=== PATIENT | male | born 1945 | race Caucasian/White ===

== ENCOUNTER 2018-03-16 13:20 | Inpatient (IN) | payer MEDICARE, MEDICAID ==
[~2018-03-16] VITALS: Ht 175.3 cm; Wt 105.2 kg
[2018-03-16 13:28] VITALS: BP 124/82
[2018-03-16] MEDS ORDERED: SEROQUEL25 MG ORAL (13:32)
[2018-03-16] MEDS ORDERED: ASPIR 8181 MG ORAL (13:32)
[2018-03-16] MEDS ORDERED: NOVOLOG100 UNITS1 (13:32)
[2018-03-16] MEDS ORDERED: LIPITOR80 MG ORAL (13:32)
[2018-03-16] MEDS ORDERED: Pantoprazole Inj IV ONE (13:45)
[2018-03-16] MEDS ORDERED: Morphine Sulfate 4mg/ml Inj (IV/IM USE ONLY) IVP ONE (13:45)
--- NOTE | 2018-03-16 13:51 | NUR ---
ED Nurse Note: Patient QU[facility] ([facility]) from [facility] for rectal bleeding, EMS states it started at 1030 AM with bright red blood. Pt is A&O x3, V/S stable. Pt connected to the awake overnight monitor. ERMD at bedside evaluating the pt. Will continue to monitor the pt.
--- NOTE | 2018-03-16 13:59 | Emergency Room Report ---
History of Present Illness General Chief Complaint: Gastrointestinal Bleed Source: Medical Record Present Illness HPI Patient is a 73-year-old male sent in from nursing facility after increased rectal bleeding. Patient had prior history of dementia as well as COPD. Patient reports being a smoker. He reports having some increased difficulty breathing associated with increased rectal bleeding. Patient denies any abdominal pain. He denies any history of liver disease. Patient not been having any vomiting or diarrhea. Patient was sent in from alf..Patient reportedly had been having bright red blood with blood clots from his rectal area. Patient had onset of symptoms today. Patient had prior history of psychiatric disease. Patient was not noted to be on any blood thinners. Allergies: Coded Allergies: No Known Allergies (Unverified , 03/16/18) Patient History Past Medical History: see triage record, COPD Reviewed Nursing Documentation: PMH: Agreed; PSxH: Agreed Nursing Documentation-PMH Past Medical History: No History, Except For Hx Cardiac Problems: Yes - Anemia,hypothyroidism, Hx COPD: Yes - PNA, arf with hypoxia, Hx Diabetes: Yes - type 2 History Of Psychiatric Problem: Yes - schizo Review of Systems All Other Systems: negative except mentioned in HPI Physical Exam Vital Signs Date Time Temp Pulse Resp B/P (MAP) Pulse Ox O2 Delivery O2 Flow Rate FiO2 03/16/18 13:24 97.3 77 24 124/82 93 Nasal Cannula 4.0 General Appearance: non-toxic, obese, Chronically Ill ENT: nasal congestion Neck: limited range of motion Respiratory: wheezing Cardiovascular #1: normal inspection Gastrointestinal: normal inspection, normal bowel sounds, non tender, soft Musculoskeletal: normal inspection Neurologic: normal inspection, alert, responsive Psychiatric: anxious Medical Decision Making Diagnostic Impression: Primary Impression: Gastrointestinal hemorrhage Additional Impressions: COPD (chronic obstructive pulmonary disease) Psychosis Anemia ER Course Patient presented for GI bleed. Differential diagnosis include was not limited to ulcer, gastritis, diverticulosis among others. because of complexity of patient's case laboratory testing and imaging studies were ordered.Patient was noted to have some evidence of mild anemia. The patient was noted to have large amount of bright red blood per rectum. There is no evident external hemorrhoids noted. Laboratory testing was notable for normal coagulation studies as well as normal platelet count. Patient given a breathing treatment. He was given IV Protonix. Dr. Michele Ortiz was contacted for inpatient management due to primary care physician. Dr. Dixon was contacted for GI consult. Dr. Jauregui was contacted for surgical consult. Labs Test 03/16/18 13:40 03/16/18 14:41 White Blood Count 9.8 K/UL (4.8-10.8) Red Blood Count 4.16 M/UL (4.70-6.10) Hemoglobin 11.3 G/DL (14.2-18.0) Hematocrit 35.9 % (42.0-52.0) Mean Corpuscular Volume 86 FL (80-99) Mean Corpuscular Hemoglobin 27.3 PG (27.0-31.0) Mean Corpuscular Hemoglobin Concent 31.6 G/DL (32.0-36.0) Red Cell Distribution Width 22.4 % (11.6-14.8) Platelet Count 277 K/UL (150-450) Mean Platelet Volume 7.6 FL (6.5-10.1) Neutrophils (%) (Auto) 61.3 % (45.0-75.0) Lymphocytes (%) (Auto) 15.7 % (20.0-45.0) Monocytes (%) (Auto) 14.5 % (1.0-10.0) Eosinophils (%) (Auto) 7.2 % (0.0-3.0) Basophils (%) (Auto) 1.3 % (0.0-2.0) Prothrombin Time 10.5 SEC (9.30-11.50) Prothromb Time International Ratio 1.0 (0.9-1.1) Activated Partial Thromboplast Time 31 SEC (23-33) Sodium Level 143 MMOL/L (136-145) Potassium Level 4.4 MMOL/L (3.5-5.1) Chloride Level 108 MMOL/L (98-107) Carbon Dioxide Level 29 MMOL/L (21-32) Anion Gap 6 mmol/L (5-15) Blood Urea Nitrogen 19 mg/dL (7-18) Creatinine 0.9 MG/DL (0.55-1.30) Estimat Glomerular Filtration Rate mL/min (>60) Glucose Level 99 MG/DL (74-106) Calcium Level 9.2 MG/DL (8.5-10.1) Total Bilirubin 0.3 MG/DL (0.2-1.0) Aspartate Amino Transf (AST/SGOT) 13 U/L (15-37) Alanine Aminotransferase (ALT/SGPT) 15 U/L (12-78) Alkaline Phosphatase 115 U/L (46-116) Total Protein 7.0 G/DL (6.4-8.2) Albumin 3.1 G/DL (3.4-5.0) Globulin 3.9 g/dL Albumin/Globulin Ratio 0.8 (1.0-2.7) Lipase 124 U/L (73-393) EKG Diagnostic Results Rate: normal Rhythm: other - atrial fibrilation 100 Last Vital Signs Date Time Temp Pulse Resp B/P (MAP) Pulse Ox O2 Delivery O2 Flow Rate FiO2 03/16/18 13:31 89 19 Room Air 03/16/18 13:28 97.3 124/82 93 03/16/18 13:24 4.0 Status: unchanged Disposition: ADMITTED INPATIENT Condition: Serious Desean Sethi MD Mar 16, 2018 13:59
[2018-03-16] MEDS ORDERED: Albuterol/Ipratropium 3ml neb HHN ONE (14:00)
[2018-03-16 14:01] LABS: BASOPHILS % (AUTO) 1.3 % (0.0-2.0); EOSINOPHILS % (AUTO) 7.2 % (0.0-3.0); HEMATOCRIT 35.9 % (42.0-52.0); HEMOGLOBIN 11.3 G/DL (14.2-18.0); LYMPHOCYTES % (AUTO) 15.7 % (20.0-45.0); MEAN CORPUSCULAR VOLUME 86 FL (80-99); MONOCYTES % (AUTO) 14.5 % (1.0-10.0); NEUTROPHILS % (AUTO) 61.3 % (45.0-75.0); PLATELET COUNT 277 K/UL (150-450); RED BLOOD COUNT 4.16 M/UL (4.70-6.10); RED CELL DISTRIBUTION WIDTH 22.4 % (11.6-14.8); WHITE BLOOD COUNT 9.8 K/UL (4.8-10.8)
[2018-03-16 14:09] LABS: ANION GAP 6 mmol/L (5-15); BLOOD UREA NITROGEN 19 mg/dL (7-18); CALCIUM 9.2 MG/DL (8.5-10.1); CARBON DIOXIDE 29 MMOL/L (21-32); CHLORIDE 108 MMOL/L (98-107); CREATININE 0.9 MG/DL (0.55-1.30); POTASSIUM 4.4 MMOL/L (3.5-5.1); SODIUM 143 MMOL/L (136-145)
[2018-03-16 14:13] LABS: ALANINE AMINOTRANSFERASE 15 U/L (12-78); ALBUMIN 3.1 G/DL (3.4-5.0); ALBUMIN/GLOBULIN RATIO 0.8 (1.0-2.7); ALKALINE PHOSPHATASE 115 U/L (46-116); ASPARTATE AMINO TRANSFERASE 13 U/L (15-37); BILIRUBIN,TOTAL 0.3 MG/DL (0.2-1.0)
--- NOTE | 2018-03-16 14:45 | NUR ---
ED Nurse Note: Urine sample sent down to the lab.
[2018-03-16 14:55] LABS: APPEARANCE,URINE CLEAR; BILIRUBIN, URINE NEGATIVE (NEGATIVE); COLOR,URINE PALE YELLOW; GLUCOSE, URINE (UA) NEGATIVE (NEGATIVE); KETONES,URINE NEGATIVE (NEGATIVE); LEUKOCYTE ESTERASE ,URINE NEGATIVE (NEGATIVE); NITRITE,URINE NEGATIVE (NEGATIVE); PH,URINE 5 (4.5-8.0); PROTEIN,URINE 1+ (NEGATIVE); UROBILINOGEN,URINE NORMAL MG/DL (0.0-1.0)
[2018-03-16 15:28] VITALS: BP 120/75
--- NOTE | 2018-03-16 16:00 | NUR ---
NURSE NOTES: Patient arrived at unit 16:00. Patient is AAO x 2. confused with time and purpose. Patient has left hand 20g IV site patent and intact. Reorientated patient to unit. Heart monitor applied. Patient on o2 NC 2L. Patient has repeating words and rambling but respond to questions appropriately. 17:00: Contacted and received orders from Dr. Villanueva. 17:30: Alfonso Whitlock seen patient. Possible colonoscopy for plan of care. 19:00: Patient stating pain in right arm 10/10. States it has been happening for a week and comes and go. Paged Dr. Juan Villanueva for further orders through service number.
--- NOTE | 2018-03-16 16:10 | NUR ---
ED Nurse Note: Patient transferred to Tele in a gurney accompanied by director of technology with IV saline lock, connected to the monitor tech. Pt V/S stable with no s/s of acute distress noted. Pt's belongings sent up with the patient and report given to NICOLE Reich over in Tele.
[2018-03-16 16:39] VITALS: BP 136/82
--- NOTE | 2018-03-16 17:30 | GI Initial Consult Note ---
History of Present Illness General Date patient seen: Mar 16, 2018 Time patient seen: 17:17 Reason for Hospitalization: Gastrointestinal Bleed Referring physician: MONI Reason for Consultation: LGIB Present Illness HPI Patient is a 73-year-old male sent in from nursing facility after increased rectal bleeding. Patient had prior history of dementia as well as COPD. Patient reports being a smoker. He reports having some increased difficulty breathing associated with increased rectal bleeding. Patient denies any abdominal pain. He denies any history of liver disease. Patient not been having any vomiting or diarrhea. Patient was sent in from alf..Patient reportedly had been having bright red blood with blood clots from his rectal area. Patient had onset of symptoms today. Patient had prior history of psychiatric disease. Patient was not noted to be on any blood thinners. GI consulted for LGIB. ROS limited, patient with psychiatric history. Pt seen , awake A&Ox2 NAD has c/o of BRBPR. Patient stated been having this problem for a few days. Denied any previous onset. Stated he had history of colonoscopy approximately a few years, but unsure of the results. Labs reviewed , patient noted with mild normocytic anemia. Home Meds Reported Medications Quetiapine Fumarate* (SEROQUEL*) 25 Mg Tablet, 25 MG ORAL DAILY, TAB 03/16/18 Insulin Aspart (Novolog Flexpen) 100 Unit/1 Ml Insuln.pen 03/16/18 Atorvastatin (Lipitor) 80 Mg Tablet, 80 MG ORAL BEDTIME, #30 TAB 0 Refills 03/16/18 Aspirin* (ASPIR 81*) 81 Mg Tablet.dr, 81 MG ORAL DAILY, TAB 03/16/18 Med list reviewed/reconciled: Yes Allergies: Coded Allergies: No Known Allergies (Unverified , 03/16/18) Patient History Limited by: medical condition History Provided By: Family Member, Medical Record PMH Narrative Past Medical History: see triage record, COPD Reviewed Nursing Documentation: PMH: Agreed; PSxH: Agreed Nursing Documentation-PMH Past Medical History: No History, Except For Hx Cardiac Problems: Yes - Anemia,hypothyroidism, Hx COPD: Yes - PNA, arf with hypoxia, Hx Diabetes: Yes - type 2 History Of Psychiatric Problem: Yes - schizo Social History: Reports: smoking; Denies: alcohol use, drug use, other Review of Systems All Other Systems: negative except mentioned in HPI Physical Exam Vital Signs Date Time Temp Pulse Resp B/P (MAP) Pulse Ox O2 Delivery O2 Flow Rate FiO2 03/16/18 13:24 97.3 77 24 124/82 93 Nasal Cannula 4.0 03/16/18 14:11 28 Sp02 EP Interpretation: reviewed, normal Labs Laboratory Tests Test 03/16/18 13:40 03/16/18 14:41 White Blood Count 9.8 K/UL (4.8-10.8) Red Blood Count 4.16 M/UL (4.70-6.10) L Hemoglobin 11.3 G/DL (14.2-18.0) L Hematocrit 35.9 % (42.0-52.0) L Mean Corpuscular Volume 86 FL (80-99) Mean Corpuscular Hemoglobin 27.3 PG (27.0-31.0) Mean Corpuscular Hemoglobin Concent 31.6 G/DL (32.0-36.0) L Red Cell Distribution Width 22.4 % (11.6-14.8) H Platelet Count 277 K/UL (150-450) Mean Platelet Volume 7.6 FL (6.5-10.1) Neutrophils (%) (Auto) 61.3 % (45.0-75.0) Lymphocytes (%) (Auto) 15.7 % (20.0-45.0) L Monocytes (%) (Auto) 14.5 % (1.0-10.0) H Eosinophils (%) (Auto) 7.2 % (0.0-3.0) H Basophils (%) (Auto) 1.3 % (0.0-2.0) Prothrombin Time 10.5 SEC (9.30-11.50) Prothromb Time International Ratio 1.0 (0.9-1.1) Activated Partial Thromboplast Time 31 SEC (23-33) Stool Occult Blood Pending Sodium Level 143 MMOL/L (136-145) Potassium Level 4.4 MMOL/L (3.5-5.1) Chloride Level 108 MMOL/L (98-107) H Carbon Dioxide Level 29 MMOL/L (21-32) Anion Gap 6 mmol/L (5-15) Blood Urea Nitrogen 19 mg/dL (7-18) H Creatinine 0.9 MG/DL (0.55-1.30) Estimat Glomerular Filtration Rate mL/min (>60) Glucose Level 99 MG/DL (74-106) Calcium Level 9.2 MG/DL (8.5-10.1) Total Bilirubin 0.3 MG/DL (0.2-1.0) Aspartate Amino Transf (AST/SGOT) 13 U/L (15-37) L Alanine Aminotransferase (ALT/SGPT) 15 U/L (12-78) Alkaline Phosphatase 115 U/L (46-116) Total Protein 7.0 G/DL (6.4-8.2) Albumin 3.1 G/DL (3.4-5.0) L Globulin 3.9 g/dL Albumin/Globulin Ratio 0.8 (1.0-2.7) L Lipase 124 U/L (73-393) Urine Color Pale yellow Urine Appearance Clear Urine pH 5 (4.5-8.0) Urine Specific [place] 1.015 (1.005-1.035) Urine Protein 1+ (NEGATIVE) H Urine Glucose (UA) Negative (NEGATIVE) Urine Ketones Negative (NEGATIVE) Urine Blood 5+ (NEGATIVE) H Urine Nitrite Negative (NEGATIVE) Urine Bilirubin Negative (NEGATIVE) Urine Urobilinogen Normal MG/DL (0.0-1.0) Urine Leukocyte Esterase Negative (NEGATIVE) Urine RBC 15-20 /HPF (0 - 0) H Urine WBC 2-4 /HPF (0 - 0) Urine Squamous Epithelial Cells None /LPF (NONE/OCC) Urine Bacteria Few /HPF (NONE) Urine Yeast Few /HPF (NONE) H General Appearance: well appearing, no apparent distress, alert Head: normocephalic EENT: PERRL/EOMI, normal ENT inspection Neck: supple Respiratory: normal breath sounds, no respiratory distress Cardiovascular: normal rate Gastrointestinal: normal inspection, non tender, soft, normal bowel sounds, non -distended Rectal: deferred Genitourinary: deferred Musculoskeletal: normal inspection, back normal Neurologic: normal inspection, alert, oriented x3, responsive Psychiatric: normal inspection, judgement/insight normal, memory normal Skin: normal inspection, normal color, no rash, warm/dry, palpation normal, well hydrated Lymphatic: normal inspection, no adenopathy GI: Plan Problems: (1) LGI bleed (2) Acute hemorrhoid (3) Gastrointestinal hemorrhage (4) Psychosis (5) Anemia (6) COPD (chronic obstructive pulmonary disease) Plan stable H&H plan for colonoscopy this Sunday CLD now, will prep patient tomorrow monitor H&H, prn transfusions ppi anusol BID zofran prn anemia work up follow labs Discussed with Dr. Dixon. Thank you for this patient referral, we will follow. The patient was seen and examined at bedside and all new and available data was reviewed in the patients chart. I agree with the above findings, impression and plan. (Patient seen earlier today. Signature stamp does not reflect patient encounter time.). - MD Batsheva CalderonAvenir Behavioral Health Center At SurpriseKorey ROLLER COASTER DESIGNER Mar 16, 2018 17:30
[2018-03-16] MEDS ORDERED: Pantoprazole Inj IVP SCH (18:00)
[2018-03-16 20:00] VITALS: BP 132/82
[2018-03-16] MEDS: D5NS 1,000 ML IV SCH (20:02)
--- NOTE | 2018-03-16 20:27 | NUR ---
HAND-OFF: Report given to NICOLE Jhaveri. patient resting in bed.
--- NOTE | 2018-03-16 20:28 | NUR ---
NURSE NOTES: Received pt from NICOLE Reich. Pt awake, alert, and screaming in pain "help me help me". Bed in lowest position. Call light within reach. Will continue to monitor.
[2018-03-16 20:47] LABS: BASOPHILS % (AUTO) 2.1 % (0.0-2.0); EOSINOPHILS % (AUTO) 7.9 % (0.0-3.0); HEMATOCRIT 34.3 % (42.0-52.0); HEMOGLOBIN 10.6 G/DL (14.2-18.0); LYMPHOCYTES % (AUTO) 19.4 % (20.0-45.0); MEAN CORPUSCULAR VOLUME 88 FL (80-99); MONOCYTES % (AUTO) 17.6 % (1.0-10.0); NEUTROPHILS % (AUTO) 53.1 % (45.0-75.0); PLATELET COUNT 262 K/UL (150-450); RED BLOOD COUNT 3.91 M/UL (4.70-6.10); RED CELL DISTRIBUTION WIDTH 21.8 % (11.6-14.8); WHITE BLOOD COUNT 10.3 K/UL (4.8-10.8)
[2018-03-16] MEDS: Pantoprazole Inj IVP SCH (20:47)
[2018-03-16] MEDS: NovoLOG Insulin Flexpen SUBQ SCH (20:49)
--- NOTE | 2018-03-16 21:00 | NUR ---
NURSE NOTES: Called and left a message with Dr. Villanueva regarding pts request for pain meds, sleep aid, and anxiety. She called back with orders for morphine 2mg q4 iv prn and ativan 1mg q6 prn. Will input orders
[2018-03-16] MEDS: Morphine Sulfate 2mg/ml Inj IVP PRN (22:38)
[2018-03-17] VITALS: BP 135/80
[2018-03-17] MEDS: LORazepam Inj 2mg/ml 1ml IV PRN (01:07)
[2018-03-17] MEDS ORDERED: Digoxin 0.5mg/2ml Inj IVP ONE (03:45)
--- NOTE | 2018-03-17 03:50 | NUR ---
NURSE NOTES: Called and spoke with Dr. Villanueva regarding pts Afib with RVR. She gave orders for Digoxin 250 mcg IV once. Will input order.
[2018-03-17 04:00] VITALS: BP 129/91
[2018-03-17] MEDS: D5NS 1,000 ML IV SCH ×2 (04:00→11:43)
[2018-03-17] MEDS: NovoLOG Insulin Flexpen SUBQ SCH ×4 (05:52→21:00)
--- NOTE | 2018-03-17 07:37 | NUR ---
HAND-OFF: Report given to Carlos Alberto. pt stable.
[2018-03-17 07:41] LABS: BASOPHILS % (AUTO) 1.5 % (0.0-2.0); EOSINOPHILS % (AUTO) 7.2 % (0.0-3.0); HEMATOCRIT 33.7 % (42.0-52.0); HEMOGLOBIN 10.7 G/DL (14.2-18.0); LYMPHOCYTES % (AUTO) 15.8 % (20.0-45.0); MEAN CORPUSCULAR VOLUME 87 FL (80-99); MONOCYTES % (AUTO) 15.8 % (1.0-10.0); NEUTROPHILS % (AUTO) 59.8 % (45.0-75.0); PLATELET COUNT 272 K/UL (150-450); RED BLOOD COUNT 3.88 M/UL (4.70-6.10); RED CELL DISTRIBUTION WIDTH 22.2 % (11.6-14.8); WHITE BLOOD COUNT 11.3 K/UL (4.8-10.8)
--- NOTE | 2018-03-17 07:45 | NUR ---
NURSE NOTES: Pt received from Shakila Sargent RN alert and oriented x3. No acute distress at this time. IV site asymptomatic and patent. Bed in lowest position, call light and belongings within reach. On 2L NC - no s/s of SOB or chest pain, saturating at 95%.
[2018-03-17 08:00] VITALS: BP 171/87
[2018-03-17 08:17] LABS: % IRON SATURATION 24 % (15-50); IRON 50 ug/dL (50-175); TOTAL IRON BINDING CAPACITY 211 ug/dL (250-450)
[2018-03-17 08:25] LABS: ALANINE AMINOTRANSFERASE 14 U/L (12-78); ALBUMIN/GLOBULIN RATIO 0.8 (1.0-2.7); ALKALINE PHOSPHATASE 110 U/L (46-116); ANION GAP 8 mmol/L (5-15); ASPARTATE AMINO TRANSFERASE 18 U/L (15-37); BILIRUBIN,TOTAL 0.3 MG/DL (0.2-1.0); BLOOD UREA NITROGEN 13 mg/dL (7-18); CALCIUM 8.6 MG/DL (8.5-10.1); CARBON DIOXIDE 28 MMOL/L (21-32); CHLORIDE 107 MMOL/L (98-107); FERRITIN 50 NG/ML (8-388); SODIUM 142 MMOL/L (136-145)
[2018-03-17] MEDS: Pantoprazole Inj IVP SCH ×2 (09:02→20:52)
[2018-03-17] MEDS: Morphine Sulfate 2mg/ml Inj IVP PRN ×3 (09:03→20:53)
--- NOTE | 2018-03-17 09:03 | NUR ---
CASE MANAGEMENT: INITIAL REVIEW 73 YO M [facility] FROM [facility] CC: GI BLEED. PMHx: ANEMIA. HYPOTHYROIDISM. PNA. ARF W/ HYPOXIA. DM. SCHIZO. SI:LOWER GI BLEED. T 97.3 HR 77 RR 24 B/P 124/82 SATS 93% ON 4L/NC WBC 11.3 HGB 10.7 HCT 33.7 TSH 49.435 STOOL OB (+) IS: PROTONIX IV X1 NS BOLUS X1 MORPHINE IV X1 DUONEB HHN X1 PATIENT ADMITTED TO TELE 03/16/2018 @ 1535 DCP: PATIENT TO BE DISCHARGED TO SNF ONCE MEDICALLY CLEARED. PLAN OF CARE: COLONOSCOPY Addendum: 03/17/18 at 1445 by Yadira Melgoza CM INTERQUAL MET FOR ACUTE
--- NOTE | 2018-03-17 10:01 | History and Physical ---
History of Present Illness General Date patient seen: Mar 17, 2018 Reason for Hospitalization: Gastrointestinal Bleed Present Illness HPI 73 y/o male with copd,psych d/o sent to er for BRBPR. Pt. states has had this for several days. Has been on asa nand possible NSAiDS. He had previous coloscopy unknown results. h/h has been trending down. Pt. seen by GI, plan for colonoscopy tomorrow am. He does have episodes of sob/wheezing last few days. Allergies: Coded Allergies: No Known Allergies (Unverified , 03/16/18) Medication History Scheduled Aspirin* (Aspir 81*), 81 MG ORAL DAILY, (Reported) Atorvastatin (Lipitor), 80 MG ORAL BEDTIME, (Reported) Quetiapine Fumarate* (Seroquel*), 25 MG ORAL DAILY, (Reported) Miscellaneous Medications Insulin Aspart (Novolog Flexpen), (Reported) Patient History Healthcare decision maker Resuscitation status Full Code Advanced Directive on File Social History Social History: (1) Smoker in home (2) COPD (chronic obstructive pulmonary disease) (3) Anemia (4) Psychosis (5) LGI bleed Review of Systems Constitutional: Reports: malaise Eye: Denies: no symptoms, see HPI, eye pain, blurred vision, tearing, double vision, nose pain, nose congestion, acuity changes, discharge, other ENT: Denies: no symptoms, see HPI, ear pain, ear discharge, nose pain, nose congestion, throat pain, throat swelling, mouth pain, hearing loss, nasal discharge, other Respiratory: Reports: shortness of breath Cardiovascular: Denies: no symptoms, see HPI, chest pain, edema, palpitations, syncope, PND, other Gastrointestinal: Reports: melena Genitourinary: Denies: no symptoms, see HPI, discharge, dysuria, frequency, hematuria, pain, retention, incontinence, urgency, vag bleed/dc, other Musculoskeletal: Denies: no symptoms, see HPI, back pain, gout, joint pain, joint swelling, muscle pain, muscle stiffness, other Skin: Denies: no symptoms, see HPI, rash, change in color, change in hair/nails , dryness, lesions, other Psychiatric: Denies: no symptoms, see HPI, prior hx, anxiety, depressed feelings, emotional problems, SI, HI, hallucinations, other Neurological: Denies: no symptoms, see HPI, headache, numbness, paresthesia, seizure, tingling, tremors, focal weakness, syncope, dizziness, other Endocrine: Denies: no symptoms, see HPI, excessive sweating, flushing, intolerance to temperature, increased thirst, increased urine, unexplained weight loss, other Physical Exam General Appearance: no apparent distress, alert HEENT: normocephalic, atraumatic, anicteric, EOMI Neck: non-tender Respiratory/Chest: expiratory wheezing Cardiovascular/Chest: normal peripheral pulses Abdomen: normal bowel sounds, non tender, no organomegaly, no mass Genitourinary/Rectal: normal genital exam Extremities: normal range of motion, no calf tenderness Skin Exam: warm/dry Neurologic: oriented x 3 Last 24 Hour Vital Signs Date Time Temp Pulse Resp B/P (MAP) Pulse Ox O2 Delivery O2 Flow Rate FiO2 03/17/18 08:00 97.4 109 20 171/87 (115) 95 03/17/18 04:24 127 03/17/18 04:21 108 03/17/18 04:00 97.5 64 24 129/91 (104) 94 03/17/18 04:00 129 03/17/18 01:33 131 03/17/18 00:00 97.3 72 24 135/80 (98) 95 03/16/18 23:08 97.7 03/16/18 21:00 Room Air 03/16/18 20:00 97.3 67 24 132/82 (99) 95 03/16/18 20:00 104 03/16/18 18:30 Nasal Cannula 2.0 03/16/18 16:39 97.7 97 18 136/82 (100) 95 03/16/18 16:06 97.8 103 17 115/70 96 Nasal Cannula 2.0 28 03/16/18 15:28 97.8 101 15 120/75 96 Nasal Cannula 2.0 03/16/18 14:32 97.3 03/16/18 14:30 84 22 98 Nasal Cannula 2.0 28 03/16/18 14:11 91 16 100 Nasal Cannula 2.0 28 03/16/18 13:31 89 19 Room Air 03/16/18 13:28 97.3 89 19 124/82 93 Room Air 03/16/18 13:24 97.3 77 24 124/82 93 Nasal Cannula 4.0 Intake and Output 2/9/19 2/10/19 18:59 06:59 Intake Total 120 ml 120 ml Output Total 400 ml Balance -280 ml 120 ml Intake Oral 120 ml 120 ml Output Urine Total 400 ml # Voids 1 4 Laboratory Tests Test 03/16/18 13:40 03/16/18 14:41 03/16/18 20:00 03/17/18 06:40 White Blood Count 9.8 K/UL (4.8-10.8) 10.3 K/UL (4.8-10.8) 11.3 K/UL (4.8-10.8) H Red Blood Count 4.16 M/UL (4.70-6.10) L 3.91 M/UL (4.70-6.10) L 3.88 M/UL (4.70-6.10) L Hemoglobin 11.3 G/DL (14.2-18.0) L 10.6 G/DL (14.2-18.0) L 10.7 G/DL (14.2-18.0) L Hematocrit 35.9 % (42.0-52.0) L 34.3 % (42.0-52.0) L 33.7 % (42.0-52.0) L Mean Corpuscular Volume 86 FL (80-99) 88 FL (80-99) 87 FL (80-99) Mean Corpuscular Hemoglobin 27.3 PG (27.0-31.0) 27.1 PG (27.0-31.0) 27.4 PG (27.0-31.0) Mean Corpuscular Hemoglobin Concent 31.6 G/DL (32.0-36.0) L 31.0 G/DL (32.0-36.0) L 31.6 G/DL (32.0-36.0) L Red Cell Distribution Width 22.4 % (11.6-14.8) H 21.8 % (11.6-14.8) H 22.2 % (11.6-14.8) H Platelet Count 277 K/UL (150-450) 262 K/UL (150-450) 272 K/UL (150-450) Mean Platelet Volume 7.6 FL (6.5-10.1) 6.8 FL (6.5-10.1) 6.5 FL (6.5-10.1) Neutrophils (%) (Auto) 61.3 % (45.0-75.0) 53.1 % (45.0-75.0) 59.8 % (45.0-75.0) Lymphocytes (%) (Auto) 15.7 % (20.0-45.0) L 19.4 % (20.0-45.0) L 15.8 % (20.0-45.0) L Monocytes (%) (Auto) 14.5 % (1.0-10.0) H 17.6 % (1.0-10.0) H 15.8 % (1.0-10.0) H Eosinophils (%) (Auto) 7.2 % (0.0-3.0) H 7.9 % (0.0-3.0) H 7.2 % (0.0-3.0) H Basophils (%) (Auto) 1.3 % (0.0-2.0) 2.1 % (0.0-2.0) H 1.5 % (0.0-2.0) Prothrombin Time 10.5 SEC (9.30-11.50) 10.7 SEC (9.30-11.50) Prothromb Time International Ratio 1.0 (0.9-1.1) 1.0 (0.9-1.1) Activated Partial Thromboplast Time 31 SEC (23-33) 31 SEC (23-33) Stool Occult Blood Positive (NEGATIVE) Sodium Level 143 MMOL/L (136-145) 142 MMOL/L (136-145) Potassium Level 4.4 MMOL/L (3.5-5.1) 4.0 MMOL/L (3.5-5.1) Chloride Level 108 MMOL/L (98-107) H 107 MMOL/L (98-107) Carbon Dioxide Level 29 MMOL/L (21-32) 28 MMOL/L (21-32) Anion Gap 6 mmol/L (5-15) 8 mmol/L (5-15) Blood Urea Nitrogen 19 mg/dL (7-18) H 13 mg/dL (7-18) Creatinine 0.9 MG/DL (0.55-1.30) 1.0 MG/DL (0.55-1.30) Estimat Glomerular Filtration Rate mL/min (>60) mL/min (>60) Glucose Level 99 MG/DL (74-106) 88 MG/DL (74-106) Calcium Level 9.2 MG/DL (8.5-10.1) 8.6 MG/DL (8.5-10.1) Total Bilirubin 0.3 MG/DL (0.2-1.0) 0.3 MG/DL (0.2-1.0) Aspartate Amino Transf (AST/SGOT) 13 U/L (15-37) L 18 U/L (15-37) Alanine Aminotransferase (ALT/SGPT) 15 U/L (12-78) 14 U/L (12-78) Alkaline Phosphatase 115 U/L (46-116) 110 U/L (46-116) Total Protein 7.0 G/DL (6.4-8.2) 6.7 G/DL (6.4-8.2) Albumin 3.1 G/DL (3.4-5.0) L 3.0 G/DL (3.4-5.0) L Globulin 3.9 g/dL 3.7 g/dL Albumin/Globulin Ratio 0.8 (1.0-2.7) L 0.8 (1.0-2.7) L Lipase 124 U/L (73-393) Urine Color Pale yellow Urine Appearance Clear Urine pH 5 (4.5-8.0) Urine Specific [place] 1.015 (1.005-1.035) Urine Protein 1+ (NEGATIVE) H Urine Glucose (UA) Negative (NEGATIVE) Urine Ketones Negative (NEGATIVE) Urine Blood 5+ (NEGATIVE) H Urine Nitrite Negative (NEGATIVE) Urine Bilirubin Negative (NEGATIVE) Urine Urobilinogen Normal MG/DL (0.0-1.0) Urine Leukocyte Esterase Negative (NEGATIVE) Urine RBC 15-20 /HPF (0 - 0) H Urine WBC 2-4 /HPF (0 - 0) Urine Squamous Epithelial Cells None /LPF (NONE/OCC) Urine Bacteria Few /HPF (NONE) Urine Yeast Few /HPF (NONE) H Reticulocyte Count Pending Iron Level 50 ug/dL (50-175) Total Iron Binding Capacity 211 ug/dL (250-450) L Percent Iron Saturation 24 % (15-50) Unsaturated Iron Binding 161 ug/dL (112-346) Ferritin 50 NG/ML (8-388) Carcinoembryonic Antigen Pending Vitamin B12 Level 535 PG/ML (193-986) Folate 12.4 NG/ML (8.6-58.9) Thyroid Stimulating Hormone (TSH) 49.435 uiU/mL (0.358-3.740) Free Thyroxine 0.37 NG/DL (0.76-1.46) L Microbiology Date/Time Source Procedure Growth Status 03/16/18 14:41 Urine,Clean Catch Urine Culture - Preliminary NO GROWTH Resulted Height (Feet): 5 Height (Inches): 9.00 Weight (Pounds): 180 Medications Current Medications Medications (Trade) Dose Ordered Sig/Valeria Route PRN Reason Start Time Stop Time Status Last Admin Dose Admin Bisacodyl (Dulcolax) 10 mg ONCE ORAL 03/17/18 16:00 03/17/18 17:30 Dextrose (Dextrose 50%) 25 ml Q30M PRN IV Hypoglycemia 03/16/18 17:43 04/15/18 17:42 Dextrose (Dextrose 50%) 50 ml Q30M PRN IV Hypoglycemia 03/16/18 17:42 04/15/18 17:41 Dextrose/Sodium Chloride 1,000 ml @ 100 mls/hr Q10H IV 03/16/18 18:00 04/15/18 17:59 03/16/18 20:02 Hydrocortisone (Anusol HC) 1 applic Q12HR RECTAL 03/16/18 21:00 04/15/18 20:59 03/17/18 09:02 Insulin Aspart (NovoLOG) BEFORE MEALS AND HS SUBQ 03/16/18 21:00 04/15/18 20:59 03/16/18 20:49 Lorazepam (Ativan 2mg/ml 1ml) 1 mg Q6H PRN IV For Anxiety 03/16/18 21:44 03/23/18 21:43 03/17/18 01:07 Magnesium Citrate (Citrate Of Magnesia) 300 ml ONCE ONCE ORAL 03/17/18 16:00 03/17/18 16:01 Morphine Sulfate (Morphine Sulfate) 2 mg Q4H PRN IVP For Pain 03/16/18 21:44 2/16/19 21:43 03/17/18 09:03 Pantoprazole (Protonix) 40 mg Q12HR IVP 03/16/18 21:00 04/15/18 20:59 03/17/18 09:02 Polyethylene Glycol (Miralax) 238 gm ONCE ONCE ORAL 03/17/18 16:00 03/17/18 16:01 Quetiapine Fumarate (SEROquel) 25 mg DAILY ORAL 03/17/18 09:00 04/16/18 08:59 03/17/18 09:02 Sodium Phosphate (Fleet's Sodium Phosl Enema) 133 ml ONCE RECTAL 03/17/18 23:00 03/18/18 00:00 Assessment/Plan Problem List: (1) COPD (chronic obstructive pulmonary disease) Assessment & Plan: -will get cxr prior to colonoscopy -resume hhn, o2 prn -d/w pt. smoking cessation ICD Codes: J44.9 - Chronic obstructive pulmonary disease, unspecified SNOMED: 76280554 (2) LGI bleed Assessment & Plan: -follow h/h. -appreciate gi eval -planned gi w/u in am -hold asa -cont ppi, dvt prophylaxis ICD Codes: K92.2 - Gastrointestinal hemorrhage, unspecified SNOMED: [id number] Michele Ortiz M.D. Mar 17, 2018 10:01
[2018-03-17 12:00] VITALS: BP 146/94
--- NOTE | 2018-03-17 13:35 | Consultation ---
History of Present Illness General Date patient seen: Mar 17, 2018 Reason for Hospitalization: Gastrointestinal Bleed Present Illness HPI 73 year old male correction resident with multiple medical comorbidities on ASA presented with increased BRBPR. Has been noted for short period of time and concerning. No prior similar history. otherwise normal BM's. is care dependant and a poor historian. on admission noted to be anemic. Surgery called to evaluate for lower GI bleed and be available in case worsening, persist, or needs surgical intervention. patient seen, chart reviewed, patient examined. currently anticipating colonoscopy tomorrow Allergies: Coded Allergies: No Known Allergies (Unverified , 03/16/18) Medication History Scheduled Aspirin* (Aspir 81*), 81 MG ORAL DAILY, (Reported) Atorvastatin (Lipitor), 80 MG ORAL BEDTIME, (Reported) Quetiapine Fumarate* (Seroquel*), 25 MG ORAL DAILY, (Reported) Miscellaneous Medications Insulin Aspart (Novolog Flexpen), (Reported) Patient History Limited by: medical condition History Provided By: Patient, Medical Record, PMD Healthcare decision maker Resuscitation status Full Code Advanced Directive on File Past Medical/Surgical History Past Medical/Surgical History: (1) COPD (chronic obstructive pulmonary disease) (2) Anemia (3) Psychosis (4) Gastrointestinal hemorrhage (5) LGI bleed (6) Acute hemorrhoid Review of Systems Review of Symptoms General ROS: no weight loss or fever Psychological ROS: no depression or mood changes, no memory loss Ophthalmic ROS: no visual changes or eye irritation ENT ROS: no nasal congestion, hearing loss, dizziness Allergy and Immunology ROS: no allergic symptoms or urticaria Hematological and Lymphatic ROS: no swollen glands, unusual bleeding or bruising Endocrine ROS: no polyuria, polydipsia, weight changes, temperature intolerance Respiratory ROS: no cough, shortness of breath, or wheezing Cardiovascular ROS: no chest pain or dyspnea on exertion Gastrointestinal ROS: denies abdominal pain, bright red blood in stool. Musculoskeletal ROS: no myalgias or arthralgias Neurological ROS: no TIA or stroke symptoms Dermatological ROS: no new or changing skin lesions, rashes or pruritis Physical Exam Physical Exam General appearance: alert, cooperative, no distress, appears stated age Head: Normocephalic, without obvious abnormality, atraumatic Eyes: conjunctivae/corneas clear. PERRL, EOM's intact. Fundi benign Throat: Lips, mucosa, and tongue normal. Teeth and gums normal Neck: supple, symmetrical, trachea midline, no adenopathy, thyroid: not enlarged, symmetric, no tenderness/mass/nodules, no carotid bruit and no JVD Lungs: clear to auscultation bilaterally Heart: regular rate and rhythm, S1, S2 normal, no murmur, click, rub or gallop Abdomen: soft, non-tender. Bowel sounds normal. No masses, no organomegaly Extremities: extremities normal, atraumatic, no cyanosis or edema Pulses: 2+ and symmetric Skin: Skin color, texture, turgor normal. No rashes or lesions Neurologic: Grossly normal Last 24 Hour Vital Signs Date Time Temp Pulse Resp B/P (MAP) Pulse Ox O2 Delivery O2 Flow Rate FiO2 03/17/18 12:00 90 03/17/18 12:00 97.2 91 18 146/94 (111) 94 03/17/18 09:00 Room Air 03/17/18 08:00 97.4 109 20 171/87 (115) 95 03/17/18 04:24 127 03/17/18 04:21 108 03/17/18 04:00 97.5 64 24 129/91 (104) 94 03/17/18 04:00 129 03/17/18 01:33 131 03/17/18 00:00 97.3 72 24 135/80 (98) 95 03/16/18 23:08 97.7 03/16/18 21:00 Room Air 03/16/18 20:00 97.3 67 24 132/82 (99) 95 03/16/18 20:00 104 03/16/18 18:30 Nasal Cannula 2.0 03/16/18 16:39 97.7 97 18 136/82 (100) 95 03/16/18 16:06 97.8 103 17 115/70 96 Nasal Cannula 2.0 28 03/16/18 15:28 97.8 101 15 120/75 96 Nasal Cannula 2.0 03/16/18 14:32 97.3 03/16/18 14:30 84 22 98 Nasal Cannula 2.0 28 03/16/18 14:11 91 16 100 Nasal Cannula 2.0 28 03/16/18 13:31 89 19 Room Air Intake and Output 03/16/18 03/17/18 19:00 07:00 Intake Total 120 ml 120 ml Output Total 400 ml Balance -280 ml 120 ml Intake Oral 120 ml 120 ml Output Urine Total 400 ml # Voids 1 4 Laboratory Tests Test 03/16/18 13:40 03/16/18 14:41 03/16/18 20:00 03/17/18 06:40 White Blood Count 9.8 K/UL (4.8-10.8) 10.3 K/UL (4.8-10.8) 11.3 K/UL (4.8-10.8) H Red Blood Count 4.16 M/UL (4.70-6.10) L 3.91 M/UL (4.70-6.10) L 3.88 M/UL (4.70-6.10) L Hemoglobin 11.3 G/DL (14.2-18.0) L 10.6 G/DL (14.2-18.0) L 10.7 G/DL (14.2-18.0) L Hematocrit 35.9 % (42.0-52.0) L 34.3 % (42.0-52.0) L 33.7 % (42.0-52.0) L Mean Corpuscular Volume 86 FL (80-99) 88 FL (80-99) 87 FL (80-99) Mean Corpuscular Hemoglobin 27.3 PG (27.0-31.0) 27.1 PG (27.0-31.0) 27.4 PG (27.0-31.0) Mean Corpuscular Hemoglobin Concent 31.6 G/DL (32.0-36.0) L 31.0 G/DL (32.0-36.0) L 31.6 G/DL (32.0-36.0) L Red Cell Distribution Width 22.4 % (11.6-14.8) H 21.8 % (11.6-14.8) H 22.2 % (11.6-14.8) H Platelet Count 277 K/UL (150-450) 262 K/UL (150-450) 272 K/UL (150-450) Mean Platelet Volume 7.6 FL (6.5-10.1) 6.8 FL (6.5-10.1) 6.5 FL (6.5-10.1) Neutrophils (%) (Auto) 61.3 % (45.0-75.0) 53.1 % (45.0-75.0) 59.8 % (45.0-75.0) Lymphocytes (%) (Auto) 15.7 % (20.0-45.0) L 19.4 % (20.0-45.0) L 15.8 % (20.0-45.0) L Monocytes (%) (Auto) 14.5 % (1.0-10.0) H 17.6 % (1.0-10.0) H 15.8 % (1.0-10.0) H Eosinophils (%) (Auto) 7.2 % (0.0-3.0) H 7.9 % (0.0-3.0) H 7.2 % (0.0-3.0) H Basophils (%) (Auto) 1.3 % (0.0-2.0) 2.1 % (0.0-2.0) H 1.5 % (0.0-2.0) Prothrombin Time 10.5 SEC (9.30-11.50) 10.7 SEC (9.30-11.50) Prothromb Time International Ratio 1.0 (0.9-1.1) 1.0 (0.9-1.1) Activated Partial Thromboplast Time 31 SEC (23-33) 31 SEC (23-33) Stool Occult Blood Positive (NEGATIVE) Sodium Level 143 MMOL/L (136-145) 142 MMOL/L (136-145) Potassium Level 4.4 MMOL/L (3.5-5.1) 4.0 MMOL/L (3.5-5.1) Chloride Level 108 MMOL/L (98-107) H 107 MMOL/L (98-107) Carbon Dioxide Level 29 MMOL/L (21-32) 28 MMOL/L (21-32) Anion Gap 6 mmol/L (5-15) 8 mmol/L (5-15) Blood Urea Nitrogen 19 mg/dL (7-18) H 13 mg/dL (7-18) Creatinine 0.9 MG/DL (0.55-1.30) 1.0 MG/DL (0.55-1.30) Estimat Glomerular Filtration Rate mL/min (>60) mL/min (>60) Glucose Level 99 MG/DL (74-106) 88 MG/DL (74-106) Calcium Level 9.2 MG/DL (8.5-10.1) 8.6 MG/DL (8.5-10.1) Total Bilirubin 0.3 MG/DL (0.2-1.0) 0.3 MG/DL (0.2-1.0) Aspartate Amino Transf (AST/SGOT) 13 U/L (15-37) L 18 U/L (15-37) Alanine Aminotransferase (ALT/SGPT) 15 U/L (12-78) 14 U/L (12-78) Alkaline Phosphatase 115 U/L (46-116) 110 U/L (46-116) Total Protein 7.0 G/DL (6.4-8.2) 6.7 G/DL (6.4-8.2) Albumin 3.1 G/DL (3.4-5.0) L 3.0 G/DL (3.4-5.0) L Globulin 3.9 g/dL 3.7 g/dL Albumin/Globulin Ratio 0.8 (1.0-2.7) L 0.8 (1.0-2.7) L Lipase 124 U/L (73-393) Urine Color Pale yellow Urine Appearance Clear Urine pH 5 (4.5-8.0) Urine Specific Bradford 1.015 (1.005-1.035) Urine Protein 1+ (NEGATIVE) H Urine Glucose (UA) Negative (NEGATIVE) Urine Ketones Negative (NEGATIVE) Urine Blood 5+ (NEGATIVE) H Urine Nitrite Negative (NEGATIVE) Urine Bilirubin Negative (NEGATIVE) Urine Urobilinogen Normal MG/DL (0.0-1.0) Urine Leukocyte Esterase Negative (NEGATIVE) Urine RBC 15-20 /HPF (0 - 0) H Urine WBC 2-4 /HPF (0 - 0) Urine Squamous Epithelial Cells None /LPF (NONE/OCC) Urine Bacteria Few /HPF (NONE) Urine Yeast Few /HPF (NONE) H Reticulocyte Count 1.6 % (0.0-2.0) Iron Level 50 ug/dL (50-175) Total Iron Binding Capacity 211 ug/dL (250-450) L Percent Iron Saturation 24 % (15-50) Unsaturated Iron Binding 161 ug/dL (112-346) Ferritin 50 NG/ML (8-388) Carcinoembryonic Antigen Pending Vitamin B12 Level 535 PG/ML (193-986) Folate 12.4 NG/ML (8.6-58.9) Thyroid Stimulating Hormone (TSH) 49.435 uiU/mL (0.358-3.740) Free Thyroxine 0.37 NG/DL (0.76-1.46) L Microbiology Date/Time Source Procedure Growth Status 03/16/18 14:41 Urine,Clean Catch Urine Culture - Preliminary NO GROWTH Resulted Height (Feet): 5 Height (Inches): 9.00 Weight (Pounds): 180 Medications Current Medications Medications (Trade) Dose Ordered Sig/Valeria Route PRN Reason Start Time Stop Time Status Last Admin Dose Admin Bisacodyl (Dulcolax) 10 mg ONCE ORAL 03/17/18 16:00 03/17/18 17:30 Dextrose (Dextrose 50%) 25 ml Q30M PRN IV Hypoglycemia 03/16/18 17:43 04/15/18 17:42 Dextrose (Dextrose 50%) 50 ml Q30M PRN IV Hypoglycemia 03/16/18 17:42 04/15/18 17:41 Dextrose/Sodium Chloride 1,000 ml @ 75 mls/hr [id number] IV 03/17/18 10:30 04/15/18 10:29 03/17/18 11:43 Hydrocortisone (Anusol HC) 1 applic Q12HR RECTAL 03/16/18 21:00 04/15/18 20:59 03/17/18 09:02 Insulin Aspart (NovoLOG) BEFORE MEALS AND HS SUBQ 03/16/18 21:00 04/15/18 20:59 03/17/18 12:40 Lorazepam (Ativan 2mg/ml 1ml) 1 mg Q6H PRN IV For Anxiety 03/16/18 21:44 03/23/18 21:43 03/17/18 01:07 Magnesium Citrate (Citrate Of Magnesia) 300 ml ONCE ONCE ORAL 03/17/18 16:00 03/17/18 16:01 Morphine Sulfate (Morphine Sulfate) 2 mg Q4H PRN IVP For Pain 03/16/18 21:44 03/23/18 21:43 03/17/18 09:03 Pantoprazole (Protonix) 40 mg Q12HR IVP 03/16/18 21:00 04/15/18 20:59 03/17/18 09:02 Polyethylene Glycol (Miralax) 238 gm ONCE ONCE ORAL 03/17/18 16:00 03/17/18 16:01 Quetiapine Fumarate (SEROquel) 25 mg DAILY ORAL 03/17/18 09:00 04/16/18 08:59 03/17/18 09:02 Sodium Phosphate (Fleet's Sodium Phosl Enema) 133 ml ONCE RECTAL 03/17/18 23:00 03/18/18 00:00 Assessment/Plan Problem List: (1) LGI bleed Assessment & Plan: 73 year old male with Acute GI bleed. H/H trending down. no n/v/f/c/. care dependant male from correction with multiple medical comorbidities. on ASA prior. Currently prepping for colonoscopy tomorrow. -Scope tomorrow -trend H/H -blood products available if necessary -surgery available in case continues to bleed and requires surgical intervention thank you for allowing me to participate in patients care ICD Codes: K92.2 - Gastrointestinal hemorrhage, unspecified SNOMED: 36580335 (2) Gastrointestinal hemorrhage ICD Codes: K92.2 - Gastrointestinal hemorrhage, unspecified SNOMED: 75851063 Status: stable Torres Jauregui Mar 17, 2018 13:35
--- NOTE | 2018-03-17 15:20 | GI Progress Note ---
Assessment/Plan Problems: (1) Acute hemorrhoid ICD Codes: K64.9 - Unspecified hemorrhoids SNOMED: 6132434, 65154773 (2) LGI bleed ICD Codes: K92.2 - Gastrointestinal hemorrhage, unspecified SNOMED: 00171986 (3) Gastrointestinal hemorrhage ICD Codes: K92.2 - Gastrointestinal hemorrhage, unspecified SNOMED: 15423839 (4) Anemia ICD Codes: D64.9 - Anemia, unspecified SNOMED: 684759377 Status: stable Status Narrative Discussed with Dr. Dixon Assessment/Plan stable H&H plan for colonoscopy this Sunday CLD now, n.p.o. at midnight monitor H&H, prn transfusions ppi anusol BID zofran prn anemia work up follow labs We will follow with additional recommendations post procedure The patient was seen and examined at bedside and all new and available data was reviewed in the patients chart. I agree with the above findings, impression and plan. (Patient seen earlier today. Signature stamp does not reflect patient encounter time.). - Hitesh Dixon MD Subjective Gastrointestinal/Abdominal: Reports: no symptoms Objective Last 24 Hour Vital Signs Date Time Temp Pulse Resp B/P (MAP) Pulse Ox O2 Delivery O2 Flow Rate FiO2 03/17/18 12:00 90 03/17/18 12:00 97.2 91 18 146/94 (111) 94 03/17/18 09:00 Room Air 03/17/18 08:00 97.4 109 20 171/87 (115) 95 03/17/18 04:24 127 03/17/18 04:21 108 03/17/18 04:00 97.5 64 24 129/91 (104) 94 03/17/18 04:00 129 03/17/18 01:33 131 03/17/18 00:00 97.3 72 24 135/80 (98) 95 03/16/18 23:08 97.7 03/16/18 21:00 Room Air 03/16/18 20:00 97.3 67 24 132/82 (99) 95 03/16/18 20:00 104 03/16/18 18:30 Nasal Cannula 2.0 03/16/18 16:39 97.7 97 18 136/82 (100) 95 03/16/18 16:06 97.8 103 17 115/70 96 Nasal Cannula 2.0 28 03/16/18 15:28 97.8 101 15 120/75 96 Nasal Cannula 2.0 Intake and Output 03/16/18 03/17/18 19:00 07:00 Intake Total 120 ml 120 ml Output Total 400 ml Balance -280 ml 120 ml Intake Oral 120 ml 120 ml Output Urine Total 400 ml # Voids 1 4 Laboratory Tests Test 03/16/18 20:00 03/17/18 06:40 White Blood Count 10.3 K/UL (4.8-10.8) 11.3 K/UL (4.8-10.8) H Red Blood Count 3.91 M/UL (4.70-6.10) L 3.88 M/UL (4.70-6.10) L Hemoglobin 10.6 G/DL (14.2-18.0) L 10.7 G/DL (14.2-18.0) L Hematocrit 34.3 % (42.0-52.0) L 33.7 % (42.0-52.0) L Mean Corpuscular Volume 88 FL (80-99) 87 FL (80-99) Mean Corpuscular Hemoglobin 27.1 PG (27.0-31.0) 27.4 PG (27.0-31.0) Mean Corpuscular Hemoglobin Concent 31.0 G/DL (32.0-36.0) L 31.6 G/DL (32.0-36.0) L Red Cell Distribution Width 21.8 % (11.6-14.8) H 22.2 % (11.6-14.8) H Platelet Count 262 K/UL (150-450) 272 K/UL (150-450) Mean Platelet Volume 6.8 FL (6.5-10.1) 6.5 FL (6.5-10.1) Neutrophils (%) (Auto) 53.1 % (45.0-75.0) 59.8 % (45.0-75.0) Lymphocytes (%) (Auto) 19.4 % (20.0-45.0) L 15.8 % (20.0-45.0) L Monocytes (%) (Auto) 17.6 % (1.0-10.0) H 15.8 % (1.0-10.0) H Eosinophils (%) (Auto) 7.9 % (0.0-3.0) H 7.2 % (0.0-3.0) H Basophils (%) (Auto) 2.1 % (0.0-2.0) H 1.5 % (0.0-2.0) Reticulocyte Count 1.6 % (0.0-2.0) Prothrombin Time 10.7 SEC (9.30-11.50) Prothromb Time International Ratio 1.0 (0.9-1.1) Activated Partial Thromboplast Time 31 SEC (23-33) Sodium Level 142 MMOL/L (136-145) Potassium Level 4.0 MMOL/L (3.5-5.1) Chloride Level 107 MMOL/L (98-107) Carbon Dioxide Level 28 MMOL/L (21-32) Anion Gap 8 mmol/L (5-15) Blood Urea Nitrogen 13 mg/dL (7-18) Creatinine 1.0 MG/DL (0.55-1.30) Estimat Glomerular Filtration Rate mL/min (>60) Glucose Level 88 MG/DL (74-106) Calcium Level 8.6 MG/DL (8.5-10.1) Iron Level 50 ug/dL (50-175) Total Iron Binding Capacity 211 ug/dL (250-450) L Percent Iron Saturation 24 % (15-50) Unsaturated Iron Binding 161 ug/dL (112-346) Ferritin 50 NG/ML (8-388) Total Bilirubin 0.3 MG/DL (0.2-1.0) Aspartate Amino Transf (AST/SGOT) 18 U/L (15-37) Alanine Aminotransferase (ALT/SGPT) 14 U/L (12-78) Alkaline Phosphatase 110 U/L (46-116) Total Protein 6.7 G/DL (6.4-8.2) Albumin 3.0 G/DL (3.4-5.0) L Globulin 3.7 g/dL Albumin/Globulin Ratio 0.8 (1.0-2.7) L Carcinoembryonic Antigen Pending Vitamin B12 Level 535 PG/ML (193-986) Folate 12.4 NG/ML (8.6-58.9) Thyroid Stimulating Hormone (TSH) 49.435 uiU/mL (0.358-3.740) Free Thyroxine 0.37 NG/DL (0.76-1.46) L Height (Feet): 5 Height (Inches): 9.00 Weight (Pounds): 180 General Appearance: WD/WN, no apparent distress, alert Cardiovascular: normal rate Respiratory/Chest: normal breath sounds, no respiratory distress Abdominal Exam: normal bowel sounds, non tender, soft Extremities: normal range of motion, non-tender Kristal Herman NP Mar 17, 2018 15:20
[2018-03-17 16:00] VITALS: BP 141/91
[2018-03-17] MEDS ORDERED: Magnesium Citrate Liq Btl ORAL ONE (16:00)
[2018-03-17] MEDS ORDERED: Polyethylene Glycol 238gm bottle ORAL ONE (16:00)
[2018-03-17] MEDS ORDERED: Bisacodyl EC 5mg tab ORAL SCH (16:00)
--- NOTE | 2018-03-17 18:01 | Infectious Diseases Prog Note ---
Assessment/Plan Problems: (1) Leukocytosis Assessment & Plan: rule out sepsis , will start ceftriaxone and metronidazole , and send blood culture x2 (2) UTI (urinary tract infection) Assessment & Plan: will start ceftriaxone pending urine culture (3) Gastrointestinal hemorrhage Assessment & Plan: unclear source, GI and general surgery are following , monitor H/H , transfuse as needed (4) COPD (chronic obstructive pulmonary disease) Assessment & Plan: continue inhalers, antibiotics and oxygen as needed (5) MRSA colonization Assessment & Plan: keep in contact isolation, will start Bactroban intranasally for 5 days Subjective Allergies: Coded Allergies: No Known Allergies (Unverified , 03/16/18) Objective Vital Signs Last 24 Hour Vital Signs Date Time Temp Pulse Resp B/P (MAP) Pulse Ox O2 Delivery O2 Flow Rate FiO2 03/17/18 12:00 90 03/17/18 12:00 97.2 91 18 146/94 (111) 94 03/17/18 09:00 Room Air 03/17/18 08:00 97.4 109 20 171/87 (115) 95 03/17/18 04:24 127 03/17/18 04:21 108 03/17/18 04:00 97.5 64 24 129/91 (104) 94 03/17/18 04:00 129 03/17/18 01:33 131 03/17/18 00:00 97.3 72 24 135/80 (98) 95 03/16/18 23:08 97.7 03/16/18 21:00 Room Air 03/16/18 20:00 97.3 67 24 132/82 (99) 95 03/16/18 20:00 104 03/16/18 18:30 Nasal Cannula 2.0 Height (Feet): 5 Height (Inches): 9.00 Weight (Pounds): 180 Microbiology Date/Time Source Procedure Growth Status 03/16/18 14:41 Urine,Clean Catch Urine Culture - Preliminary NO GROWTH Resulted Laboratory Tests Test 03/16/18 20:00 03/17/18 06:40 White Blood Count 10.3 K/UL (4.8-10.8) 11.3 K/UL (4.8-10.8) H Red Blood Count 3.91 M/UL (4.70-6.10) L 3.88 M/UL (4.70-6.10) L Hemoglobin 10.6 G/DL (14.2-18.0) L 10.7 G/DL (14.2-18.0) L Hematocrit 34.3 % (42.0-52.0) L 33.7 % (42.0-52.0) L Mean Corpuscular Volume 88 FL (80-99) 87 FL (80-99) Mean Corpuscular Hemoglobin 27.1 PG (27.0-31.0) 27.4 PG (27.0-31.0) Mean Corpuscular Hemoglobin Concent 31.0 G/DL (32.0-36.0) L 31.6 G/DL (32.0-36.0) L Red Cell Distribution Width 21.8 % (11.6-14.8) H 22.2 % (11.6-14.8) H Platelet Count 262 K/UL (150-450) 272 K/UL (150-450) Mean Platelet Volume 6.8 FL (6.5-10.1) 6.5 FL (6.5-10.1) Neutrophils (%) (Auto) 53.1 % (45.0-75.0) 59.8 % (45.0-75.0) Lymphocytes (%) (Auto) 19.4 % (20.0-45.0) L 15.8 % (20.0-45.0) L Monocytes (%) (Auto) 17.6 % (1.0-10.0) H 15.8 % (1.0-10.0) H Eosinophils (%) (Auto) 7.9 % (0.0-3.0) H 7.2 % (0.0-3.0) H Basophils (%) (Auto) 2.1 % (0.0-2.0) H 1.5 % (0.0-2.0) Reticulocyte Count 1.6 % (0.0-2.0) Prothrombin Time 10.7 SEC (9.30-11.50) Prothromb Time International Ratio 1.0 (0.9-1.1) Activated Partial Thromboplast Time 31 SEC (23-33) Sodium Level 142 MMOL/L (136-145) Potassium Level 4.0 MMOL/L (3.5-5.1) Chloride Level 107 MMOL/L (98-107) Carbon Dioxide Level 28 MMOL/L (21-32) Anion Gap 8 mmol/L (5-15) Blood Urea Nitrogen 13 mg/dL (7-18) Creatinine 1.0 MG/DL (0.55-1.30) Estimat Glomerular Filtration Rate mL/min (>60) Glucose Level 88 MG/DL (74-106) Calcium Level 8.6 MG/DL (8.5-10.1) Iron Level 50 ug/dL (50-175) Total Iron Binding Capacity 211 ug/dL (250-450) L Percent Iron Saturation 24 % (15-50) Unsaturated Iron Binding 161 ug/dL (112-346) Ferritin 50 NG/ML (8-388) Total Bilirubin 0.3 MG/DL (0.2-1.0) Aspartate Amino Transf (AST/SGOT) 18 U/L (15-37) Alanine Aminotransferase (ALT/SGPT) 14 U/L (12-78) Alkaline Phosphatase 110 U/L (46-116) Total Protein 6.7 G/DL (6.4-8.2) Albumin 3.0 G/DL (3.4-5.0) L Globulin 3.7 g/dL Albumin/Globulin Ratio 0.8 (1.0-2.7) L Carcinoembryonic Antigen Pending Vitamin B12 Level 535 PG/ML (193-986) Folate 12.4 NG/ML (8.6-58.9) Thyroid Stimulating Hormone (TSH) 49.435 uiU/mL (0.358-3.740) Free Thyroxine 0.37 NG/DL (0.76-1.46) L Current Medications Medications (Trade) Dose Ordered Sig/Valeria Route PRN Reason Start Time Stop Time Status Last Admin Dose Admin Dextrose (Dextrose 50%) 25 ml Q30M PRN IV Hypoglycemia 03/16/18 17:43 04/15/18 17:42 Dextrose (Dextrose 50%) 50 ml Q30M PRN IV Hypoglycemia 03/16/18 17:42 04/15/18 17:41 Dextrose/Sodium Chloride 1,000 ml @ 75 mls/hr [id number] IV 03/17/18 10:30 04/15/18 10:29 03/17/18 11:43 Hydrocortisone (Anusol HC) 1 applic Q12HR RECTAL 03/16/18 21:00 04/15/18 20:59 03/17/18 09:02 Insulin Aspart (NovoLOG) BEFORE MEALS AND HS SUBQ 03/16/18 21:00 04/15/18 20:59 03/17/18 12:40 Lorazepam (Ativan 2mg/ml 1ml) 1 mg Q6H PRN IV For Anxiety 03/16/18 21:44 03/23/18 21:43 03/17/18 01:07 Morphine Sulfate (Morphine Sulfate) 2 mg Q4H PRN IVP For Pain 03/16/18 21:44 03/23/18 21:43 03/17/18 17:03 Pantoprazole (Protonix) 40 mg Q12HR IVP 03/16/18 21:00 04/15/18 20:59 03/17/18 09:02 Quetiapine Fumarate (SEROquel) 25 mg DAILY ORAL 03/17/18 09:00 04/16/18 08:59 03/17/18 09:02 Sodium Phosphate (Fleet's Sodium Phosl Enema) 133 ml ONCE RECTAL 03/17/18 23:00 03/18/18 00:00 Shreyas Flores M.D. Mar 17, 2018 18:01
[2018-03-17] MEDS: cefTRIAXone 2 GM in D5W 55 ML IVPB SCH (19:12)
--- NOTE | 2018-03-17 19:19 | NUR ---
HAND-OFF: Report given to NICOLE Jhaveri.
--- NOTE | 2018-03-17 19:20 | NUR ---
NURSE NOTES: Received pt from NICOLE Carcamo. Pt awake, alert, and complaining of pain. Bowel prep started. Pt tolerating liquids well. Bed in lowest position. Call light within reach. Will continue to monitor.
[2018-03-17 20:00] VITALS: BP 135/93
[2018-03-17] MEDS ORDERED: Fleet's Enema 133ml RECTAL SCH (23:00)
[2018-03-18] VITALS (9 sets, daily range): BP systolic 102–147; BP diastolic 50–103
[2018-03-18] MEDS: Morphine Sulfate 2mg/ml Inj IVP PRN ×2 (01:16→07:47)
[2018-03-18] MEDS: D5NS 1,000 ML IV SCH ×2 (01:16→13:33)
[2018-03-18] MEDS: NovoLOG Insulin Flexpen SUBQ SCH ×4 (05:31→21:00)
[2018-03-18 06:44] LABS: BASOPHILS % (AUTO) 1.5 % (0.0-2.0); EOSINOPHILS % (AUTO) 4.8 % (0.0-3.0); HEMATOCRIT 33.7 % (42.0-52.0); HEMOGLOBIN 10.8 G/DL (14.2-18.0); LYMPHOCYTES % (AUTO) 13.7 % (20.0-45.0); MEAN CORPUSCULAR VOLUME 87 FL (80-99); MONOCYTES % (AUTO) 16.9 % (1.0-10.0); NEUTROPHILS % (AUTO) 63.1 % (45.0-75.0); PLATELET COUNT 282 K/UL (150-450); RED CELL DISTRIBUTION WIDTH 21.7 % (11.6-14.8)
[2018-03-18 06:58] LABS: ANION GAP 7 mmol/L (5-15); BLOOD UREA NITROGEN 10 mg/dL (7-18); CALCIUM 8.6 MG/DL (8.5-10.1); CARBON DIOXIDE 28 MMOL/L (21-32); CHLORIDE 107 MMOL/L (98-107); POTASSIUM 3.9 MMOL/L (3.5-5.1); SODIUM 142 MMOL/L (136-145)
--- NOTE | 2018-03-18 07:51 | NUR ---
NURSE NOTES: Pt ate ladonna, called and let GI lab know. They rescheduled colonoscopy for late morning. Will continue to monitor
--- NOTE | 2018-03-18 07:55 | NUR ---
NURSE NOTES: Micro lab called and confirmed him positive for MRSA Nares. Made charge nurse aware. Will move to different room. Will continue to monitor.
--- NOTE | 2018-03-18 08:22 | NUR ---
RADIOLOGY: CXR COMPLETED 0810 HRS. NF
[2018-03-18] MEDS: Pantoprazole Inj IVP SCH (09:00)
[2018-03-18] MEDS ORDERED: LR 1000ml ONE (11:30)
[2018-03-18] MEDS ORDERED: Sterile Water Irrig 1000ml IRRIG ONE (11:30)
[2018-03-18] MEDS ORDERED: NS Irrig 1000ml ONE (11:30)
--- NOTE | 2018-03-18 11:41 | Anethesia Preoperative Eval ---
Anesthesia Pre-op PMH/ROS General Date of Evaluation: Mar 18, 2018 Anesthesiologist: Jacky ASA Score: ASA 3 Mallampati Score Class I : Soft palate, uvula, fauces, pillars visible Class II: Soft palate, uvula, fauces visible Class III: Soft palate, base of uvula visible Class IV: Only hard plate visible Mallampati Classification: Class II Surgeon: Destiny Diagnosis: GI bleed Surgical Procedure: Colonoscopy Anesthesia History: none Family History: no anesthesia problems Allergies: Coded Allergies: No Known Allergies (Unverified , 03/16/18) Medications: see eMAR Patient NPO?: Yes NPO Date: Mar 17, 2018 NPO Time: 22:00 Past Medical History Cardiovascular: Reports: HTN; Denies: CAD, OK, valve dz, arrhythmia, other Pulmonary: Reports: COPD; Denies: asthma, DYANA, other Gastrointestinal/Genitourinary: Reports: CRI; Denies: GERD, ESRD, other Neurologic/Psychiatric: Reports: other - schizophrenic; Denies: dementia, CVA, depression/anxiety, TIA Endocrine: Reports: DM; Denies: hypothyroidism, steroids, other HEENT: Denies: cataract (L), cataract (R), glaucoma, AUGUSTINE (L), AUGUSTINE (R), other Hematology/Immune: Denies: anemia, DVT, bleeding disorder, other Musculoskeletal/Integumentary: Reports: other - prostate CAncer; Denies: OA, RA, DJD, DDD, edema PSxH Narrative: Denies Anesthesia Pre-op Phys. Exam Physician Exam Last Vital Signs Date Time Temp Pulse Resp B/P (MAP) Pulse Ox O2 Delivery O2 Flow Rate FiO2 03/18/18 09:00 Room Air 03/18/18 08:00 97.8 75 20 115/75 (88) 98 03/16/18 18:30 2.0 03/16/18 16:06 28 Constitutional: NAD Cardiovascular: RRR Respiratory: CTA Airway Exam Mallampati Score: Class II MO: limited ROM: limited Anesthesia Pre-op A/P Labs Hematology Test 03/18/18 06:00 White Blood Count 12.0 K/UL (4.8-10.8) H Red Blood Count 3.90 M/UL (4.70-6.10) L Hemoglobin 10.8 G/DL (14.2-18.0) L Hematocrit 33.7 % (42.0-52.0) L Mean Corpuscular Volume 87 FL (80-99) Mean Corpuscular Hemoglobin 27.8 PG (27.0-31.0) Mean Corpuscular Hemoglobin Concent 32.1 G/DL (32.0-36.0) Red Cell Distribution Width 21.7 % (11.6-14.8) H Platelet Count 282 K/UL (150-450) Mean Platelet Volume 6.7 FL (6.5-10.1) Neutrophils (%) (Auto) 63.1 % (45.0-75.0) Lymphocytes (%) (Auto) 13.7 % (20.0-45.0) L Monocytes (%) (Auto) 16.9 % (1.0-10.0) H Eosinophils (%) (Auto) 4.8 % (0.0-3.0) H Basophils (%) (Auto) 1.5 % (0.0-2.0) Coagulation Test 03/18/18 06:00 Prothrombin Time 10.9 SEC (9.30-11.50) Prothromb Time International Ratio 1.0 (0.9-1.1) Activated Partial Thromboplast Time 33 SEC (23-33) Chemistry Test 03/18/18 06:00 Sodium Level 142 MMOL/L (136-145) Potassium Level 3.9 MMOL/L (3.5-5.1) Chloride Level 107 MMOL/L (98-107) Carbon Dioxide Level 28 MMOL/L (21-32) Anion Gap 7 mmol/L (5-15) Blood Urea Nitrogen 10 mg/dL (7-18) Creatinine 1.0 MG/DL (0.55-1.30) Estimat Glomerular Filtration Rate mL/min (>60) Glucose Level 103 MG/DL (74-106) Calcium Level 8.6 MG/DL (8.5-10.1) Magnesium Level 2.0 MG/DL (1.8-2.4) Studies Pre-op Studies: EKG - sr Risk Assessment & Plan Assessment: ASA II Plan: MAC Status Change Before Surgery: No Pre-Antibiotics Drug: N/A Apple Schroeder MD Mar 18, 2018 11:41
[2018-03-18] MEDS ORDERED: LORazepam Inj 2mg/ml 1ml IV PRN (11:45)
[2018-03-18] MEDS ORDERED: DiphenhydrAMINE 50mg/ml Inj IVP PRN (11:45)
[2018-03-18] MEDS ORDERED: Midazolam 2mg/2ml Inj IVP PRN (11:45)
--- NOTE | 2018-03-18 11:56 | Pre-Procedure Note/Attestation ---
Pre-Procedure Note/Attestation Complete Prior to Procedure Planned Procedure: not applicable Procedure Narrative: colonoscopy Indications for Procedure Pre-Operative Diagnosis: rectal bleed Attestation I attest that I discussed the nature of the procedure; its benefits; risks and complications; and alternatives (and the risks and benefits of such alternatives ), prior to the procedure, with the patient (or the patient's legal office services representative). I attest that, if there was a reasonable possibility of needing a blood transfusion, the patient (or the patient's legal office services representative) was given the [facility] standardized written summary, pursuant to the [place] Blood Safety Act ([place] Health and Safety Code # 1645, as amended). I attest that I re-evaluated the patient just prior to the surgery and that there has been no change in the patient's H&P, except as documented below: Hitesh Dixon MD Mar 18, 2018 11:56
[2018-03-18] MEDS ORDERED: Propofol 200mg/20ml IV ONE (12:00)
[2018-03-18] MEDS ORDERED: Lidocaine 1% MPF 10mg/ml 5ml ONE (12:00)
--- NOTE | 2018-03-18 12:02 | General Progress Note ---
Assessment/Plan Problem List: (1) LGI bleed ICD Codes: K92.2 - Gastrointestinal hemorrhage, unspecified SNOMED: 22423993 (2) Gastrointestinal hemorrhage ICD Codes: K92.2 - Gastrointestinal hemorrhage, unspecified SNOMED: 51598998 (3) Psychosis ICD Codes: F29 - Unspecified psychosis not due to a substance or known physiological condition SNOMED: 68685891 (4) Anemia ICD Codes: D64.9 - Anemia, unspecified SNOMED: 081062060 (5) COPD (chronic obstructive pulmonary disease) ICD Codes: J44.9 - Chronic obstructive pulmonary disease, unspecified SNOMED: 43273659 Assessment/Plan plan colonoscopy for today Subjective ROS Limited/Unobtainable: Yes Allergies: Coded Allergies: No Known Allergies (Unverified , 03/16/18) Objective Last 24 Hour Vital Signs Date Time Temp Pulse Resp B/P (MAP) Pulse Ox O2 Delivery O2 Flow Rate FiO2 03/18/18 09:00 Room Air 03/18/18 08:00 97.8 75 20 115/75 (88) 98 03/18/18 08:00 107 03/18/18 04:00 96.6 89 18 143/88 (106) 95 03/18/18 04:00 91 03/18/18 00:00 122 03/18/18 00:00 97.7 88 19 147/91 (109) 93 03/17/18 21:00 Room Air 03/17/18 20:00 97.7 102 19 135/93 (107) 96 03/17/18 16:00 100 03/17/18 16:00 97.3 89 20 141/91 (108) 95 03/17/18 12:00 90 03/17/18 12:00 97.2 91 18 146/94 (111) 94 Intake and Output 03/17/18 03/18/18 18:59 06:59 Intake Total 360 ml Balance 360 ml Intake Oral 360 ml # Voids 3 2 # Bowel Movements 3 Laboratory Tests 03/18/18 06:00: White Blood Count 12.0H, Red Blood Count 3.90L, Hemoglobin 10.8L, Hematocrit 33.7L, Mean Corpuscular Volume 87, Mean Corpuscular Hemoglobin 27.8, Mean Corpuscular Hemoglobin Concent 32.1, Red Cell Distribution Width 21.7H, Platelet Count 282, Mean Platelet Volume 6.7, Neutrophils (%) (Auto) 63.1, Lymphocytes (%) (Auto) 13.7L, Monocytes (%) (Auto) 16.9H, Eosinophils (%) (Auto ) 4.8H, Basophils (%) (Auto) 1.5, Prothrombin Time 10.9, Prothromb Time International Ratio 1.0, Activated Partial Thromboplast Time 33, Sodium Level 142, Potassium Level 3.9, Chloride Level 107, Carbon Dioxide Level 28, Anion Gap 7, Blood Urea Nitrogen 10, Creatinine 1.0, Estimat Glomerular Filtration Rate , Glucose Level 103, Calcium Level 8.6, Magnesium Level 2.0 Height (Feet): 5 Height (Inches): 9.00 Weight (Pounds): 180 General Appearance: no apparent distress EENT: normal ENT inspection Neck: supple Cardiovascular: normal rate Respiratory/Chest: decreased breath sounds Abdomen: normal bowel sounds, non tender, soft Extremities: non-tender Hitesh Dixon MD Mar 18, 2018 12:02
--- NOTE | 2018-03-18 12:03 | Surgery Progress Note ---
Surgery Progress Note Subjective Additional Comments no acute events. leukocytosis 12k. electrolytes okay. no n/v/f/c. pending GI scope today Objective Last 24 Hour Vital Signs Date Time Temp Pulse Resp B/P (MAP) Pulse Ox O2 Delivery O2 Flow Rate FiO2 03/18/18 09:00 Room Air 03/18/18 08:00 97.8 75 20 115/75 (88) 98 03/18/18 08:00 107 03/18/18 04:00 96.6 89 18 143/88 (106) 95 03/18/18 04:00 91 03/18/18 00:00 122 03/18/18 00:00 97.7 88 19 147/91 (109) 93 03/17/18 21:00 Room Air 03/17/18 20:00 97.7 102 19 135/93 (107) 96 03/17/18 16:00 100 03/17/18 16:00 97.3 89 20 141/91 (108) 95 I&O Intake and Output 03/17/18 03/18/18 18:59 06:59 Intake Total 360 ml Balance 360 ml Intake Oral 360 ml # Voids 3 2 # Bowel Movements 3 Drains: none Cardiovascular: RSR Respiratory: clear Abdomen: soft, distended, non-tender, present bowel sounds Extremities: no cyanosis Laboratory Tests Test 03/18/18 06:00 White Blood Count 12.0 K/UL (4.8-10.8) H Red Blood Count 3.90 M/UL (4.70-6.10) L Hemoglobin 10.8 G/DL (14.2-18.0) L Hematocrit 33.7 % (42.0-52.0) L Mean Corpuscular Volume 87 FL (80-99) Mean Corpuscular Hemoglobin 27.8 PG (27.0-31.0) Mean Corpuscular Hemoglobin Concent 32.1 G/DL (32.0-36.0) Red Cell Distribution Width 21.7 % (11.6-14.8) H Platelet Count 282 K/UL (150-450) Mean Platelet Volume 6.7 FL (6.5-10.1) Neutrophils (%) (Auto) 63.1 % (45.0-75.0) Lymphocytes (%) (Auto) 13.7 % (20.0-45.0) L Monocytes (%) (Auto) 16.9 % (1.0-10.0) H Eosinophils (%) (Auto) 4.8 % (0.0-3.0) H Basophils (%) (Auto) 1.5 % (0.0-2.0) Prothrombin Time 10.9 SEC (9.30-11.50) Prothromb Time International Ratio 1.0 (0.9-1.1) Activated Partial Thromboplast Time 33 SEC (23-33) Sodium Level 142 MMOL/L (136-145) Potassium Level 3.9 MMOL/L (3.5-5.1) Chloride Level 107 MMOL/L (98-107) Carbon Dioxide Level 28 MMOL/L (21-32) Anion Gap 7 mmol/L (5-15) Blood Urea Nitrogen 10 mg/dL (7-18) Creatinine 1.0 MG/DL (0.55-1.30) Estimat Glomerular Filtration Rate mL/min (>60) Glucose Level 103 MG/DL (74-106) Calcium Level 8.6 MG/DL (8.5-10.1) Magnesium Level 2.0 MG/DL (1.8-2.4) Plan Problems: (1) LGI bleed Assessment & Plan: 73 year old male with Acute GI bleed. H/H stable now. no n /v/f/c/. care dependant male from [facility] with multiple medical comorbidities. on ASA prior. -GI scope today - pending -trend H/H -blood products available if necessary -surgery available in case continues to bleed and requires surgical intervention thank you for allowing me to participate in patients care (2) Gastrointestinal hemorrhage Torres Jauregui Mar 18, 2018 12:03
[2018-03-18] MEDS ORDERED: NS 500ML IVPB ONE (12:04)
--- NOTE | 2018-03-18 12:13 | Diagnostic Imaging Report ---
Indication: Cough Technique: One view of the chest Comparison: 03/16/2018 Findings: Slightly improved inspiration on the current exam. The heart is mildly enlarged. Questionable minimal infiltrates at both lung bases are again noted. There is decreased interstitial congestion. There are numerous healed right rib fracture deformities Impression: Slightly decreased interstitial congestion, over 2 days. Otherwise stable findings as described
--- NOTE | 2018-03-18 12:15 | Immediate Post-Op Evaluation ---
Immediate Post-Op Evalulation Immediate Post-Op Evalulation Procedure: Colonoscpy Date of Evaluation: Mar 18, 2018 Time of Evaluation: 12:36 IV Fluids: 150 Blood Products: 0 Estimated Blood Loss: 0 Urinary Output: 0 Blood Pressure Systolic: 108 Blood Pressure Diastolic: 50 Pulse Rate: 79 Respiratory Rate: 16 O2 Sat by Pulse Oximetry: 99 Temperature (Fahrenheit): 97.4 Pain Score (1-10): 0 Nausea: No Vomiting: No Complications 0 Patient Status: awake, reacts, patent, none Hydration Status: adequate Drug: N/A Apple Schroeder MD Mar 18, 2018 12:15
[2018-03-18 12:18] LABS: BASOPHILS % (AUTO) 1.4 % (0.0-2.0); EOSINOPHILS % (AUTO) 4.3 % (0.0-3.0); HEMATOCRIT 34.4 % (42.0-52.0); HEMOGLOBIN 10.8 G/DL (14.2-18.0); LYMPHOCYTES % (AUTO) 13.4 % (20.0-45.0); MEAN CORPUSCULAR VOLUME 87 FL (80-99); PLATELET COUNT 261 K/UL (150-450); RED BLOOD COUNT 3.96 M/UL (4.70-6.10); RED CELL DISTRIBUTION WIDTH 21.6 % (11.6-14.8)
--- NOTE | 2018-03-18 12:29 | Endoscopy Procedure Note ---
Endoscopy Procedure Note General Indication for Procedure: rectal bleed Procedures Performed: colonoscopy Operative Findings/Diagnosis: rectal ulcer, 2 colon polyps, hemorrhoids Specimen: yes Pt Tolerated Procedure Well: Yes Estimated Blood Loss: none Anesthesia Anesthesiologist: lynn Anesthesia: MAC Inserted Devices Implant(s) used?: No Quality Quality of Bowel Preparation: Fair Was there any complications?: No GI Core Measures 50 yrs or older w/o bx or poly: Not Applicable 10yrs. F/U not recommended: Not Applicable Hitesh Dixon MD Mar 18, 2018 12:29
--- NOTE | 2018-03-18 12:35 | 48 Hour Post Anesthesia Eval ---
Post Anesthesia Evaluation Procedure: Colonoscpy Date of Evaluation: Mar 18, 2018 Airway: patent Nausea: No Vomiting: No Pain Intensity: 0 Hydration Status: adequate Cardiopulmonary Status: at baseline Mental Status/LOC: patient returned to baseline Post-Anesthesia Complications: 0 Follow-up care needed: N/A - further care as per priry team Apple Schroeder MD Mar 18, 2018 12:35
--- NOTE | 2018-03-18 12:43 | NUR ---
HAND-OFF: Report given to NICOLE Spence. Pt stable
--- NOTE | 2018-03-18 12:44 | NUR ---
NURSE NOTES: Received report from NICOLE Jhaveri. Patient in semi-chamorro position in bed, had his lunch. Patient is agitated and keep asking for help. IV site , patent and intact. Bed at lowest position, with two side rails up. call light and bed side table within reach. Will continue to monitor and follow plan of care.
--- NOTE | 2018-03-18 12:55 | NUR ---
NURSE NOTES: Patient received after colonoscopy, Report given by NICOLE Rutherford. Patient in stable condition.
--- NOTE | 2018-03-18 14:03 | Infectious Diseases Prog Note ---
Assessment/Plan Problems: (1) Leukocytosis Assessment & Plan: rule out sepsis , continue ceftriaxone and metronidazole empirically pending blood culture x2 and GI eval (2) UTI (urinary tract infection) Assessment & Plan: continue ceftriaxone pending urine culture (3) Gastrointestinal hemorrhage Assessment & Plan: unclear source, GI and general surgery are following , monitor H/H , transfuse as needed (4) COPD (chronic obstructive pulmonary disease) Assessment & Plan: continue inhalers, antibiotics and oxygen as needed (5) MRSA colonization Assessment & Plan: keep in contact isolation, will start Bactroban intranasally for 5 days Subjective Constitutional: Reports: no symptoms HEENT: Reports: no symptoms Respiratory: Reports: no symptoms Breasts: Reports: no symptoms Cardiovascular: Reports: no symptoms Gastrointestinal/Abdominal: Reports: no symptoms Genitourinary: Reports: no symptoms Neurologic: Reports: no symptoms Psychiatric: Reports: no symptoms Skin: Reports: no symptoms Endocrine: Reports: no symptoms Hematologic: Reports: no symptoms Musculoskeletal: Reports: no symptoms Allergies: Coded Allergies: No Known Allergies (Unverified , 03/16/18) Objective Vital Signs Last 24 Hour Vital Signs Date Time Temp Pulse Resp B/P (MAP) Pulse Ox O2 Delivery O2 Flow Rate FiO2 03/18/18 12:50 97.2 86 22 127/51 98 Nasal Cannula 3 03/18/18 12:40 78 22 102/68 96 Nasal Cannula 3 03/18/18 12:35 79 16 99 03/18/18 12:31 97.0 85 24 108/50 100 Simple Mask 6 03/18/18 09:00 Room Air 03/18/18 08:00 97.8 75 20 115/75 (88) 98 03/18/18 08:00 107 03/18/18 04:00 96.6 89 18 143/88 (106) 95 03/18/18 04:00 91 03/18/18 00:00 122 03/18/18 00:00 97.7 88 19 147/91 (109) 93 03/17/18 21:00 Room Air 03/17/18 20:00 97.7 102 19 135/93 (107) 96 03/17/18 16:00 100 03/17/18 16:00 97.3 89 20 141/91 (108) 95 Height (Feet): 5 Height (Inches): 9.00 Weight (Pounds): 180 General Appearance: WD/WN, no acute distress HEENT: normocephalic, atraumatic, anicteric, mucous membranes moist, PERRL Respiratory/Chest: chest wall non-tender, normal breath sounds, no respiratory distress, no accessory muscle use, crackles/rales Cardiovascular: normal peripheral pulses, normal rate, regular rhythm, no gallop/murmur, no JVD Abdomen: normal bowel sounds, soft, non tender, no organomegaly, no mass, no scars Genitourinary: normal external genitalia Extremities: no cyanosis, no clubbing Skin: no rash, no lesions, no ulcers Neurologic/Psychiatric: alert, responsive Lymphatic: no neck adenopathy, no groin adenopathy Musculoskeletal: normal muscle bulk, no effusion Microbiology Date/Time Source Procedure Growth Status 03/16/18 14:10 Nasal Nares MRSA Culture - Final Staphylococcus Aureus - Mrsa Complete 03/16/18 14:41 Urine,Clean Catch Urine Culture - Preliminary NO GROWTH AFTER 24 HOURS Resulted 03/16/18 14:10 Rectum VRE Culture - Final NO VANCOMYCIN RESISTANT ENTEROCOCCUS ... Complete Laboratory Tests Test 03/18/18 06:00 03/18/18 12:00 White Blood Count 12.0 K/UL (4.8-10.8) H 12.0 K/UL (4.8-10.8) H Red Blood Count 3.90 M/UL (4.70-6.10) L 3.96 M/UL (4.70-6.10) L Hemoglobin 10.8 G/DL (14.2-18.0) L 10.8 G/DL (14.2-18.0) L Hematocrit 33.7 % (42.0-52.0) L 34.4 % (42.0-52.0) L Mean Corpuscular Volume 87 FL (80-99) 87 FL (80-99) Mean Corpuscular Hemoglobin 27.8 PG (27.0-31.0) 27.4 PG (27.0-31.0) Mean Corpuscular Hemoglobin Concent 32.1 G/DL (32.0-36.0) 31.5 G/DL (32.0-36.0) L Red Cell Distribution Width 21.7 % (11.6-14.8) H 21.6 % (11.6-14.8) H Platelet Count 282 K/UL (150-450) 261 K/UL (150-450) Mean Platelet Volume 6.7 FL (6.5-10.1) 7.0 FL (6.5-10.1) Neutrophils (%) (Auto) 63.1 % (45.0-75.0) 64.0 % (45.0-75.0) Lymphocytes (%) (Auto) 13.7 % (20.0-45.0) L 13.4 % (20.0-45.0) L Monocytes (%) (Auto) 16.9 % (1.0-10.0) H 17.0 % (1.0-10.0) H Eosinophils (%) (Auto) 4.8 % (0.0-3.0) H 4.3 % (0.0-3.0) H Basophils (%) (Auto) 1.5 % (0.0-2.0) 1.4 % (0.0-2.0) Prothrombin Time 10.9 SEC (9.30-11.50) Prothromb Time International Ratio 1.0 (0.9-1.1) Activated Partial Thromboplast Time 33 SEC (23-33) Sodium Level 142 MMOL/L (136-145) Potassium Level 3.9 MMOL/L (3.5-5.1) Chloride Level 107 MMOL/L (98-107) Carbon Dioxide Level 28 MMOL/L (21-32) Anion Gap 7 mmol/L (5-15) Blood Urea Nitrogen 10 mg/dL (7-18) Creatinine 1.0 MG/DL (0.55-1.30) Estimat Glomerular Filtration Rate mL/min (>60) Glucose Level 103 MG/DL (74-106) Calcium Level 8.6 MG/DL (8.5-10.1) Magnesium Level 2.0 MG/DL (1.8-2.4) Current Medications Medications (Trade) Dose Ordered Sig/Valeria Route PRN Reason Start Time Stop Time Status Last Admin Dose Admin Acetaminophen (Tylenol) 650 mg Q4H PRN ORAL Mild Pain (Pain Scale 1-3) 03/18/18 11:45 03/18/18 18:00 Ceftriaxone Sodium 2 gm/ Dextrose 55 ml @ 110 mls/hr Q24H IVPB 2/10/19 18:30 03/24/18 18:29 03/17/18 19:12 Dextrose (Dextrose 50%) 25 ml Q30M PRN IV Hypoglycemia 03/16/18 17:43 04/15/18 17:42 Dextrose (Dextrose 50%) 50 ml Q30M PRN IV Hypoglycemia 03/16/18 17:42 04/15/18 17:41 Dextrose/Sodium Chloride 1,000 ml @ 75 mls/hr [id number] IV 03/17/18 10:30 04/15/18 10:29 03/18/18 13:33 Diphenhydramine HCl (Benadryl) 25 mg Q15M PRN IVP Itching 03/18/18 11:45 03/18/18 18:00 Hydralazine HCl (Apresoline) 5 mg Q30M PRN IV SBP>160 OR___/DBP>90 OR___ 03/18/18 11:45 03/18/18 18:00 Hydrocortisone (Anusol HC) 1 applic Q12HR RECTAL 03/16/18 21:00 04/15/18 20:59 03/17/18 09:02 Insulin Aspart (NovoLOG) BEFORE MEALS AND HS SUBQ 03/16/18 21:00 04/15/18 20:59 03/17/18 12:40 Lorazepam (Ativan 2mg/ml 1ml) 1 mg Q15M PRN IV For Anxiety 03/18/18 11:45 03/18/18 18:00 Lorazepam (Ativan 2mg/ml 1ml) 1 mg Q6H PRN IV For Anxiety 03/16/18 21:44 03/23/18 21:43 03/17/18 01:07 Metronidazole 100 ml @ 100 mls/hr Q8HR IVPB 03/17/18 22:00 03/24/18 21:59 03/18/18 05:31 Midazolam HCl (Versed 2mg/2ml vial) 1 mg Q15M PRN IVP For Anxiety 03/18/18 11:45 03/18/18 18:00 Morphine Sulfate (Morphine Sulfate) 2 mg Q4H PRN IVP For Pain 03/16/18 21:44 03/23/18 21:43 03/18/18 07:47 Ondansetron HCl (Zofran) 4 mg Q1H PRN IVP Nausea & Vomiting 03/18/18 11:45 03/18/18 18:00 Pantoprazole (Protonix) 40 mg Q12HR IVP 03/16/18 21:00 04/15/18 20:59 03/17/18 20:52 Quetiapine Fumarate (SEROquel) 25 mg DAILY ORAL 03/17/18 09:00 04/16/18 08:59 03/17/18 09:02 Shreyas Flores M.D. Mar 18, 2018 14:03
--- NOTE | 2018-03-18 15:30 | Procedure Note ---
DATE OF PROCEDURE: 03/18/2018 SURGEON: Hitesh Dixon M.D. PROCEDURE: Colonoscopy with snare polypectomy and biopsy. ANESTHESIOLOGIST: Per Dr. Rico. INSTRUMENT: Olympus adult flexible colonoscope. INDICATION: Rectal bleeding. REASON FOR PROCEDURE: The procedure, risks, benefits, and possible consequences, including hemorrhage, aspiration, perforation and infection, and alternative treatments, were explained to the patient/legal guardian by Dr. Hitesh Dixon and the patient/legal guardian understood and accepted these risks. DESCRIPTION OF PROCEDURE: After informed consent was obtained and the patient was adequately sedated, first rectal exam was performed, which was normal. Then, the scope was advanced from rectum into the anastomosis. It seems that that patient has a right hemicolectomy. Quality of prep was fair. The patient had one polyp at the anastomosis, pedunculated, measured roughly about 7 mm, removed with the hot snare polypectomy technique. The patient had another diminutive polyp in the sigmoid, removed with the cold biopsy forceps technique. There was an area of the ulceration in the rectum, nonspecific, unusual looking ulceration in the rectum. This area measured roughly about maybe 1 to 1.5 cm in length. Biopsy from this ulceration was performed. The patient also has evidence of moderate diverticulosis in the left colon. Retroflexion of rectum showed evidence of internal hemorrhoids. SUMMARY OF FINDINGS: 1. History of right hemicolectomy with one polyp at the anastomosis, status post polypectomy. 2. Fair colonic prep. 3. Diverticulosis. 4. Sigmoid polyp removed with cold biopsy. 5. Rectal ulceration, status post biopsy. 6. Hemorrhoids. RECOMMENDATIONS: 1. Resume diet. 2. Follow labs. 3. Follow biopsy results. 4. If there is no recurrent bleeding, okay to discharge from gastrointestinal standpoint and follow up as an outpatient. I want to thank, Dr. Ortiz, for this kind referral. Hitesh Dixon M.D. DR: GRAEME JOB#: [id number] CC: Michele Ortiz M.D.
--- NOTE | 2018-03-18 16:00 | Consultation ---
DATE OF CONSULTATION: 03/18/2018 INFECTIOUS DISEASE CONSULTATION CONSULTING PHYSICIAN: Shreyas Flores M.D. REQUESTING PHYSICIAN: Michele Ortiz M.D. REASON FOR CONSULTATION: Leukocytosis, rule out sepsis and UTI. Recommendation for antibiotics treatment. HISTORY OF PRESENT ILLNESS: The patient is a 73-year-old male with past medical history significant for COPD, psych disorder, anemia, tobacco abuse at home, was sent to the emergency room at [facility] for rectal bleeding, which he had for several days. The patient has been on aspirin and NSAID for unknown duration, which might be a contributing factor to his GI bleeding. His hemoglobin and hematocrit was noticed to be trending down. So, he was evaluated by Gastroenterology team and was admitted to the hospital for further evaluation. The patient's white count was noticed to be elevated and his urinalysis was showing sign of infection. So, Infectious Disease consultation was requested for antibiotics treatment and further management. As of note, the patient has psych disorder, poor historian, cannot provide good history. History was mainly obtained from the medical record and nursing staff. REVIEW OF SYSTEMS: Unable to obtain, the patient is a poor historian. PAST MEDICAL HISTORY: Significant for COPD, tobacco abuse, anemia, and psychosis. PAST SURGICAL HISTORY: Not in the chart, unknown. SOCIAL HISTORY: [facility]. No recent drugs or alcohol, but he had tobacco use constantly. ALLERGIES: No known drug allergies. FAMILY HISTORY: Unable to obtain MEDICATIONS: He is on Tylenol, Ativan, Versed, Zofran, Apresoline, Benadryl, Seroquel, morphine, Ativan, Anusol, Protonix, and NovoLog. LABORATORY AND DIAGNOSTIC DATA: Laboratories showed white count of 11.3, hemoglobin of 10.7, and platelet count of 272. BUN of 13 and creatinine of 1. AST of 18, ALT of 14, and alkaline phosphatase of 110. Urinalysis showed wbc 2 to 4 and few yeast. Microbiology, nares swab positive for MRSA. Urine culture is pending. Imaging, chest x-ray on admission showed slightly decreased interstitial congestion, otherwise stable finding. PHYSICAL EXAMINATION: VITAL SIGNS: Temperature 97.2, pulse 91, respirations 18, blood pressure 146/94, and saturation 94% on room air. GENERAL: An elderly male, lying in bed, awake, alert, responsive, not in acute distress. HEENT: Normocephalic and atraumatic. Pupils reactive to light equally. Moist oral mucosa. No exudate or thrush. NECK: Supple. No lymphadenopathy. CARDIOVASCULAR: Regular rate and rhythm. No murmur or gallop. LUNGS: He had diminished breathing sounds at the bases with crackles. No wheezing or rhonchi. Normal breathing effort. ABDOMEN: Soft, obese, distended, and nontender. Normal bowel sounds. No hepatosplenomegaly or ascites. EXTREMITIES: No edema or cyanosis. SKIN: No rash or hives. GENITOURINARY: Normal genitourinary exam with no Fraire. ASSESSMENT/RECOMMENDATION: 1. Leukocytosis, rule out sepsis. We will start ceftriaxone and metronidazole empiric coverage for possible intra-abdominal infection and send blood culture x2. 2. UTI. We will start ceftriaxone. Pending urine culture results. 3. GI bleeding, unclear source. GI and Surgery are following. Monitor hemoglobin and hematocrit. Continue PPI, transfuse as needed. May need endoscopy. 4. COPD. Continue inhalers, antibiotics, and oxygen as needed. Thank you for the consult. ID will continue to follow. Please feel free to call with any question. Shreyas Flores M.D. DR: ERIN JOB#: [id number] CC:
[2018-03-18] MEDS: cefTRIAXone 2 GM in D5W 55 ML IVPB SCH (17:55)
--- NOTE | 2018-03-18 18:11 | NUR ---
CASE MANAGEMENT: REVIEW SI: LOWER GI BLEED COLONOSCOPY w/BIOPSY & HOT POLYPECTOMY 03/18 T 97.2 HR 102 RR 25 BP 144/103 SAT 96% NC/3L WBC 12.0 H/H 10.8/34.4 IS: PROTONIX PO FLAGYL IV Q8HR CEFTRIAXONE IV Q24HR HYDROCORTISONE RECTAL Q12HR TELEMETRY UNIT STATUS DCP: PATIENT IS FROM [facility]
--- NOTE | 2018-03-18 18:27 | Consultation ---
History of Present Illness General Date patient seen: Mar 18, 2018 Chief Complaint: Gastrointestinal Bleed Referring physician: MONI Reason for Consultation: LGIB Present Illness Allergies: Coded Allergies: No Known Allergies (Unverified , 03/16/18) Medication History Scheduled Aspirin* (Aspir 81*), 81 MG ORAL DAILY, (Reported) Atorvastatin (Lipitor), 80 MG ORAL BEDTIME, (Reported) Quetiapine Fumarate* (Seroquel*), 25 MG ORAL DAILY, (Reported) Miscellaneous Medications Insulin Aspart (Novolog Flexpen), (Reported) Patient History Healthcare decision maker Resuscitation status Full Code Advanced Directive on File Physical Exam Last 24 Hour Vital Signs Date Time Temp Pulse Resp B/P (MAP) Pulse Ox O2 Delivery O2 Flow Rate FiO2 03/18/18 16:00 102 03/18/18 16:00 97.6 71 25 132/99 (110) 96 03/18/18 12:50 97.2 86 22 127/51 98 Nasal Cannula 3 03/18/18 12:40 78 22 102/68 96 Nasal Cannula 3 03/18/18 12:35 79 16 99 03/18/18 12:31 97.0 85 24 108/50 100 Simple Mask 6 03/18/18 12:00 97.7 113 25 144/103 (117) 92 03/18/18 12:00 102 03/18/18 09:00 Room Air 03/18/18 08:00 97.8 75 20 115/75 (88) 98 03/18/18 08:00 107 03/18/18 04:00 96.6 89 18 143/88 (106) 95 03/18/18 04:00 91 03/18/18 00:00 122 03/18/18 00:00 97.7 88 19 147/91 (109) 93 03/17/18 21:00 Room Air 03/17/18 20:00 97.7 102 19 135/93 (107) 96 Intake and Output 03/17/18 03/18/18 19:00 07:00 Intake Total 360 ml Balance 360 ml Intake Oral 360 ml # Voids 3 2 # Bowel Movements 3 Laboratory Tests Test 03/18/18 06:00 03/18/18 12:00 White Blood Count 12.0 K/UL (4.8-10.8) H 12.0 K/UL (4.8-10.8) H Red Blood Count 3.90 M/UL (4.70-6.10) L 3.96 M/UL (4.70-6.10) L Hemoglobin 10.8 G/DL (14.2-18.0) L 10.8 G/DL (14.2-18.0) L Hematocrit 33.7 % (42.0-52.0) L 34.4 % (42.0-52.0) L Mean Corpuscular Volume 87 FL (80-99) 87 FL (80-99) Mean Corpuscular Hemoglobin 27.8 PG (27.0-31.0) 27.4 PG (27.0-31.0) Mean Corpuscular Hemoglobin Concent 32.1 G/DL (32.0-36.0) 31.5 G/DL (32.0-36.0) L Red Cell Distribution Width 21.7 % (11.6-14.8) H 21.6 % (11.6-14.8) H Platelet Count 282 K/UL (150-450) 261 K/UL (150-450) Mean Platelet Volume 6.7 FL (6.5-10.1) 7.0 FL (6.5-10.1) Neutrophils (%) (Auto) 63.1 % (45.0-75.0) 64.0 % (45.0-75.0) Lymphocytes (%) (Auto) 13.7 % (20.0-45.0) L 13.4 % (20.0-45.0) L Monocytes (%) (Auto) 16.9 % (1.0-10.0) H 17.0 % (1.0-10.0) H Eosinophils (%) (Auto) 4.8 % (0.0-3.0) H 4.3 % (0.0-3.0) H Basophils (%) (Auto) 1.5 % (0.0-2.0) 1.4 % (0.0-2.0) Prothrombin Time 10.9 SEC (9.30-11.50) Prothromb Time International Ratio 1.0 (0.9-1.1) Activated Partial Thromboplast Time 33 SEC (23-33) Sodium Level 142 MMOL/L (136-145) Potassium Level 3.9 MMOL/L (3.5-5.1) Chloride Level 107 MMOL/L (98-107) Carbon Dioxide Level 28 MMOL/L (21-32) Anion Gap 7 mmol/L (5-15) Blood Urea Nitrogen 10 mg/dL (7-18) Creatinine 1.0 MG/DL (0.55-1.30) Estimat Glomerular Filtration Rate mL/min (>60) Glucose Level 103 MG/DL (74-106) Calcium Level 8.6 MG/DL (8.5-10.1) Magnesium Level 2.0 MG/DL (1.8-2.4) Height (Feet): 5 Height (Inches): 9.00 Weight (Pounds): 180 Medications Current Medications Medications (Trade) Dose Ordered Sig/Valeria Route PRN Reason Start Time Stop Time Status Last Admin Dose Admin Ceftriaxone Sodium 2 gm/ Dextrose 55 ml @ 110 mls/hr Q24H IVPB 03/17/18 18:30 03/24/18 18:29 03/18/18 17:55 Dextrose (Dextrose 50%) 25 ml Q30M PRN IV Hypoglycemia 03/16/18 17:43 04/15/18 17:42 Dextrose (Dextrose 50%) 50 ml Q30M PRN IV Hypoglycemia 03/16/18 17:42 04/15/18 17:41 Dextrose/Sodium Chloride 1,000 ml @ 75 mls/hr [id number] IV 03/17/18 10:30 04/15/18 10:29 03/18/18 13:33 Hydrocortisone (Anusol HC) 1 applic Q12HR RECTAL 03/16/18 21:00 04/15/18 20:59 03/17/18 09:02 Insulin Aspart (NovoLOG) BEFORE MEALS AND HS SUBQ 03/16/18 21:00 04/15/18 20:59 03/18/18 16:43 Iron Sucrose 100 mg/Sodium Chloride 60 ml @ 240 mls/hr BEDTIME IVPB 03/18/18 21:00 03/22/18 21:14 UNV Lorazepam (Ativan 2mg/ml 1ml) 1 mg Q6H PRN IV For Anxiety 03/16/18 21:44 03/23/18 21:43 03/17/18 01:07 Metronidazole 100 ml @ 100 mls/hr Q8HR IVPB 03/17/18 22:00 03/24/18 21:59 03/18/18 14:17 Morphine Sulfate (Morphine Sulfate) 2 mg Q4H PRN IVP For Pain 03/16/18 21:44 03/23/18 21:43 03/18/18 07:47 Mupirocin (Bactroban Oint) 1 applic THREE TIMES A DAY TOPIC 03/18/18 18:00 03/23/18 17:59 03/18/18 17:55 Pantoprazole (Protonix) 40 mg BIAC ORAL 03/18/18 16:45 04/17/18 16:44 03/18/18 16:55 Quetiapine Fumarate (SEROquel) 25 mg DAILY ORAL 03/17/18 09:00 04/16/18 08:59 03/17/18 09:02 Assessment/Plan Assessment/Plan Hematology consultation DATE OF CONSULTATION: 03/18/2018 CONSULTING PHYSICIAN: Christopher Steinberg M.D. REQUESTING PHYSICIAN: Michele Ortiz M.D. REASON FOR CONSULTATION: Gi bleed, anemia HISTORY OF PRESENT ILLNESS: 73-year-old male with past medical history significant for COPD, psych disorder , anemia, tobacc abuse at home, was sent to the emergency room at [facility] for rectal bleeding, which he had for several days. The patient has been on aspirin and NSAID for unknown duration, which might be a contributing factor to his GI bleeding. His hemoglobin and hematocrit was noticed to be trending down. So, he was evaluated by Gastroenterology team and was admitted to the hospital for further evaluation. The patient's white count was noticed to be elevated and his urinalysis was showing sign of infection. So , Infectious Disease consultation was requested for antibiotics treatment and further management. As of note, the patient has psych disorder, poor historian , cannot provide good history. History was mainly obtained from the medical record and nursing staff. Heme was consulted as well for anemia, colo completed today REVIEW OF SYSTEMS: Unable to obtain, the patient is a poor historian. PAST MEDICAL HISTORY: Significant for COPD, tobacco abuse, anemia, and psychosis. PAST SURGICAL HISTORY: Not in the chart, unknown. SOCIAL HISTORY: The patient lives at the intermediate facility. No recent drugs or alcohol, but he had tobacco use constantly. ALLERGIES: No known drug allergies. FAMILY HISTORY: Unable to obtain Laboratory Tests Test 03/18/18 06:00 03/18/18 12:00 White Blood Count 12.0 K/UL (4.8-10.8) H 12.0 K/UL (4.8-10.8) H Red Blood Count 3.90 M/UL (4.70-6.10) L 3.96 M/UL (4.70-6.10) L Hemoglobin 10.8 G/DL (14.2-18.0) L 10.8 G/DL (14.2-18.0) L Hematocrit 33.7 % (42.0-52.0) L 34.4 % (42.0-52.0) L Mean Corpuscular Volume 87 FL (80-99) 87 FL (80-99) Mean Corpuscular Hemoglobin 27.8 PG (27.0-31.0) 27.4 PG (27.0-31.0) Mean Corpuscular Hemoglobin Concent 32.1 G/DL (32.0-36.0) 31.5 G/DL (32.0-36.0) L Red Cell Distribution Width 21.7 % (11.6-14.8) H 21.6 % (11.6-14.8) H Platelet Count 282 K/UL (150-450) 261 K/UL (150-450) Mean Platelet Volume 6.7 FL (6.5-10.1) 7.0 FL (6.5-10.1) Neutrophils (%) (Auto) 63.1 % (45.0-75.0) 64.0 % (45.0-75.0) Lymphocytes (%) (Auto) 13.7 % (20.0-45.0) L 13.4 % (20.0-45.0) L Monocytes (%) (Auto) 16.9 % (1.0-10.0) H 17.0 % (1.0-10.0) H Eosinophils (%) (Auto) 4.8 % (0.0-3.0) H 4.3 % (0.0-3.0) H Basophils (%) (Auto) 1.5 % (0.0-2.0) 1.4 % (0.0-2.0) Prothrombin Time 10.9 SEC (9.30-11.50) Prothromb Time International Ratio 1.0 (0.9-1.1) Activated Partial Thromboplast Time 33 SEC (23-33) Sodium Level 142 MMOL/L (136-145) Potassium Level 3.9 MMOL/L (3.5-5.1) Chloride Level 107 MMOL/L (98-107) Carbon Dioxide Level 28 MMOL/L (21-32) Anion Gap 7 mmol/L (5-15) Blood Urea Nitrogen 10 mg/dL (7-18) Creatinine 1.0 MG/DL (0.55-1.30) Estimat Glomerular Filtration Rate mL/min (>60) Glucose Level 103 MG/DL (74-106) Calcium Level 8.6 MG/DL (8.5-10.1) Magnesium Level 2.0 MG/DL (1.8-2.4) MEDICATIONS: He is on Tylenol, Ativan, Versed, Zofran, Apresoline, Benadryl, Seroquel, morphine, Ativan, Anusol, Protonix, and NovoLog. Urinalysis showed wbc 2 to 4 and few yeast. Microbiology, nares swab positive for MRSA. Urine culture is pending. Imaging, chest x-ray on admission showed slightly decreased interstitial congestion, otherwise stable finding. PHYSICAL EXAMINATION: VITAL SIGNS: Temperature 97.2, pulse 91, respirations 18, blood pressure 146/94 , and saturation 94% on room air. GENERAL: An elderly male, lying in bed, awake, alert, responsive, not in acute distress. HEENT: Normocephalic and atraumatic. Pupils reactive to light equally. Moist oral mucosa. No exudate or thrush. NECK: Supple. No lymphadenopathy. CARDIOVASCULAR: Regular rate and rhythm. No murmur or gallop. LUNGS: He had diminished breathing sounds at the bases with crackles. No wheezing or rhonchi ABDOMEN: Soft, obese, distended, and nontender. Normal bowel sounds. No hepatosplenomegaly or ascites. EXTREMITIES: No edema or cyanosis. ASSESSMENT/RECOMMENDATION: #. Anemia due to GI bleeding, unclear source. GI and Surgery are following. --> s/p colo today and results are pending --> Monitor hemoglobin and hematocrit. ==> Continue PPI, transfuse as needed. May need endoscopy. --> on ppi , does not need octreotide #. Anemia of iron deficiency, ferritin is 50 --> started on iv iron x 5 doses #. Leukocytosis, rule out sepsis. We will start ceftriaxone and metronidazole empiric coverage for possible intra-abdominal infection and send blood culture x2. --> closely monitor for improvement --> smear has been ordered, no abnml lymphocytes noted --> does not need jak2 at this time #. UTI. We will start ceftriaxone. Pending urine culture results. ==> appreciate Id care #. COPD. Continue inhalers, antibiotics, and oxygen as needed. Thank you for the consult. Greatly appreciate consultation. Christopher Steinberg MD Mar 18, 2018 18:27
--- NOTE | 2018-03-18 19:28 | NUR ---
HAND-OFF: Report given to NICOLE Jhaveri.
--- NOTE | 2018-03-18 19:30 | NUR ---
NURSE NOTES: Received pt from NICOLE Bass. Pt awake, alert, and repeating the words "help me". Bed in lowest position. Bed alarm on. Call light within reach. Will continue to monitor.
[2018-03-18 20:11] LABS: BASOPHILS % (AUTO) 1.6 % (0.0-2.0); EOSINOPHILS % (AUTO) 3.6 % (0.0-3.0); HEMATOCRIT 32.9 % (42.0-52.0); HEMOGLOBIN 10.3 G/DL (14.2-18.0); LYMPHOCYTES % (AUTO) 10.9 % (20.0-45.0); MEAN CORPUSCULAR VOLUME 87 FL (80-99); MONOCYTES % (AUTO) 16.7 % (1.0-10.0); NEUTROPHILS % (AUTO) 67.3 % (45.0-75.0); PLATELET COUNT 257 K/UL (150-450); RED BLOOD COUNT 3.79 M/UL (4.70-6.10); RED CELL DISTRIBUTION WIDTH 21.5 % (11.6-14.8); WHITE BLOOD COUNT 14.1 K/UL (4.8-10.8)
[2018-03-18] MEDS: Iron Sucrose 100 MG in NS 55 ML IV SCH (21:54)
[2018-03-18] MEDS: LORazepam Inj 2mg/ml 1ml IV PRN (21:55)
[2018-03-19] VITALS: BP 135/92
[2018-03-19 04:00] VITALS: BP 160/99
[2018-03-19] MEDS: NovoLOG Insulin Flexpen SUBQ SCH ×4 (06:30→21:56)
[2018-03-19] MEDS: LORazepam Inj 2mg/ml 1ml IV PRN (06:31)
[2018-03-19] MEDS: D5NS 1,000 ML IV SCH ×2 (06:32→17:07)
--- NOTE | 2018-03-19 07:47 | NUR ---
HAND-OFF: Report given to NICOLE Odell. Pt stable.
[2018-03-19 08:00] VITALS: BP 154/114
--- NOTE | 2018-03-19 08:06 | NUR ---
NURSE NOTES: I received the patient awake and eating breakfast. Patient alert and oriented x3. Patient does not display any signs of distress or SOB. Bed in the lowest position and call light within reach. Patient educated about using the call light when he needs assistance. I will continue monitor the patient and implement care.
[2018-03-19 09:59] LABS: BASOPHILS % (AUTO) 1.5 % (0.0-2.0); EOSINOPHILS % (AUTO) 4.3 % (0.0-3.0); HEMATOCRIT 33.4 % (42.0-52.0); HEMOGLOBIN 10.7 G/DL (14.2-18.0); LYMPHOCYTES % (AUTO) 9.8 % (20.0-45.0); MEAN CORPUSCULAR VOLUME 87 FL (80-99); MONOCYTES % (AUTO) 15.9 % (1.0-10.0); NEUTROPHILS % (AUTO) 68.5 % (45.0-75.0); PLATELET COUNT 261 K/UL (150-450); RED BLOOD COUNT 3.85 M/UL (4.70-6.10); RED CELL DISTRIBUTION WIDTH 21.2 % (11.6-14.8); WHITE BLOOD COUNT 13.3 K/UL (4.8-10.8)
[2018-03-19 10:10] LABS: ANION GAP 6 mmol/L (5-15); BLOOD UREA NITROGEN 10 mg/dL (7-18); CALCIUM 8.3 MG/DL (8.5-10.1); CARBON DIOXIDE 29 MMOL/L (21-32); CHLORIDE 105 MMOL/L (98-107); POTASSIUM 3.7 MMOL/L (3.5-5.1); SODIUM 140 MMOL/L (136-145)
[2018-03-19 12:00] VITALS: BP 154/109
--- NOTE | 2018-03-19 12:37 | Surgery Progress Note ---
Surgery Progress Note Subjective Additional Comments s/p colonoscopy. polyp, hemorrhoid, and rectal ulcer noted. biopsy taken. no active bleeding. labs stable Objective Last 24 Hour Vital Signs Date Time Temp Pulse Resp B/P (MAP) Pulse Ox O2 Delivery O2 Flow Rate FiO2 03/19/18 09:00 Room Air 03/19/18 08:00 96.3 101 20 154/114 (127) 91 03/19/18 07:58 131 03/19/18 04:00 98.1 107 21 160/99 (119) 94 03/19/18 04:00 101 03/19/18 00:00 100 03/19/18 00:00 97.8 92 20 135/92 (106) 95 03/18/18 21:00 Room Air 03/18/18 20:00 97.4 89 21 137/94 (108) 95 03/18/18 16:00 102 03/18/18 16:00 97.6 71 25 132/99 (110) 96 03/18/18 12:50 97.2 86 22 127/51 98 Nasal Cannula 3 03/18/18 12:40 78 22 102/68 96 Nasal Cannula 3 I&O Intake and Output 03/18/18 03/19/18 18:59 06:59 Intake Total 200 ml 240 ml Output Total 0 ml Balance 200 ml 240 ml Intake Oral 240 ml IV Total 200 ml Estimated Blood Loss 0 ml # Voids 2 4 # Bowel Movements 1 Cardiovascular: RSR Respiratory: clear Abdomen: soft, non-tender, present bowel sounds, non-distended Extremities: no tenderness, no cyanosis Laboratory Tests Test 03/18/18 19:56 03/19/18 09:15 White Blood Count 14.1 K/UL (4.8-10.8) H 13.3 K/UL (4.8-10.8) H Red Blood Count 3.79 M/UL (4.70-6.10) L 3.85 M/UL (4.70-6.10) L Hemoglobin 10.3 G/DL (14.2-18.0) L 10.7 G/DL (14.2-18.0) L Hematocrit 32.9 % (42.0-52.0) L 33.4 % (42.0-52.0) L Mean Corpuscular Volume 87 FL (80-99) 87 FL (80-99) Mean Corpuscular Hemoglobin 27.2 PG (27.0-31.0) 27.7 PG (27.0-31.0) Mean Corpuscular Hemoglobin Concent 31.2 G/DL (32.0-36.0) L 32.0 G/DL (32.0-36.0) Red Cell Distribution Width 21.5 % (11.6-14.8) H 21.2 % (11.6-14.8) H Platelet Count 257 K/UL (150-450) 261 K/UL (150-450) Mean Platelet Volume 6.8 FL (6.5-10.1) 7.2 FL (6.5-10.1) Neutrophils (%) (Auto) 67.3 % (45.0-75.0) 68.5 % (45.0-75.0) Lymphocytes (%) (Auto) 10.9 % (20.0-45.0) L 9.8 % (20.0-45.0) L Monocytes (%) (Auto) 16.7 % (1.0-10.0) H 15.9 % (1.0-10.0) H Eosinophils (%) (Auto) 3.6 % (0.0-3.0) H 4.3 % (0.0-3.0) H Basophils (%) (Auto) 1.6 % (0.0-2.0) 1.5 % (0.0-2.0) Sodium Level 140 MMOL/L (136-145) Potassium Level 3.7 MMOL/L (3.5-5.1) Chloride Level 105 MMOL/L (98-107) Carbon Dioxide Level 29 MMOL/L (21-32) Anion Gap 6 mmol/L (5-15) Blood Urea Nitrogen 10 mg/dL (7-18) Creatinine 1.0 MG/DL (0.55-1.30) Estimat Glomerular Filtration Rate mL/min (>60) Glucose Level 105 MG/DL (74-106) Calcium Level 8.3 MG/DL (8.5-10.1) L Plan Problems: (1) LGI bleed Assessment & Plan: 73 year old male with Acute GI bleed. H/H stable now. no n /v/f/c/. care dependant male from correction with multiple medical comorbidities. on ASA prior. s/p colonoscopy. rectal ulcer, polyp at prior right narayan, and hemorrhoids noted. no active bleeding. biopsies taken labs stable tolerating diet -no acute surgical intervention planned. -diet as tolerated -trend labs -blood products available if necessary -surgery available in case continues to bleed and requires surgical intervention -okay to d/c from surgical standpoint thank you for allowing me to participate in patients care (2) Gastrointestinal hemorrhage Torres Jauregui Mar 19, 2018 12:37
--- NOTE | 2018-03-19 13:22 | GI Progress Note ---
Assessment/Plan Problems: (1) Acute hemorrhoid ICD Codes: K64.9 - Unspecified hemorrhoids SNOMED: 4433227, 21373636 (2) LGI bleed ICD Codes: K92.2 - Gastrointestinal hemorrhage, unspecified SNOMED: 03732247 (3) Gastrointestinal hemorrhage ICD Codes: K92.2 - Gastrointestinal hemorrhage, unspecified SNOMED: 43822692 (4) Anemia ICD Codes: D64.9 - Anemia, unspecified SNOMED: 842685172 Status: stable Status Narrative Discussed with Dr. Dixon. Assessment/Plan s/p EGD colonoscopy SUMMARY OF FINDINGS: 1. History of right hemicolectomy with one polyp at the anastomosis, status post polypectomy. 2. Fair colonic prep. 3. Diverticulosis. 4. Sigmoid polyp removed with cold biopsy. 5. Rectal ulceration, status post biopsy. 6. Hemorrhoids. RECOMMENDATIONS: 1. Resume diet. 2. Follow labs. 3. Follow biopsy results. 4. okay for DC per GI standpoint The patient was seen and examined at bedside and all new and available data was reviewed in the patients chart. I agree with the above findings, impression and plan. (Patient seen earlier today. Signature stamp does not reflect patient encounter time.). - Hitesh Dixon MD Subjective Gastrointestinal/Abdominal: Reports: no symptoms Objective Last 24 Hour Vital Signs Date Time Temp Pulse Resp B/P (MAP) Pulse Ox O2 Delivery O2 Flow Rate FiO2 03/19/18 12:00 96.5 103 20 154/109 (124) 93 03/19/18 09:00 Room Air 03/19/18 08:00 96.3 101 20 154/114 (127) 91 03/19/18 07:58 131 03/19/18 04:00 98.1 107 21 160/99 (119) 94 03/19/18 04:00 101 03/19/18 00:00 100 03/19/18 00:00 97.8 92 20 135/92 (106) 95 03/18/18 21:00 Room Air 03/18/18 20:00 97.4 89 21 137/94 (108) 95 03/18/18 16:00 102 03/18/18 16:00 97.6 71 25 132/99 (110) 96 Intake and Output 03/18/18 03/19/18 18:59 06:59 Intake Total 200 ml 240 ml Output Total 0 ml Balance 200 ml 240 ml Intake Oral 240 ml IV Total 200 ml Estimated Blood Loss 0 ml # Voids 2 4 # Bowel Movements 1 Laboratory Tests Test 03/18/18 19:56 03/19/18 09:15 03/19/18 13:00 White Blood Count 14.1 K/UL (4.8-10.8) H 13.3 K/UL (4.8-10.8) H Pending Red Blood Count 3.79 M/UL (4.70-6.10) L 3.85 M/UL (4.70-6.10) L Pending Hemoglobin 10.3 G/DL (14.2-18.0) L 10.7 G/DL (14.2-18.0) L Pending Hematocrit 32.9 % (42.0-52.0) L 33.4 % (42.0-52.0) L Pending Mean Corpuscular Volume 87 FL (80-99) 87 FL (80-99) Pending Mean Corpuscular Hemoglobin 27.2 PG (27.0-31.0) 27.7 PG (27.0-31.0) Pending Mean Corpuscular Hemoglobin Concent 31.2 G/DL (32.0-36.0) L 32.0 G/DL (32.0-36.0) Pending Red Cell Distribution Width 21.5 % (11.6-14.8) H 21.2 % (11.6-14.8) H Pending Platelet Count 257 K/UL (150-450) 261 K/UL (150-450) Pending Mean Platelet Volume 6.8 FL (6.5-10.1) 7.2 FL (6.5-10.1) Pending Neutrophils (%) (Auto) 67.3 % (45.0-75.0) 68.5 % (45.0-75.0) Pending Lymphocytes (%) (Auto) 10.9 % (20.0-45.0) L 9.8 % (20.0-45.0) L Pending Monocytes (%) (Auto) 16.7 % (1.0-10.0) H 15.9 % (1.0-10.0) H Pending Eosinophils (%) (Auto) 3.6 % (0.0-3.0) H 4.3 % (0.0-3.0) H Pending Basophils (%) (Auto) 1.6 % (0.0-2.0) 1.5 % (0.0-2.0) Pending Sodium Level 140 MMOL/L (136-145) Potassium Level 3.7 MMOL/L (3.5-5.1) Chloride Level 105 MMOL/L (98-107) Carbon Dioxide Level 29 MMOL/L (21-32) Anion Gap 6 mmol/L (5-15) Blood Urea Nitrogen 10 mg/dL (7-18) Creatinine 1.0 MG/DL (0.55-1.30) Estimat Glomerular Filtration Rate mL/min (>60) Glucose Level 105 MG/DL (74-106) Calcium Level 8.3 MG/DL (8.5-10.1) L Height (Feet): 5 Height (Inches): 9.00 Weight (Pounds): 180 General Appearance: WD/WN, no apparent distress, alert Cardiovascular: normal rate Respiratory/Chest: normal breath sounds, no respiratory distress Abdominal Exam: normal bowel sounds, non tender, soft Extremities: normal range of motion, non-tender Kristal Herman NP Mar 19, 2018 13:22
[2018-03-19 13:23] LABS: HEMOGLOBIN 10.4 G/DL (14.2-18.0); MEAN CORPUSCULAR VOLUME 86 FL (80-99); PLATELET COUNT 257 K/UL (150-450); RED BLOOD COUNT 3.82 M/UL (4.70-6.10); RED CELL DISTRIBUTION WIDTH 21.2 % (11.6-14.8); WHITE BLOOD COUNT 12.8 K/UL (4.8-10.8)
--- NOTE | 2018-03-19 13:47 | Nephrology Progress Note ---
Assessment/Plan Problem List: (1) COPD (chronic obstructive pulmonary disease) Assessment & Plan: -cxr noted -resume hhn, o2 prn -d/w pt. smoking cessation ICD Codes: J44.9 - Chronic obstructive pulmonary disease, unspecified SNOMED: 93015712 (2) LGI bleed Assessment & Plan: -follow h/h. -appreciate gi and surg eval -planned gi w/u in am -hold asa -cont ppi, dvt prophylaxis ICD Codes: K92.2 - Gastrointestinal hemorrhage, unspecified SNOMED: 84084124 (3) HTN (hypertension) Assessment & Plan: - add meds to better control. dc iv fluids ICD Codes: I10 - Essential (primary) hypertension SNOMED: 30669991 (4) MRSA colonization Assessment & Plan: - on nasal bactroban ICD Codes: Z22.322 - Carrier or suspected carrier of Methicillin resistant Staphylococcus aureus SNOMED: 938343331 (5) UTI (urinary tract infection) Assessment & Plan: - cultures noted, on abx, ID eval appreciated ICD Codes: N39.0 - Urinary tract infection, site not specified SNOMED: 57696125 (6) Leukocytosis Assessment & Plan: -ID added flagyl, watch closely ICD Codes: D72.829 - Elevated white blood cell count, unspecified SNOMED: 487438872, 273186506 Status: stable Subjective Date patient seen: Mar 18, 2018 Constitutional: Reports: no symptoms Cardiovascular: Denies: no symptoms, chest pain, edema, irregular heart rate, lightheadedness, palpitations, syncope, other Respiratory: Denies: no symptoms, cough, orthopnea, shortness of breath, SOB with excertion, SOB at rest, sputum, stridor, wheezing, other Gastrointestinal/Abdominal: Denies: no symptoms, abdomen distended, abdominal pain, black stools, tarry stools, blood in stool, constipated, diarrhea, difficulty swallowing, nausea, poor appetite, poor fluid intake, rectal bleeding , vomiting, other Endocrine: Denies: no symptoms, excessive sweating, flushing, intolerance to cold, intolerance to heat, increased hunger, increased thirst, increased urine, unexplained weight gain, unexplained weight loss, other Allergies: Coded Allergies: No Known Allergies (Unverified , 03/16/18) All Systems: reviewed and negative except above Subjective pt. seen and examined s/p coloscopy..bx taken.. no active bleeding Objective Last 24 Hour Vital Signs Date Time Temp Pulse Resp B/P (MAP) Pulse Ox O2 Delivery O2 Flow Rate FiO2 03/19/18 12:00 96.5 103 20 154/109 (124) 93 03/19/18 09:00 Room Air 03/19/18 08:00 96.3 101 20 154/114 (127) 91 03/19/18 07:58 131 03/19/18 04:00 98.1 107 21 160/99 (119) 94 03/19/18 04:00 101 03/19/18 00:00 100 03/19/18 00:00 97.8 92 20 135/92 (106) 95 03/18/18 21:00 Room Air 03/18/18 20:00 97.4 89 21 137/94 (108) 95 03/18/18 16:00 102 03/18/18 16:00 97.6 71 25 132/99 (110) 96 Intake and Output 03/18/18 03/19/18 18:59 06:59 Intake Total 200 ml 240 ml Output Total 0 ml Balance 200 ml 240 ml Intake Oral 240 ml IV Total 200 ml Estimated Blood Loss 0 ml # Voids 2 4 # Bowel Movements 1 Laboratory Tests 03/18/18 19:56: White Blood Count 14.1H, Red Blood Count 3.79L, Hemoglobin 10.3L, Hematocrit 32.9L, Mean Corpuscular Volume 87, Mean Corpuscular Hemoglobin 27.2, Mean Corpuscular Hemoglobin Concent 31.2L, Red Cell Distribution Width 21.5H, Platelet Count 257, Mean Platelet Volume 6.8, Neutrophils (%) (Auto) 67.3, Lymphocytes (%) (Auto) 10.9L, Monocytes (%) (Auto) 16.7H, Eosinophils (%) (Auto ) 3.6H, Basophils (%) (Auto) 1.6 03/19/18 09:15: White Blood Count 13.3H, Red Blood Count 3.85L, Hemoglobin 10.7L, Hematocrit 33.4L, Mean Corpuscular Volume 87, Mean Corpuscular Hemoglobin 27.7, Mean Corpuscular Hemoglobin Concent 32.0, Red Cell Distribution Width 21.2H, Platelet Count 261, Mean Platelet Volume 7.2, Neutrophils (%) (Auto) 68.5, Lymphocytes (%) (Auto) 9.8L, Monocytes (%) (Auto) 15.9H, Eosinophils (%) (Auto) 4.3H, Basophils (%) (Auto) 1.5, Sodium Level 140, Potassium Level 3.7, Chloride Level 105, Carbon Dioxide Level 29, Anion Gap 6, Blood Urea Nitrogen 10, Creatinine 1.0, Estimat Glomerular Filtration Rate , Glucose Level 105, Calcium Level 8.3L 03/19/18 13:00: White Blood Count 12.8H, Red Blood Count 3.82L, Hemoglobin 10.4L, Hematocrit 33.0L, Mean Corpuscular Volume 86, Mean Corpuscular Hemoglobin 27.1, Mean Corpuscular Hemoglobin Concent 31.4L, Red Cell Distribution Width 21.2H, Platelet Count 257, Mean Platelet Volume 7.2, Neutrophils (%) (Auto) , Lymphocytes (%) (Auto) , Monocytes (%) (Auto) , Eosinophils (%) (Auto) , Basophils (%) (Auto) , Neutrophils % (Manual) [Pending], Lymphocytes % (Manual) [Pending], Platelet Estimate [Pending], Platelet Morphology [Pending] Height (Feet): 5 Height (Inches): 9.00 Weight (Pounds): 180 General Appearance: WD/WN, no apparent distress EENT: PERRL/EOMI, normal ENT inspection Neck: non-tender Cardiovascular: normal rate Respiratory/Chest: lungs clear Abdomen: normal bowel sounds, soft, no organomegaly Pelvis: normal external exam Neurologic: denial management representative II-XII grossly normal, no motor/sensory deficits, oriented x 3 Skin: normal pigmentation, warm/dry Michele Ortiz M.D. Mar 19, 2018 13:47
--- NOTE | 2018-03-19 13:49 | Nephrology Progress Note ---
Assessment/Plan Problem List: (1) COPD (chronic obstructive pulmonary disease) Assessment & Plan: -cxr noted -resume hhn, o2 prn -d/w pt. smoking cessation ICD Codes: J44.9 - Chronic obstructive pulmonary disease, unspecified SNOMED: 56073784 (2) LGI bleed Assessment & Plan: -follow h/h. -appreciate gi and surg eval -planned gi w/u in am -hold asa -cont ppi, dvt prophylaxis ICD Codes: K92.2 - Gastrointestinal hemorrhage, unspecified SNOMED: 69587264 (3) HTN (hypertension) Assessment & Plan: - add meds to better control. dc iv fluids ICD Codes: I10 - Essential (primary) hypertension SNOMED: 32421377 (4) MRSA colonization Assessment & Plan: - on nasal bactroban ICD Codes: Z22.322 - Carrier or suspected carrier of Methicillin resistant Staphylococcus aureus SNOMED: 948536584 (5) UTI (urinary tract infection) Assessment & Plan: - cultures noted, on abx, ID eval appreciated ICD Codes: N39.0 - Urinary tract infection, site not specified SNOMED: 21357832 (6) Leukocytosis Assessment & Plan: -ID added flagyl, watch closely ICD Codes: D72.829 - Elevated white blood cell count, unspecified SNOMED: 533652737, 098016022 Status: stable Subjective Date patient seen: Mar 19, 2018 ROS Limited/Unobtainable: No HEENT: Reports: no symptoms Cardiovascular: Reports: no symptoms Respiratory: Reports: no symptoms Gastrointestinal/Abdominal: Reports: no symptoms Neurologic/Psychiatric: Reports: no symptoms Allergies: Coded Allergies: No Known Allergies (Unverified , 03/16/18) Subjective pt. seen and examined s/p coloscopy..bx taken.. no active bleeding bp high, occ elevated HR Objective Last 24 Hour Vital Signs Date Time Temp Pulse Resp B/P (MAP) Pulse Ox O2 Delivery O2 Flow Rate FiO2 03/19/18 12:00 96.5 103 20 154/109 (124) 93 03/19/18 09:00 Room Air 03/19/18 08:00 96.3 101 20 154/114 (127) 91 03/19/18 07:58 131 03/19/18 04:00 98.1 107 21 160/99 (119) 94 03/19/18 04:00 101 03/19/18 00:00 100 03/19/18 00:00 97.8 92 20 135/92 (106) 95 03/18/18 21:00 Room Air 03/18/18 20:00 97.4 89 21 137/94 (108) 95 03/18/18 16:00 102 03/18/18 16:00 97.6 71 25 132/99 (110) 96 Intake and Output 03/18/18 03/19/18 18:59 06:59 Intake Total 200 ml 240 ml Output Total 0 ml Balance 200 ml 240 ml Intake Oral 240 ml IV Total 200 ml Estimated Blood Loss 0 ml # Voids 2 4 # Bowel Movements 1 Laboratory Tests 03/18/18 19:56: White Blood Count 14.1H, Red Blood Count 3.79L, Hemoglobin 10.3L, Hematocrit 32.9L, Mean Corpuscular Volume 87, Mean Corpuscular Hemoglobin 27.2, Mean Corpuscular Hemoglobin Concent 31.2L, Red Cell Distribution Width 21.5H, Platelet Count 257, Mean Platelet Volume 6.8, Neutrophils (%) (Auto) 67.3, Lymphocytes (%) (Auto) 10.9L, Monocytes (%) (Auto) 16.7H, Eosinophils (%) (Auto ) 3.6H, Basophils (%) (Auto) 1.6 03/19/18 09:15: White Blood Count 13.3H, Red Blood Count 3.85L, Hemoglobin 10.7L, Hematocrit 33.4L, Mean Corpuscular Volume 87, Mean Corpuscular Hemoglobin 27.7, Mean Corpuscular Hemoglobin Concent 32.0, Red Cell Distribution Width 21.2H, Platelet Count 261, Mean Platelet Volume 7.2, Neutrophils (%) (Auto) 68.5, Lymphocytes (%) (Auto) 9.8L, Monocytes (%) (Auto) 15.9H, Eosinophils (%) (Auto) 4.3H, Basophils (%) (Auto) 1.5, Sodium Level 140, Potassium Level 3.7, Chloride Level 105, Carbon Dioxide Level 29, Anion Gap 6, Blood Urea Nitrogen 10, Creatinine 1.0, Estimat Glomerular Filtration Rate , Glucose Level 105, Calcium Level 8.3L 03/19/18 13:00: White Blood Count 12.8H, Red Blood Count 3.82L, Hemoglobin 10.4L, Hematocrit 33.0L, Mean Corpuscular Volume 86, Mean Corpuscular Hemoglobin 27.1, Mean Corpuscular Hemoglobin Concent 31.4L, Red Cell Distribution Width 21.2H, Platelet Count 257, Mean Platelet Volume 7.2, Neutrophils (%) (Auto) , Lymphocytes (%) (Auto) , Monocytes (%) (Auto) , Eosinophils (%) (Auto) , Basophils (%) (Auto) , Neutrophils % (Manual) [Pending], Lymphocytes % (Manual) [Pending], Platelet Estimate [Pending], Platelet Morphology [Pending] Height (Feet): 5 Height (Inches): 9.00 Weight (Pounds): 180 General Appearance: WD/WN, no apparent distress, alert EENT: PERRL/EOMI, normal ENT inspection, TMs normal Neck: non-tender Cardiovascular: tachycardia Respiratory/Chest: lungs clear Abdomen: normal bowel sounds Pelvis: normal external exam Extremities: normal range of motion 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 Mar 19, 2018 13:49
--- NOTE | 2018-03-19 13:53 | NUR ---
[employer] SI: LOWER GI BLEED, LEUKOCYTOSIS, S/P COLONOSCOPY T. 96.3 HR 107 RR 20 B/P 154/109 WBC 12.8 IS: FLAGYL IV CEFTRIAXONE IV TELE STATUS
[2018-03-19] MEDS: dilTIAZem HCl 30mg tab ORAL SCH ×2 (14:14→21:41)
[2018-03-19 14:27] VITALS: BP 139/92
[2018-03-19 16:00] VITALS: BP 157/71
--- NOTE | 2018-03-19 16:00 | Infectious Diseases Prog Note ---
Assessment/Plan Problems: (1) Leukocytosis Assessment & Plan: rule out sepsis , continue ceftriaxone and metronidazole empirically pending blood culture x2 and GI eval (2) UTI (urinary tract infection) Assessment & Plan: continue ceftriaxone pending urine culture (3) Gastrointestinal hemorrhage Assessment & Plan: had colonoscopy which showed rectal ulcer and hemorrhoids , S/P biopsy of the rectal ulcer . GI and general surgery are following , monitor H/H , transfuse as needed (4) COPD (chronic obstructive pulmonary disease) Assessment & Plan: continue inhalers, antibiotics and oxygen as needed (5) MRSA colonization Assessment & Plan: keep in contact isolation for now , continue Bactroban intranasally for 5 days Subjective Constitutional: Reports: no symptoms HEENT: Reports: no symptoms Respiratory: Reports: no symptoms Breasts: Reports: no symptoms Cardiovascular: Reports: no symptoms Gastrointestinal/Abdominal: Reports: no symptoms Genitourinary: Reports: no symptoms Neurologic: Reports: no symptoms Psychiatric: Reports: no symptoms Skin: Reports: no symptoms Endocrine: Reports: no symptoms Hematologic: Reports: no symptoms Musculoskeletal: Reports: no symptoms Allergies: Coded Allergies: No Known Allergies (Unverified , 03/16/18) Objective Vital Signs Last 24 Hour Vital Signs Date Time Temp Pulse Resp B/P (MAP) Pulse Ox O2 Delivery O2 Flow Rate FiO2 03/19/18 14:27 94 139/92 (108) 03/19/18 14:14 103 154/109 03/19/18 12:00 96.5 103 20 154/109 (124) 93 03/19/18 09:00 Room Air 03/19/18 08:00 96.3 101 20 154/114 (127) 91 03/19/18 07:58 131 03/19/18 04:00 98.1 107 21 160/99 (119) 94 03/19/18 04:00 101 03/19/18 00:00 100 03/19/18 00:00 97.8 92 20 135/92 (106) 95 03/18/18 21:00 Room Air 03/18/18 20:00 97.4 89 21 137/94 (108) 95 03/18/18 16:00 102 03/18/18 16:00 97.6 71 25 132/99 (110) 96 Height (Feet): 5 Height (Inches): 9.00 Weight (Pounds): 180 General Appearance: WD/WN, no acute distress HEENT: normocephalic, atraumatic, anicteric, mucous membranes moist, PERRL Respiratory/Chest: chest wall non-tender, lungs clear, normal breath sounds, no respiratory distress, no accessory muscle use Cardiovascular: normal peripheral pulses, normal rate, regular rhythm, no gallop/murmur, no JVD Abdomen: normal bowel sounds, soft, non tender, no organomegaly, non distended , no mass, no scars Extremities: no cyanosis, no clubbing Skin: no rash, no lesions, no ulcers Neurologic/Psychiatric: alert, responsive Lymphatic: no neck adenopathy, no groin adenopathy Musculoskeletal: normal muscle bulk, no effusion Laboratory Tests Test 03/18/18 19:56 03/19/18 09:15 03/19/18 13:00 White Blood Count 14.1 K/UL (4.8-10.8) H 13.3 K/UL (4.8-10.8) H 12.8 K/UL (4.8-10.8) H Red Blood Count 3.79 M/UL (4.70-6.10) L 3.85 M/UL (4.70-6.10) L 3.82 M/UL (4.70-6.10) L Hemoglobin 10.3 G/DL (14.2-18.0) L 10.7 G/DL (14.2-18.0) L 10.4 G/DL (14.2-18.0) L Hematocrit 32.9 % (42.0-52.0) L 33.4 % (42.0-52.0) L 33.0 % (42.0-52.0) L Mean Corpuscular Volume 87 FL (80-99) 87 FL (80-99) 86 FL (80-99) Mean Corpuscular Hemoglobin 27.2 PG (27.0-31.0) 27.7 PG (27.0-31.0) 27.1 PG (27.0-31.0) Mean Corpuscular Hemoglobin Concent 31.2 G/DL (32.0-36.0) L 32.0 G/DL (32.0-36.0) 31.4 G/DL (32.0-36.0) L Red Cell Distribution Width 21.5 % (11.6-14.8) H 21.2 % (11.6-14.8) H 21.2 % (11.6-14.8) H Platelet Count 257 K/UL (150-450) 261 K/UL (150-450) 257 K/UL (150-450) Mean Platelet Volume 6.8 FL (6.5-10.1) 7.2 FL (6.5-10.1) 7.2 FL (6.5-10.1) Neutrophils (%) (Auto) 67.3 % (45.0-75.0) 68.5 % (45.0-75.0) % (45.0-75.0) Lymphocytes (%) (Auto) 10.9 % (20.0-45.0) L 9.8 % (20.0-45.0) L % (20.0-45.0) Monocytes (%) (Auto) 16.7 % (1.0-10.0) H 15.9 % (1.0-10.0) H % (1.0-10.0) Eosinophils (%) (Auto) 3.6 % (0.0-3.0) H 4.3 % (0.0-3.0) H % (0.0-3.0) Basophils (%) (Auto) 1.6 % (0.0-2.0) 1.5 % (0.0-2.0) % (0.0-2.0) Sodium Level 140 MMOL/L (136-145) Potassium Level 3.7 MMOL/L (3.5-5.1) Chloride Level 105 MMOL/L (98-107) Carbon Dioxide Level 29 MMOL/L (21-32) Anion Gap 6 mmol/L (5-15) Blood Urea Nitrogen 10 mg/dL (7-18) Creatinine 1.0 MG/DL (0.55-1.30) Estimat Glomerular Filtration Rate mL/min (>60) Glucose Level 105 MG/DL (74-106) Calcium Level 8.3 MG/DL (8.5-10.1) L Differential Total Cells Counted 100 Neutrophils % (Manual) 75 % (45-75) Lymphocytes % (Manual) 10 % (20-45) L Monocytes % (Manual) 12 % (1-10) H Eosinophils % (Manual) 3 % (0-3) Basophils % (Manual) 0 % (0-2) Band Neutrophils 0 % (0-8) Platelet Estimate Adequate Platelet Morphology Normal Hypochromasia 1+ Anisocytosis 2+ HIV (1&2) Antibody Rapid Negative (NEGATIVE) Current Medications Medications (Trade) Dose Ordered Sig/Valeria Route PRN Reason Start Time Stop Time Status Last Admin Dose Admin Ceftriaxone Sodium 2 gm/ Dextrose 55 ml @ 110 mls/hr Q24H IVPB 03/17/18 18:30 03/24/18 18:29 03/18/18 17:55 Dextrose (Dextrose 50%) 25 ml Q30M PRN IV Hypoglycemia 03/16/18 17:43 04/15/18 17:42 Dextrose (Dextrose 50%) 50 ml Q30M PRN IV Hypoglycemia 03/16/18 17:42 04/15/18 17:41 Dextrose/Sodium Chloride 1,000 ml @ 75 mls/hr [id number] IV 03/17/18 10:30 04/15/18 10:29 03/19/18 06:32 Diltiazem HCl (Cardizem) 30 mg EVERY 8 HOURS ORAL 03/19/18 14:00 04/18/18 13:59 03/19/18 14:14 Hydrocortisone (Anusol HC) 1 applic Q12HR RECTAL 03/16/18 21:00 04/15/18 20:59 03/19/18 08:47 Insulin Aspart (NovoLOG) BEFORE MEALS AND HS SUBQ 03/16/18 21:00 04/15/18 20:59 03/18/18 16:43 Iron Sucrose 100 mg/Sodium Chloride 60 ml @ 240 mls/hr BEDTIME IV 03/18/18 21:00 03/22/18 21:14 03/18/18 21:54 Lorazepam (Ativan 2mg/ml 1ml) 1 mg Q6H PRN IV For Anxiety 03/16/18 21:44 03/23/18 21:43 03/19/18 06:31 Metronidazole 100 ml @ 100 mls/hr Q8HR IVPB 03/17/18 22:00 03/24/18 21:59 03/19/18 14:14 Morphine Sulfate (Morphine Sulfate) 2 mg Q4H PRN IVP For Pain 03/16/18 21:44 03/23/18 21:43 03/18/18 07:47 Mupirocin (Bactroban Oint) 1 applic THREE TIMES A DAY TOPIC 03/18/18 18:00 03/23/18 17:59 03/19/18 14:14 Pantoprazole (Protonix) 40 mg BIAC ORAL 03/18/18 16:45 04/17/18 16:44 03/19/18 06:31 Quetiapine Fumarate (SEROquel) 25 mg DAILY ORAL 03/17/18 09:00 04/16/18 08:59 03/19/18 08:46 Shreyas Flores M.D. Mar 19, 2018 16:00
[2018-03-19] MEDS: cefTRIAXone 2 GM in D5W 55 ML IVPB SCH (17:07)
[2018-03-19] MEDS: Morphine Sulfate 2mg/ml Inj IVP PRN ×2 (18:46→23:32)
--- NOTE | 2018-03-19 19:29 | NUR ---
HAND-OFF: Report given to NICOLE Cota.
--- NOTE | 2018-03-19 19:30 | General Progress Note ---
Assessment/Plan Assessment/Plan ASSESSMENT/RECOMMENDATION: # Anemia due to GI bleeding, unclear source. GI and Surgery are following. --> s/p colo today and results are pending --> Monitor hemoglobin and hematocrit. --> Continue PPI, transfuse as needed. May need endoscopy. --> on ppi , does not need octreotide # Anemia of iron deficiency, ferritin is 50 --> started on iv iron x 5 doses # Leukocytosis, rule out sepsis. We will start ceftriaxone and metronidazole empiric coverage for possible intra-abdominal infection and send blood culture x2. --> closely monitor for improvement --> smear has been ordered, no abnml lymphocytes noted --> does not need jak2 at this time # UTI. We will start ceftriaxone. Pending urine culture results. --> appreciate Id care # COPD. Continue inhalers, antibiotics, and oxygen as needed. Thank you for the consult. Greatly appreciate consultation. Subjective Constitutional: Denies: no symptoms, chills, diaphoresis, fever, malaise, weakness, other HEENT: Denies: no symptoms, eye pain, blurred vision, tearing, double vision, ear pain, ear discharge, nose pain, nose congestion, throat pain, throat swelling, mouth pain, mouth swelling, other Cardiovascular: Denies: no symptoms, chest pain, edema, irregular heart rate, lightheadedness, palpitations, syncope, other Gastrointestinal/Abdominal: Denies: no symptoms, abdomen distended, abdominal pain, black stools, tarry stools, blood in stool, constipated, diarrhea, difficulty swallowing, nausea, poor appetite, poor fluid intake, rectal bleeding , vomiting, other Genitourinary: Denies: no symptoms, burning, discharge, frequency, flank pain, hematuria, incontinence, pain, urgency, other Neurologic/Psychiatric: Denies: no symptoms, anxiety, depressed, emotional problems, headache, numbness, paresthesia, pre-existing deficit, seizure, tingling, tremors, weakness, other Endocrine: Denies: no symptoms, excessive sweating, flushing, intolerance to cold, intolerance to heat, increased hunger, increased thirst, increased urine, unexplained weight gain, unexplained weight loss, other Hematologic/Lymphatic: Denies: no symptoms, anemia, easy bleeding, easy bruising, other Allergies: Coded Allergies: No Known Allergies (Unverified , 03/16/18) Subjective 03/19: seen by bedside, s/p colonoscopy, biopsy taken. no active bleeding. labs stable Objective Last 24 Hour Vital Signs Date Time Temp Pulse Resp B/P (MAP) Pulse Ox O2 Delivery O2 Flow Rate FiO2 03/19/18 16:05 91 03/19/18 16:00 97.1 97 20 157/71 (99) 94 03/19/18 14:27 94 139/92 (108) 03/19/18 14:14 103 154/109 03/19/18 12:00 96.5 103 20 154/109 (124) 93 03/19/18 11:54 105 03/19/18 09:00 Room Air 03/19/18 08:00 96.3 101 20 154/114 (127) 91 03/19/18 07:58 131 03/19/18 04:00 98.1 107 21 160/99 (119) 94 03/19/18 04:00 101 03/19/18 00:00 100 03/19/18 00:00 97.8 92 20 135/92 (106) 95 03/18/18 21:00 Room Air 03/18/18 20:00 97.4 89 21 137/94 (108) 95 Intake and Output 03/18/18 03/19/18 19:00 07:00 Intake Total 200 ml 240 ml Output Total 0 ml Balance 200 ml 240 ml Intake Oral 240 ml IV Total 200 ml Estimated Blood Loss 0 ml # Voids 2 4 # Bowel Movements 1 Laboratory Tests 03/18/18 19:56: White Blood Count 14.1H, Red Blood Count 3.79L, Hemoglobin 10.3L, Hematocrit 32.9L, Mean Corpuscular Volume 87, Mean Corpuscular Hemoglobin 27.2, Mean Corpuscular Hemoglobin Concent 31.2L, Red Cell Distribution Width 21.5H, Platelet Count 257, Mean Platelet Volume 6.8, Neutrophils (%) (Auto) 67.3, Lymphocytes (%) (Auto) 10.9L, Monocytes (%) (Auto) 16.7H, Eosinophils (%) (Auto ) 3.6H, Basophils (%) (Auto) 1.6 03/19/18 09:15: White Blood Count 13.3H, Red Blood Count 3.85L, Hemoglobin 10.7L, Hematocrit 33.4L, Mean Corpuscular Volume 87, Mean Corpuscular Hemoglobin 27.7, Mean Corpuscular Hemoglobin Concent 32.0, Red Cell Distribution Width 21.2H, Platelet Count 261, Mean Platelet Volume 7.2, Neutrophils (%) (Auto) 68.5, Lymphocytes (%) (Auto) 9.8L, Monocytes (%) (Auto) 15.9H, Eosinophils (%) (Auto) 4.3H, Basophils (%) (Auto) 1.5, Sodium Level 140, Potassium Level 3.7, Chloride Level 105, Carbon Dioxide Level 29, Anion Gap 6, Blood Urea Nitrogen 10, Creatinine 1.0, Estimat Glomerular Filtration Rate , Glucose Level 105, Calcium Level 8.3L 03/19/18 13:00: White Blood Count 12.8H, Red Blood Count 3.82L, Hemoglobin 10.4L, Hematocrit 33.0L, Mean Corpuscular Volume 86, Mean Corpuscular Hemoglobin 27.1, Mean Corpuscular Hemoglobin Concent 31.4L, Red Cell Distribution Width 21.2H, Platelet Count 257, Mean Platelet Volume 7.2, Neutrophils (%) (Auto) , Lymphocytes (%) (Auto) , Monocytes (%) (Auto) , Eosinophils (%) (Auto) , Basophils (%) (Auto) , Differential Total Cells Counted 100, Neutrophils % ( Manual) 75, Lymphocytes % (Manual) 10L, Monocytes % (Manual) 12H, Eosinophils % (Manual) 3, Basophils % (Manual) 0, Band Neutrophils 0, Platelet Estimate Adequate, Platelet Morphology Normal, Hypochromasia 1+, Anisocytosis 2+, HIV (1& 2) Antibody Rapid Negative Height (Feet): 5 Height (Inches): 9.00 Weight (Pounds): 180 Objective PHYSICAL EXAMINATION GENERAL: An elderly male, lying in bed, awake, alert, responsive, not in acute distress. HEENT: Normocephalic and atraumatic. Pupils reactive to light equally. Moist oral mucosa. No exudate or thrush. NECK: Supple. No lymphadenopathy. CARDIOVASCULAR: Regular rate and rhythm. No murmur or gallop. LUNGS: He had diminished breathing sounds at the bases with crackles. No wheezing or rhonchi ABDOMEN: Soft, obese, distended, and nontender. Normal bowel sounds. No hepatosplenomegaly or ascites. EXTREMITIES: No edema or cyanosis. Kleynberg,Christopher L. MD Mar 19, 2018 19:30
--- NOTE | 2018-03-19 19:30 | NUR ---
NURSE NOTES: Received report from NICOLE Odell. Pt is awake and resting in bed. In no acute distress. Bed in lowest position, call light within reach. Will continue plan of care.
[2018-03-19] MEDS: Iron Sucrose 100 MG in NS 55 ML IV SCH (21:43)
[2018-03-20] VITALS: BP 134/93
[2018-03-20] MEDS: Morphine Sulfate 2mg/ml Inj IVP PRN ×4 (03:59→23:20)
[2018-03-20 04:00] VITALS: BP 152/90
[2018-03-20] MEDS: D5NS 1,000 ML IV SCH ×2 (05:10→10:15)
[2018-03-20] MEDS: dilTIAZem HCl 30mg tab ORAL SCH ×3 (05:42→22:22)
[2018-03-20] MEDS: NovoLOG Insulin Flexpen SUBQ SCH ×4 (06:30→20:29)
--- NOTE | 2018-03-20 07:15 | NUR ---
NURSE NOTES: I received the patient awake and resting in bed. Patient alert and oriented x3. Bed in the lowest position and call light within reach. Patient does not display any signs of distress or SOB.
--- NOTE | 2018-03-20 07:28 | NUR ---
HAND-OFF: Report given to NICOLE Odell.
[2018-03-20 07:56] LABS: BASOPHILS % (AUTO) 1.4 % (0.0-2.0); HEMATOCRIT 32.3 % (42.0-52.0); HEMOGLOBIN 10.3 G/DL (14.2-18.0); LYMPHOCYTES % (AUTO) 11.6 % (20.0-45.0); MEAN CORPUSCULAR VOLUME 87 FL (80-99); MONOCYTES % (AUTO) 17.9 % (1.0-10.0); NEUTROPHILS % (AUTO) 65.1 % (45.0-75.0); PLATELET COUNT 278 K/UL (150-450); RED BLOOD COUNT 3.72 M/UL (4.70-6.10); RED CELL DISTRIBUTION WIDTH 21.6 % (11.6-14.8); WHITE BLOOD COUNT 12.7 K/UL (4.8-10.8)
[2018-03-20 08:00] VITALS: BP 132/89
[2018-03-20 08:22] LABS: ANION GAP 7 mmol/L (5-15); BLOOD UREA NITROGEN 8 mg/dL (7-18); CALCIUM 8.8 MG/DL (8.5-10.1); CARBON DIOXIDE 29 MMOL/L (21-32); CHLORIDE 107 MMOL/L (98-107); CREATININE 0.9 MG/DL (0.55-1.30); POTASSIUM 3.5 MMOL/L (3.5-5.1); SODIUM 142 MMOL/L (136-145)
[2018-03-20] MEDS: LORazepam Inj 2mg/ml 1ml IV PRN (10:15)
--- NOTE | 2018-03-20 10:45 | GI Progress Note ---
Assessment/Plan Problems: (1) Acute hemorrhoid ICD Codes: K64.9 - Unspecified hemorrhoids SNOMED: 4314358, 59484665 (2) LGI bleed ICD Codes: K92.2 - Gastrointestinal hemorrhage, unspecified SNOMED: 43674463 (3) Gastrointestinal hemorrhage ICD Codes: K92.2 - Gastrointestinal hemorrhage, unspecified SNOMED: 43735706 (4) Anemia ICD Codes: D64.9 - Anemia, unspecified SNOMED: 708915317 Status: stable Status Narrative Discussed with Dr. Dixon Assessment/Plan s/p EGD colonoscopy SUMMARY OF FINDINGS: 1. History of right hemicolectomy with one polyp at the anastomosis, status post polypectomy. 2. Fair colonic prep. 3. Diverticulosis. 4. Sigmoid polyp removed with cold biopsy. 5. Rectal ulceration, status post biopsy. 6. Hemorrhoids. stable H&H RECOMMENDATIONS: 1. Resume diet. 2. Follow labs. 3. Follow biopsy results. 4. okay for DC per GI standpoint The patient was seen and examined at bedside and all new and available data was reviewed in the patients chart. I agree with the above findings, impression and plan. (Patient seen earlier today. Signature stamp does not reflect patient encounter time.). - Hitesh Dixon MD Subjective Gastrointestinal/Abdominal: Reports: no symptoms Objective Last 24 Hour Vital Signs Date Time Temp Pulse Resp B/P (MAP) Pulse Ox O2 Delivery O2 Flow Rate FiO2 03/20/18 09:27 97.3 03/20/18 09:00 Room Air 03/20/18 08:00 97.3 72 20 132/89 (103) 94 03/20/18 07:52 82 03/20/18 05:42 81 160/96 03/20/18 04:00 89 03/20/18 04:00 97.6 89 18 152/90 (110) 95 03/20/18 00:00 81 03/20/18 00:00 98.0 81 20 134/93 (107) 95 03/19/18 21:41 93 03/19/18 21:00 Room Air 03/19/18 20:00 91 03/19/18 20:00 91 03/19/18 16:05 91 03/19/18 16:00 97.1 97 20 157/71 (99) 94 03/19/18 14:27 94 139/92 (108) 03/19/18 14:14 103 154/109 03/19/18 12:00 96.5 103 20 154/109 (124) 93 03/19/18 11:54 105 Intake and Output 03/19/18 03/20/18 19:00 07:00 Intake Total 1235 ml 800 ml Balance 1235 ml 800 ml Intake Oral 560 ml IV Total 675 ml 800 ml # Voids 2 2 # Bowel Movements 1 Laboratory Tests Test 03/19/18 13:00 03/20/18 07:30 White Blood Count 12.8 K/UL (4.8-10.8) H 12.7 K/UL (4.8-10.8) H Red Blood Count 3.82 M/UL (4.70-6.10) L 3.72 M/UL (4.70-6.10) L Hemoglobin 10.4 G/DL (14.2-18.0) L 10.3 G/DL (14.2-18.0) L Hematocrit 33.0 % (42.0-52.0) L 32.3 % (42.0-52.0) L Mean Corpuscular Volume 86 FL (80-99) 87 FL (80-99) Mean Corpuscular Hemoglobin 27.1 PG (27.0-31.0) 27.7 PG (27.0-31.0) Mean Corpuscular Hemoglobin Concent 31.4 G/DL (32.0-36.0) L 31.8 G/DL (32.0-36.0) L Red Cell Distribution Width 21.2 % (11.6-14.8) H 21.6 % (11.6-14.8) H Platelet Count 257 K/UL (150-450) 278 K/UL (150-450) Mean Platelet Volume 7.2 FL (6.5-10.1) 8.1 FL (6.5-10.1) Neutrophils (%) (Auto) % (45.0-75.0) 65.1 % (45.0-75.0) Lymphocytes (%) (Auto) % (20.0-45.0) 11.6 % (20.0-45.0) L Monocytes (%) (Auto) % (1.0-10.0) 17.9 % (1.0-10.0) H Eosinophils (%) (Auto) % (0.0-3.0) 4.0 % (0.0-3.0) H Basophils (%) (Auto) % (0.0-2.0) 1.4 % (0.0-2.0) Differential Total Cells Counted 100 Neutrophils % (Manual) 75 % (45-75) Lymphocytes % (Manual) 10 % (20-45) L Monocytes % (Manual) 12 % (1-10) H Eosinophils % (Manual) 3 % (0-3) Basophils % (Manual) 0 % (0-2) Band Neutrophils 0 % (0-8) Platelet Estimate Adequate Platelet Morphology Normal Hypochromasia 1+ Anisocytosis 2+ HIV (1&2) Antibody Rapid Negative (NEGATIVE) Sodium Level 142 MMOL/L (136-145) Potassium Level 3.5 MMOL/L (3.5-5.1) Chloride Level 107 MMOL/L (98-107) Carbon Dioxide Level 29 MMOL/L (21-32) Anion Gap 7 mmol/L (5-15) Blood Urea Nitrogen 8 mg/dL (7-18) Creatinine 0.9 MG/DL (0.55-1.30) Estimat Glomerular Filtration Rate mL/min (>60) Glucose Level 102 MG/DL (74-106) Calcium Level 8.8 MG/DL (8.5-10.1) Magnesium Level 1.9 MG/DL (1.8-2.4) Height (Feet): 5 Height (Inches): 9.00 Weight (Pounds): 232 General Appearance: WD/WN, no apparent distress, alert Cardiovascular: normal rate Respiratory/Chest: normal breath sounds, no respiratory distress Abdominal Exam: normal bowel sounds, non tender, soft Extremities: normal range of motion, non-tender Kristal Herman NP Mar 20, 2018 10:45
--- NOTE | 2018-03-20 11:19 | Diagnostic Imaging Report ---
Indication: Shortness of breath Technique: One view of the chest Comparison: none Findings: The heart is enlarged. There is bilateral mild interstitial prominence. Old healed right rib fracture deformities are noted. Atelectatic changes or scarring are seen in the left midlung Impression: Cardiomegaly Mild bilateral interstitial prominence, acuity indeterminate
--- NOTE | 2018-03-20 11:21 | NUR ---
*-* DISCHARGE PLANNING *-* PATIENT HAS BEEN REFERRED BACK TO: [facility]. P:[phone] F:[phone] PATIENT HAS BEEN ACCEPTED TO ROOM # 135-B PER [facility]
[2018-03-20 11:57] VITALS: BP 135/88
[2018-03-20 12:18] LABS: BASOPHILS % (AUTO) 1.5 % (0.0-2.0); EOSINOPHILS % (AUTO) 3.7 % (0.0-3.0); HEMATOCRIT 32.7 % (42.0-52.0); HEMOGLOBIN 10.2 G/DL (14.2-18.0); LYMPHOCYTES % (AUTO) 11.8 % (20.0-45.0); MEAN CORPUSCULAR VOLUME 86 FL (80-99); MONOCYTES % (AUTO) 15.6 % (1.0-10.0); NEUTROPHILS % (AUTO) 67.4 % (45.0-75.0); PLATELET COUNT 257 K/UL (150-450); RED BLOOD COUNT 3.78 M/UL (4.70-6.10); RED CELL DISTRIBUTION WIDTH 21.1 % (11.6-14.8); WHITE BLOOD COUNT 12.8 K/UL (4.8-10.8)
--- NOTE | 2018-03-20 12:49 | Surgery Progress Note ---
Surgery Progress Note Subjective Additional Comments no acute events. stable. comfortable. Objective Last 24 Hour Vital Signs Date Time Temp Pulse Resp B/P (MAP) Pulse Ox O2 Delivery O2 Flow Rate FiO2 03/20/18 11:57 97.2 80 135/88 (104) 03/20/18 09:27 97.3 03/20/18 09:00 Room Air 03/20/18 08:00 97.3 72 20 132/89 (103) 94 03/20/18 07:52 82 03/20/18 05:42 81 160/96 03/20/18 04:00 89 03/20/18 04:00 97.6 89 18 152/90 (110) 95 03/20/18 00:00 81 03/20/18 00:00 98.0 81 20 134/93 (107) 95 03/19/18 21:41 93 03/19/18 21:00 Room Air 03/19/18 20:00 91 03/19/18 20:00 91 03/19/18 16:05 91 03/19/18 16:00 97.1 97 20 157/71 (99) 94 03/19/18 14:27 94 139/92 (108) 03/19/18 14:14 103 154/109 I&O Intake and Output 03/19/18 03/20/18 19:00 07:00 Intake Total 1235 ml 800 ml Balance 1235 ml 800 ml Intake Oral 560 ml IV Total 675 ml 800 ml # Voids 2 2 # Bowel Movements 1 Cardiovascular: RSR Respiratory: clear Abdomen: soft, flat, non-tender, present bowel sounds Extremities: no tenderness, no cyanosis Laboratory Tests Test 03/19/18 13:00 03/20/18 07:30 03/20/18 12:05 White Blood Count 12.8 K/UL (4.8-10.8) H 12.7 K/UL (4.8-10.8) H 12.8 K/UL (4.8-10.8) H Red Blood Count 3.82 M/UL (4.70-6.10) L 3.72 M/UL (4.70-6.10) L 3.78 M/UL (4.70-6.10) L Hemoglobin 10.4 G/DL (14.2-18.0) L 10.3 G/DL (14.2-18.0) L 10.2 G/DL (14.2-18.0) L Hematocrit 33.0 % (42.0-52.0) L 32.3 % (42.0-52.0) L 32.7 % (42.0-52.0) L Mean Corpuscular Volume 86 FL (80-99) 87 FL (80-99) 86 FL (80-99) Mean Corpuscular Hemoglobin 27.1 PG (27.0-31.0) 27.7 PG (27.0-31.0) 27.0 PG (27.0-31.0) Mean Corpuscular Hemoglobin Concent 31.4 G/DL (32.0-36.0) L 31.8 G/DL (32.0-36.0) L 31.2 G/DL (32.0-36.0) L Red Cell Distribution Width 21.2 % (11.6-14.8) H 21.6 % (11.6-14.8) H 21.1 % (11.6-14.8) H Platelet Count 257 K/UL (150-450) 278 K/UL (150-450) 257 K/UL (150-450) Mean Platelet Volume 7.2 FL (6.5-10.1) 8.1 FL (6.5-10.1) 6.8 FL (6.5-10.1) Neutrophils (%) (Auto) % (45.0-75.0) 65.1 % (45.0-75.0) 67.4 % (45.0-75.0) Lymphocytes (%) (Auto) % (20.0-45.0) 11.6 % (20.0-45.0) L 11.8 % (20.0-45.0) L Monocytes (%) (Auto) % (1.0-10.0) 17.9 % (1.0-10.0) H 15.6 % (1.0-10.0) H Eosinophils (%) (Auto) % (0.0-3.0) 4.0 % (0.0-3.0) H 3.7 % (0.0-3.0) H Basophils (%) (Auto) % (0.0-2.0) 1.4 % (0.0-2.0) 1.5 % (0.0-2.0) Differential Total Cells Counted 100 Neutrophils % (Manual) 75 % (45-75) Lymphocytes % (Manual) 10 % (20-45) L Monocytes % (Manual) 12 % (1-10) H Eosinophils % (Manual) 3 % (0-3) Basophils % (Manual) 0 % (0-2) Band Neutrophils 0 % (0-8) Platelet Estimate Adequate Platelet Morphology Normal Hypochromasia 1+ Anisocytosis 2+ HIV (1&2) Antibody Rapid Negative (NEGATIVE) Sodium Level 142 MMOL/L (136-145) Potassium Level 3.5 MMOL/L (3.5-5.1) Chloride Level 107 MMOL/L (98-107) Carbon Dioxide Level 29 MMOL/L (21-32) Anion Gap 7 mmol/L (5-15) Blood Urea Nitrogen 8 mg/dL (7-18) Creatinine 0.9 MG/DL (0.55-1.30) Estimat Glomerular Filtration Rate mL/min (>60) Glucose Level 102 MG/DL (74-106) Calcium Level 8.8 MG/DL (8.5-10.1) Magnesium Level 1.9 MG/DL (1.8-2.4) Plan Problems: (1) LGI bleed Assessment & Plan: 73 year old male with Acute GI bleed. H/H stable now. no n /v/f/c/. [facility]. on ASA prior. s/p colonoscopy. rectal ulcer, polyp at prior right narayan, and hemorrhoids noted. no active bleeding. biopsies taken labs stable tolerating diet -no acute surgical intervention planned. -diet as tolerated -trend labs -blood products available if necessary -surgery available in case continues to bleed and requires surgical intervention -okay to d/c from surgical standpoint thank you for allowing me to participate in patients care (2) Gastrointestinal hemorrhage Torres Jauregui Mar 20, 2018 12:49
--- NOTE | 2018-03-20 14:04 | NUR ---
RD ASSESSMENT & RECOMMENDATIONS SEE CARE ACTIVITY FOR COMPLETE ASSESSMENT DAILY ESTIMATED NEEDS: Needs based on DM, obese 86kg adj 20-25 kcals/kg 0100-0672 total kcals 1-1.5 g protein/kg 86-129 g total protein 25-30 mL/kg 8436-4172 total fluid mLs NUTRITION DIAGNOSIS: Altered GI fxn r/t GIB as evidenced by pt adm w/ rectal bleeding, s/p colonoscopy w/ findings of: h/o R-hemicolectomy with one polyp at the anastomosis, Diverticulosis, Sigmoid polyp removed with cold biopsy, rectal ulceration, status post biopsy, and hemorrhoids. CURRENT DIET: Regular PO DIET RECOMMENDATIONS: Soft diet ADDITIONAL RECOMMENDATIONS: 1) Monitor BG, need for carb control diet 2) Add bowel regimen stool softeners 3) Prune juice TID w/ meals 4) Obtain a standing weight if able OR calibrated bed scale wt
[2018-03-20 16:00] VITALS: BP 108/82
--- NOTE | 2018-03-20 17:41 | General Progress Note ---
Assessment/Plan Assessment/Plan ASSESSMENT/RECOMMENDATION: # Anemia due to GI bleeding, unclear source. GI and Surgery are following. --> s/p colo today and results are pending --> Monitor hemoglobin and hematocrit. --> Continue PPI, transfuse as needed. May need endoscopy. --> on ppi , does not need octreotide # Anemia of iron deficiency, ferritin is 50 --> started on iv iron x 5 doses # Leukocytosis, rule out sepsis. We will start ceftriaxone and metronidazole empiric coverage for possible intra-abdominal infection and send blood culture x2. --> closely monitor for improvement --> smear has been ordered, no abnml lymphocytes noted --> does not need jak2 at this time # UTI. We will start ceftriaxone. Pending urine culture results. --> appreciate Id care # COPD. Continue inhalers, antibiotics, and oxygen as needed. Thank you for the consult. Greatly appreciate consultation. Subjective Constitutional: Denies: no symptoms, chills, diaphoresis, fever, malaise, weakness, other HEENT: Denies: no symptoms, eye pain, blurred vision, tearing, double vision, ear pain, ear discharge, nose pain, nose congestion, throat pain, throat swelling, mouth pain, mouth swelling, other Cardiovascular: Denies: no symptoms, chest pain, edema, irregular heart rate, lightheadedness, palpitations, syncope, other Respiratory: Denies: no symptoms, cough, orthopnea, shortness of breath, SOB with excertion, SOB at rest, sputum, stridor, wheezing, other Gastrointestinal/Abdominal: Denies: no symptoms, abdomen distended, abdominal pain, black stools, tarry stools, blood in stool, constipated, diarrhea, difficulty swallowing, nausea, poor appetite, poor fluid intake, rectal bleeding , vomiting, other Genitourinary: Denies: no symptoms, burning, discharge, frequency, flank pain, hematuria, incontinence, pain, urgency, other Neurologic/Psychiatric: Denies: no symptoms, anxiety, depressed, emotional problems, headache, numbness, paresthesia, pre-existing deficit, seizure, tingling, tremors, weakness, other Hematologic/Lymphatic: Denies: no symptoms, anemia, easy bleeding, easy bruising, other Allergies: Coded Allergies: No Known Allergies (Unverified , 03/16/18) Subjective 2/12: seen by bedside, s/p colonoscopy, biopsy taken. no active bleeding. labs stable 03/20: Pt is awake, resting in bed, no acute distress, stable Objective Last 24 Hour Vital Signs Date Time Temp Pulse Resp B/P (MAP) Pulse Ox O2 Delivery O2 Flow Rate FiO2 03/20/18 17:16 97.0 03/20/18 16:00 97.0 92 20 108/82 (91) 94 03/20/18 15:58 82 03/20/18 13:45 90 135/88 03/20/18 11:57 97.2 80 135/88 (104) 03/20/18 11:38 106 03/20/18 09:00 Room Air 03/20/18 08:00 97.3 72 20 132/89 (103) 94 03/20/18 07:52 82 03/20/18 05:42 81 160/96 03/20/18 04:00 89 03/20/18 04:00 97.6 89 18 152/90 (110) 95 03/20/18 00:00 81 03/20/18 00:00 98.0 81 20 134/93 (107) 95 03/19/18 21:41 93 03/19/18 21:00 Room Air 03/19/18 20:00 91 03/19/18 20:00 91 Intake and Output 03/19/18 03/20/18 18:59 06:59 Intake Total 1235 ml 800 ml Balance 1235 ml 800 ml Intake Oral 560 ml IV Total 675 ml 800 ml # Voids 2 2 # Bowel Movements 1 Laboratory Tests 03/20/18 07:30: White Blood Count 12.7H, Red Blood Count 3.72L, Hemoglobin 10.3L, Hematocrit 32.3L, Mean Corpuscular Volume 87, Mean Corpuscular Hemoglobin 27.7, Mean Corpuscular Hemoglobin Concent 31.8L, Red Cell Distribution Width 21.6H, Platelet Count 278, Mean Platelet Volume 8.1, Neutrophils (%) (Auto) 65.1, Lymphocytes (%) (Auto) 11.6L, Monocytes (%) (Auto) 17.9H, Eosinophils (%) (Auto ) 4.0H, Basophils (%) (Auto) 1.4, Sodium Level 142, Potassium Level 3.5, Chloride Level 107, Carbon Dioxide Level 29, Anion Gap 7, Blood Urea Nitrogen 8 , Creatinine 0.9, Estimat Glomerular Filtration Rate , Glucose Level 102, Calcium Level 8.8, Magnesium Level 1.9 03/20/18 12:05: White Blood Count 12.8H, Red Blood Count 3.78L, Hemoglobin 10.2L, Hematocrit 32.7L, Mean Corpuscular Volume 86, Mean Corpuscular Hemoglobin 27.0, Mean Corpuscular Hemoglobin Concent 31.2L, Red Cell Distribution Width 21.1H, Platelet Count 257, Mean Platelet Volume 6.8, Neutrophils (%) (Auto) 67.4, Lymphocytes (%) (Auto) 11.8L, Monocytes (%) (Auto) 15.6H, Eosinophils (%) (Auto ) 3.7H, Basophils (%) (Auto) 1.5 Height (Feet): 5 Height (Inches): 9.00 Weight (Pounds): 232 Objective PHYSICAL EXAMINATION GENERAL: An elderly male, lying in bed, awake, alert, responsive, not in acute distress. HEENT: Normocephalic and atraumatic. Pupils reactive to light equally. Moist oral mucosa. No exudate or thrush. NECK: Supple. No lymphadenopathy. CARDIOVASCULAR: Regular rate and rhythm. No murmur or gallop. LUNGS: He had diminished breathing sounds at the bases with crackles. No wheezing or rhonchi ABDOMEN: Soft, obese, distended, and nontender. Normal bowel sounds. No hepatosplenomegaly or ascites. EXTREMITIES: No edema or cyanosis. Christopher Steinberg MD Mar 20, 2018 17:41
[2018-03-20] MEDS: cefTRIAXone 2 GM in D5W 55 ML IVPB SCH (17:44)
[2018-03-20] MEDS ORDERED: PROTONIX40 MG ORAL (19:04)
[2018-03-20] MEDS ORDERED: SEROQUEL25 MG ORAL (19:04)
[2018-03-20] MEDS ORDERED: CARDIZEM30 MG ORAL (19:04)
[2018-03-20] MEDS ORDERED: METRONIDAZOLE500 MG ORAL (19:05)
--- NOTE | 2018-03-20 19:08 | Discharge Summary ---
Discharge Summary Hospital Course Date of Admission Mar 16, 2018 at 15:35 Date of Discharge Admitting Diagnosis LOWER G.I.BLEED HPI Javier Nelson is a 73 year old male who was admitted on Mar 16, 2018 at 15:35 for Lower Gi Bleed. pt. in hospital had stable h/h, had egd and colonoscopy shown to have hemorrhoids, ? possible colitis. treated for sepsis after seen by id with flagyl and ceftriaxone with improvement of wbc count. pt treated with iv iron, ppi bid and hhn for his copd. he has psych diagnosis which was stable with current psych meds. he will go to sn[facility] to complete flagyl and watch h/h closely. pt. cleared for dc by surgery and gi. Discharge Discharge Disposition Patient was discharged to Discharge Diagnoses: (1) COPD (chronic obstructive pulmonary disease) (2) Anemia (3) Psychosis (4) LGI bleed (5) Acute hemorrhoid (6) Leukocytosis (7) UTI (urinary tract infection) (8) HTN (hypertension) Michele Ortiz M.D. Mar 20, 2018 19:08
--- NOTE | 2018-03-20 19:17 | NUR ---
HAND-OFF: Report given to NICOLE Guido.
--- NOTE | 2018-03-20 19:22 | Infectious Diseases Prog Note ---
Assessment/Plan Problems: (1) Leukocytosis Assessment & Plan: improving, rule out sepsis , continue ceftriaxone and metronidazole empirically pending blood culture x2 and GI eval (2) UTI (urinary tract infection) Assessment & Plan: with negative culture , on ceftriaxone to cover colitis (3) Gastrointestinal hemorrhage Assessment & Plan: had colonoscopy which showed rectal ulcer and hemorrhoids , S/P biopsy of the rectal ulcer . GI and general surgery are following , monitor H/H , transfuse as needed (4) COPD (chronic obstructive pulmonary disease) Assessment & Plan: continue inhalers, antibiotics and oxygen as needed (5) MRSA colonization Assessment & Plan: keep in contact isolation for now , continue Bactroban intranasally for 5 days Subjective Constitutional: Reports: no symptoms HEENT: Reports: no symptoms Respiratory: Reports: no symptoms Breasts: Reports: no symptoms Cardiovascular: Reports: no symptoms Gastrointestinal/Abdominal: Reports: no symptoms Genitourinary: Reports: no symptoms Neurologic: Reports: no symptoms Psychiatric: Reports: no symptoms Skin: Reports: no symptoms Endocrine: Reports: no symptoms Hematologic: Reports: no symptoms Musculoskeletal: Reports: no symptoms Allergies: Coded Allergies: No Known Allergies (Unverified , 03/16/18) Objective Vital Signs Last 24 Hour Vital Signs Date Time Temp Pulse Resp B/P (MAP) Pulse Ox O2 Delivery O2 Flow Rate FiO2 03/20/18 17:16 97.0 03/20/18 16:00 97.0 92 20 108/82 (91) 94 03/20/18 15:58 82 03/20/18 13:45 90 135/88 03/20/18 11:57 97.2 80 135/88 (104) 03/20/18 11:38 106 03/20/18 09:00 Room Air 03/20/18 08:00 97.3 72 20 132/89 (103) 94 03/20/18 07:52 82 03/20/18 05:42 81 160/96 03/20/18 04:00 89 03/20/18 04:00 97.6 89 18 152/90 (110) 95 03/20/18 00:00 81 03/20/18 00:00 98.0 81 20 134/93 (107) 95 03/19/18 21:41 93 03/19/18 21:00 Room Air 03/19/18 20:00 91 03/19/18 20:00 91 Height (Feet): 5 Height (Inches): 9.00 Weight (Pounds): 232 General Appearance: WD/WN, no acute distress HEENT: normocephalic, atraumatic, anicteric, mucous membranes moist, PERRL, EOMI, pharynx normal, supple, no JVD Respiratory/Chest: chest wall non-tender, lungs clear, normal breath sounds, no respiratory distress, no accessory muscle use Cardiovascular: normal peripheral pulses, normal rate, regular rhythm, no gallop/murmur, no JVD Abdomen: normal bowel sounds, soft, non tender, no organomegaly, non distended , no mass, no scars Genitourinary: normal external genitalia Extremities: no cyanosis, no clubbing Skin: no rash, no lesions Neurologic/Psychiatric: alert, responsive Lymphatic: no neck adenopathy, no groin adenopathy Musculoskeletal: normal muscle bulk, no effusion Laboratory Tests Test 03/20/18 07:30 03/20/18 12:05 White Blood Count 12.7 K/UL (4.8-10.8) H 12.8 K/UL (4.8-10.8) H Red Blood Count 3.72 M/UL (4.70-6.10) L 3.78 M/UL (4.70-6.10) L Hemoglobin 10.3 G/DL (14.2-18.0) L 10.2 G/DL (14.2-18.0) L Hematocrit 32.3 % (42.0-52.0) L 32.7 % (42.0-52.0) L Mean Corpuscular Volume 87 FL (80-99) 86 FL (80-99) Mean Corpuscular Hemoglobin 27.7 PG (27.0-31.0) 27.0 PG (27.0-31.0) Mean Corpuscular Hemoglobin Concent 31.8 G/DL (32.0-36.0) L 31.2 G/DL (32.0-36.0) L Red Cell Distribution Width 21.6 % (11.6-14.8) H 21.1 % (11.6-14.8) H Platelet Count 278 K/UL (150-450) 257 K/UL (150-450) Mean Platelet Volume 8.1 FL (6.5-10.1) 6.8 FL (6.5-10.1) Neutrophils (%) (Auto) 65.1 % (45.0-75.0) 67.4 % (45.0-75.0) Lymphocytes (%) (Auto) 11.6 % (20.0-45.0) L 11.8 % (20.0-45.0) L Monocytes (%) (Auto) 17.9 % (1.0-10.0) H 15.6 % (1.0-10.0) H Eosinophils (%) (Auto) 4.0 % (0.0-3.0) H 3.7 % (0.0-3.0) H Basophils (%) (Auto) 1.4 % (0.0-2.0) 1.5 % (0.0-2.0) Sodium Level 142 MMOL/L (136-145) Potassium Level 3.5 MMOL/L (3.5-5.1) Chloride Level 107 MMOL/L (98-107) Carbon Dioxide Level 29 MMOL/L (21-32) Anion Gap 7 mmol/L (5-15) Blood Urea Nitrogen 8 mg/dL (7-18) Creatinine 0.9 MG/DL (0.55-1.30) Estimat Glomerular Filtration Rate mL/min (>60) Glucose Level 102 MG/DL (74-106) Calcium Level 8.8 MG/DL (8.5-10.1) Magnesium Level 1.9 MG/DL (1.8-2.4) Current Medications Medications (Trade) Dose Ordered Sig/Valeria Route PRN Reason Start Time Stop Time Status Last Admin Dose Admin Diltiazem HCl (Cardizem) 30 mg EVERY 8 HOURS ORAL 03/19/18 14:00 04/18/18 13:59 03/20/18 13:45 Hydrocortisone (Anusol HC) 1 applic Q12HR RECTAL 03/16/18 21:00 04/15/18 20:59 03/20/18 08:57 Insulin Aspart (NovoLOG) BEFORE MEALS AND HS SUBQ 03/16/18 21:00 04/15/18 20:59 03/19/18 21:56 Lorazepam (Ativan 2mg/ml 1ml) 1 mg Q6H PRN IV For Anxiety 03/16/18 21:44 03/23/18 21:43 03/20/18 10:15 Morphine Sulfate (Morphine Sulfate) 2 mg Q4H PRN IVP For Pain 03/16/18 21:44 03/23/18 21:43 03/20/18 16:46 Mupirocin (Bactroban Oint) 1 applic THREE TIMES A DAY TOPIC 03/18/18 18:00 03/23/18 17:59 03/20/18 17:44 Pantoprazole (Protonix) 40 mg BIAC ORAL 03/18/18 16:45 04/17/18 16:44 03/20/18 16:46 Quetiapine Fumarate (SEROquel) 25 mg DAILY ORAL 03/17/18 09:00 04/16/18 08:59 03/20/18 08:56 Shreyas Flores M.D. Mar 20, 2018 19:22
--- NOTE | 2018-03-20 19:45 | NUR ---
NURSE NOTES patient received. patient in no acute distress at this time. patient complains of no pain at this time. patient awake alert and oriented x3. IV intact patent and asymptomatic. patient bedbound. bed in lowest position and locked.d call light within reach. bed in lowest position. will continue to monitor.
[2018-03-21] MEDS: dilTIAZem HCl 30mg tab ORAL SCH ×2 (05:52→15:52)
[2018-03-21] MEDS: NovoLOG Insulin Flexpen SUBQ SCH ×3 (06:12→15:54)
--- NOTE | 2018-03-21 07:26 | NUR ---
HAND-OFF: Report given to ev morales.
[2018-03-21 08:00] VITALS: BP 156/81
[2018-03-21 08:18] LABS: BASOPHILS % (AUTO) 1.1 % (0.0-2.0); EOSINOPHILS % (AUTO) 3.6 % (0.0-3.0); HEMATOCRIT 31.3 % (42.0-52.0); HEMOGLOBIN 10.1 G/DL (14.2-18.0); LYMPHOCYTES % (AUTO) 11.6 % (20.0-45.0); MEAN CORPUSCULAR VOLUME 87 FL (80-99); MONOCYTES % (AUTO) 16.9 % (1.0-10.0); NEUTROPHILS % (AUTO) 66.9 % (45.0-75.0); PLATELET COUNT 275 K/UL (150-450); RED CELL DISTRIBUTION WIDTH 22.1 % (11.6-14.8); WHITE BLOOD COUNT 14.3 K/UL (4.8-10.8)
[2018-03-21 08:26] LABS: ANION GAP 8 mmol/L (5-15); BLOOD UREA NITROGEN 10 mg/dL (7-18); CALCIUM 8.9 MG/DL (8.5-10.1); CARBON DIOXIDE 28 MMOL/L (21-32); CHLORIDE 107 MMOL/L (98-107); CREATININE 0.9 MG/DL (0.55-1.30); POTASSIUM 3.5 MMOL/L (3.5-5.1); SODIUM 143 MMOL/L (136-145)
[2018-03-21] MEDS: Morphine Sulfate 2mg/ml Inj IVP PRN (09:56)
--- NOTE | 2018-03-21 10:18 | GI Progress Note ---
Assessment/Plan Problems: (1) Acute hemorrhoid ICD Codes: K64.9 - Unspecified hemorrhoids SNOMED: 0808181, 77230323 (2) LGI bleed ICD Codes: K92.2 - Gastrointestinal hemorrhage, unspecified SNOMED: 80257895 (3) Gastrointestinal hemorrhage ICD Codes: K92.2 - Gastrointestinal hemorrhage, unspecified SNOMED: 49942417 (4) Anemia ICD Codes: D64.9 - Anemia, unspecified SNOMED: 721432833 Status: progressing Status Narrative Discussed with Dr. Dixon Assessment/Plan s/p EGD colonoscopy SUMMARY OF FINDINGS: 1. History of right hemicolectomy with one polyp at the anastomosis, status post polypectomy. 2. Fair colonic prep. 3. Diverticulosis. 4. Sigmoid polyp removed with cold biopsy. 5. Rectal ulceration, status post biopsy. 6. Hemorrhoids. stable H&H RECOMMENDATIONS: 1. Resume diet. 2. Follow labs. 3. Follow biopsy results. 4. okay for DC per GI standpoint The patient was seen and examined at bedside and all new and available data was reviewed in the patients chart. I agree with the above findings, impression and plan. (Patient seen earlier today. Signature stamp does not reflect patient encounter time.). - Hitesh Dixon MD Subjective Gastrointestinal/Abdominal: Reports: no symptoms Subjective Denies any abdominal pain Rectal bleeding has improved, mainly resolved Objective Last 24 Hour Vital Signs Date Time Temp Pulse Resp B/P (MAP) Pulse Ox O2 Delivery O2 Flow Rate FiO2 03/21/18 05:52 83 108/82 03/21/18 04:00 83 03/21/18 00:00 101 03/20/18 22:22 114 108/82 03/20/18 21:00 Room Air 03/20/18 20:00 114 03/20/18 17:16 97.0 03/20/18 16:00 97.0 92 20 108/82 (91) 94 03/20/18 15:58 82 03/20/18 13:45 90 135/88 03/20/18 11:57 97.2 80 135/88 (104) 03/20/18 11:38 106 Intake and Output 03/20/18 03/21/18 19:00 07:00 Intake Total 460 ml 120 ml Balance 460 ml 120 ml Intake Oral 360 ml 120 ml IV Total 100 ml # Voids 4 Laboratory Tests Test 03/20/18 12:05 03/21/18 07:25 White Blood Count 12.8 K/UL (4.8-10.8) H 14.3 K/UL (4.8-10.8) H Red Blood Count 3.78 M/UL (4.70-6.10) L 3.60 M/UL (4.70-6.10) L Hemoglobin 10.2 G/DL (14.2-18.0) L 10.1 G/DL (14.2-18.0) L Hematocrit 32.7 % (42.0-52.0) L 31.3 % (42.0-52.0) L Mean Corpuscular Volume 86 FL (80-99) 87 FL (80-99) Mean Corpuscular Hemoglobin 27.0 PG (27.0-31.0) 28.2 PG (27.0-31.0) Mean Corpuscular Hemoglobin Concent 31.2 G/DL (32.0-36.0) L 32.4 G/DL (32.0-36.0) Red Cell Distribution Width 21.1 % (11.6-14.8) H 22.1 % (11.6-14.8) H Platelet Count 257 K/UL (150-450) 275 K/UL (150-450) Mean Platelet Volume 6.8 FL (6.5-10.1) 7.0 FL (6.5-10.1) Neutrophils (%) (Auto) 67.4 % (45.0-75.0) 66.9 % (45.0-75.0) Lymphocytes (%) (Auto) 11.8 % (20.0-45.0) L 11.6 % (20.0-45.0) L Monocytes (%) (Auto) 15.6 % (1.0-10.0) H 16.9 % (1.0-10.0) H Eosinophils (%) (Auto) 3.7 % (0.0-3.0) H 3.6 % (0.0-3.0) H Basophils (%) (Auto) 1.5 % (0.0-2.0) 1.1 % (0.0-2.0) Sodium Level 143 MMOL/L (136-145) Potassium Level 3.5 MMOL/L (3.5-5.1) Chloride Level 107 MMOL/L (98-107) Carbon Dioxide Level 28 MMOL/L (21-32) Anion Gap 8 mmol/L (5-15) Blood Urea Nitrogen 10 mg/dL (7-18) Creatinine 0.9 MG/DL (0.55-1.30) Estimat Glomerular Filtration Rate mL/min (>60) Glucose Level 103 MG/DL (74-106) Calcium Level 8.9 MG/DL (8.5-10.1) Height (Feet): 5 Height (Inches): 9.00 Weight (Pounds): 232 General Appearance: WD/WN, no apparent distress, alert Cardiovascular: normal rate Respiratory/Chest: normal breath sounds, no respiratory distress Abdominal Exam: normal bowel sounds, non tender, soft Extremities: normal range of motion, non-tender Kristal Herman NP Mar 21, 2018 10:18
[2018-03-21 12:00] VITALS: BP 149/86
[2018-03-21 12:07] LABS: EOSINOPHILS % (AUTO) 3.9 % (0.0-3.0); HEMATOCRIT 31.3 % (42.0-52.0); HEMOGLOBIN 9.8 G/DL (14.2-18.0); MEAN CORPUSCULAR VOLUME 87 FL (80-99); MONOCYTES % (AUTO) 16.2 % (1.0-10.0); NEUTROPHILS % (AUTO) 66.9 % (45.0-75.0); PLATELET COUNT 258 K/UL (150-450); RED BLOOD COUNT 3.58 M/UL (4.70-6.10); RED CELL DISTRIBUTION WIDTH 21.7 % (11.6-14.8); WHITE BLOOD COUNT 13.3 K/UL (4.8-10.8)
--- NOTE | 2018-03-21 12:30 | Surgery Progress Note ---
Surgery Progress Note Subjective Additional Comments no acute events. comfortable. stable. no pain. no n/v/f/c. Objective Last 24 Hour Vital Signs Date Time Temp Pulse Resp B/P (MAP) Pulse Ox O2 Delivery O2 Flow Rate FiO2 03/21/18 09:00 Room Air 03/21/18 08:00 97.2 89 16 156/81 (106) 92 03/21/18 05:52 83 108/82 03/21/18 04:00 83 03/21/18 00:00 101 03/20/18 22:22 114 108/82 03/20/18 21:00 Room Air 03/20/18 20:00 114 03/20/18 17:16 97.0 03/20/18 16:00 97.0 92 20 108/82 (91) 94 03/20/18 15:58 82 03/20/18 13:45 90 135/88 I&O Intake and Output 03/20/18 03/21/18 19:00 07:00 Intake Total 460 ml 120 ml Balance 460 ml 120 ml Intake Oral 360 ml 120 ml IV Total 100 ml # Voids 4 Drains: none Cardiovascular: RSR Respiratory: clear Abdomen: soft, flat, non-tender, present bowel sounds, non-distended Extremities: other Laboratory Tests Test 03/21/18 07:25 03/21/18 12:00 White Blood Count 14.3 K/UL (4.8-10.8) H 13.3 K/UL (4.8-10.8) H Red Blood Count 3.60 M/UL (4.70-6.10) L 3.58 M/UL (4.70-6.10) L Hemoglobin 10.1 G/DL (14.2-18.0) L 9.8 G/DL (14.2-18.0) L Hematocrit 31.3 % (42.0-52.0) L 31.3 % (42.0-52.0) L Mean Corpuscular Volume 87 FL (80-99) 87 FL (80-99) Mean Corpuscular Hemoglobin 28.2 PG (27.0-31.0) 27.4 PG (27.0-31.0) Mean Corpuscular Hemoglobin Concent 32.4 G/DL (32.0-36.0) 31.4 G/DL (32.0-36.0) L Red Cell Distribution Width 22.1 % (11.6-14.8) H 21.7 % (11.6-14.8) H Platelet Count 275 K/UL (150-450) 258 K/UL (150-450) Mean Platelet Volume 7.0 FL (6.5-10.1) 7.7 FL (6.5-10.1) Neutrophils (%) (Auto) 66.9 % (45.0-75.0) 66.9 % (45.0-75.0) Lymphocytes (%) (Auto) 11.6 % (20.0-45.0) L 12.0 % (20.0-45.0) L Monocytes (%) (Auto) 16.9 % (1.0-10.0) H 16.2 % (1.0-10.0) H Eosinophils (%) (Auto) 3.6 % (0.0-3.0) H 3.9 % (0.0-3.0) H Basophils (%) (Auto) 1.1 % (0.0-2.0) 1.0 % (0.0-2.0) Sodium Level 143 MMOL/L (136-145) Potassium Level 3.5 MMOL/L (3.5-5.1) Chloride Level 107 MMOL/L (98-107) Carbon Dioxide Level 28 MMOL/L (21-32) Anion Gap 8 mmol/L (5-15) Blood Urea Nitrogen 10 mg/dL (7-18) Creatinine 0.9 MG/DL (0.55-1.30) Estimat Glomerular Filtration Rate mL/min (>60) Glucose Level 103 MG/DL (74-106) Calcium Level 8.9 MG/DL (8.5-10.1) Plan Problems: (1) LGI bleed Assessment & Plan: 73 year old male with Acute GI bleed. H/H stable now. no n /v/f/c/. care dependant male from [facility] with multiple medical comorbidities. on ASA prior. s/p colonoscopy. rectal ulcer, polyp at prior right narayan, and hemorrhoids noted. no active bleeding. biopsies taken labs stable tolerating diet no bleeding -no acute surgical intervention planned. -diet as tolerated -okay to d/c from surgical standpoint thank you for allowing me to participate in patients care (2) Gastrointestinal hemorrhage Torres Jauregui Mar 21, 2018 12:30
--- NOTE | 2018-03-21 14:54 | Infectious Diseases Prog Note ---
Assessment/Plan Problems: (1) Leukocytosis Assessment & Plan: improving, rule out sepsis , continue ceftriaxone and metronidazole empirically, blood culture x2 was canceled for unclear reason to me . (2) UTI (urinary tract infection) Assessment & Plan: with negative culture , on ceftriaxone to cover colitis (3) Gastrointestinal hemorrhage Assessment & Plan: had colonoscopy which showed rectal ulcer and hemorrhoids , S/P biopsy of the rectal ulcer . GI and general surgery are following , monitor H/H , transfuse as needed (4) COPD (chronic obstructive pulmonary disease) Assessment & Plan: continue inhalers, antibiotics and oxygen as needed (5) MRSA colonization Assessment & Plan: he is colonized , may remove from contact isolation for now , continue Bactroban intranasally for 5 days total Subjective Constitutional: Reports: no symptoms HEENT: Reports: no symptoms Respiratory: Reports: no symptoms Breasts: Reports: no symptoms Cardiovascular: Reports: no symptoms Gastrointestinal/Abdominal: Reports: no symptoms Genitourinary: Reports: no symptoms Neurologic: Reports: no symptoms Psychiatric: Reports: no symptoms Skin: Reports: no symptoms Endocrine: Reports: no symptoms Hematologic: Reports: no symptoms Musculoskeletal: Reports: no symptoms Allergies: Coded Allergies: No Known Allergies (Unverified , 03/16/18) Objective Vital Signs Last 24 Hour Vital Signs Date Time Temp Pulse Resp B/P (MAP) Pulse Ox O2 Delivery O2 Flow Rate FiO2 03/21/18 09:00 Room Air 03/21/18 08:00 97.2 89 16 156/81 (106) 92 03/21/18 05:52 83 108/82 03/21/18 04:00 83 03/21/18 00:00 101 03/20/18 22:22 114 108/82 03/20/18 21:00 Room Air 03/20/18 20:00 114 03/20/18 17:16 97.0 03/20/18 16:00 97.0 92 20 108/82 (91) 94 03/20/18 15:58 82 Height (Feet): 5 Height (Inches): 9.00 Weight (Pounds): 232 General Appearance: WD/WN, no acute distress HEENT: normocephalic, atraumatic, anicteric, mucous membranes moist, PERRL Respiratory/Chest: chest wall non-tender, lungs clear, normal breath sounds, no respiratory distress, no accessory muscle use Cardiovascular: normal peripheral pulses, normal rate, regular rhythm, no gallop/murmur, no JVD Abdomen: normal bowel sounds, soft, non tender, no organomegaly, non distended , no mass, no scars Genitourinary: normal external genitalia Extremities: no cyanosis, no clubbing Skin: no rash, no lesions, no ulcers Neurologic/Psychiatric: alert, responsive Lymphatic: no neck adenopathy, no groin adenopathy Musculoskeletal: normal muscle bulk, no effusion Laboratory Tests Test 03/21/18 07:25 03/21/18 12:00 White Blood Count 14.3 K/UL (4.8-10.8) H 13.3 K/UL (4.8-10.8) H Red Blood Count 3.60 M/UL (4.70-6.10) L 3.58 M/UL (4.70-6.10) L Hemoglobin 10.1 G/DL (14.2-18.0) L 9.8 G/DL (14.2-18.0) L Hematocrit 31.3 % (42.0-52.0) L 31.3 % (42.0-52.0) L Mean Corpuscular Volume 87 FL (80-99) 87 FL (80-99) Mean Corpuscular Hemoglobin 28.2 PG (27.0-31.0) 27.4 PG (27.0-31.0) Mean Corpuscular Hemoglobin Concent 32.4 G/DL (32.0-36.0) 31.4 G/DL (32.0-36.0) L Red Cell Distribution Width 22.1 % (11.6-14.8) H 21.7 % (11.6-14.8) H Platelet Count 275 K/UL (150-450) 258 K/UL (150-450) Mean Platelet Volume 7.0 FL (6.5-10.1) 7.7 FL (6.5-10.1) Neutrophils (%) (Auto) 66.9 % (45.0-75.0) 66.9 % (45.0-75.0) Lymphocytes (%) (Auto) 11.6 % (20.0-45.0) L 12.0 % (20.0-45.0) L Monocytes (%) (Auto) 16.9 % (1.0-10.0) H 16.2 % (1.0-10.0) H Eosinophils (%) (Auto) 3.6 % (0.0-3.0) H 3.9 % (0.0-3.0) H Basophils (%) (Auto) 1.1 % (0.0-2.0) 1.0 % (0.0-2.0) Sodium Level 143 MMOL/L (136-145) Potassium Level 3.5 MMOL/L (3.5-5.1) Chloride Level 107 MMOL/L (98-107) Carbon Dioxide Level 28 MMOL/L (21-32) Anion Gap 8 mmol/L (5-15) Blood Urea Nitrogen 10 mg/dL (7-18) Creatinine 0.9 MG/DL (0.55-1.30) Estimat Glomerular Filtration Rate mL/min (>60) Glucose Level 103 MG/DL (74-106) Calcium Level 8.9 MG/DL (8.5-10.1) Current Medications Medications (Trade) Dose Ordered Sig/Valeria Route PRN Reason Start Time Stop Time Status Last Admin Dose Admin Diltiazem HCl (Cardizem) 30 mg EVERY 8 HOURS ORAL 03/19/18 14:00 04/18/18 13:59 03/21/18 05:52 Hydrocortisone (Anusol HC) 1 applic Q12HR RECTAL 03/16/18 21:00 04/15/18 20:59 03/21/18 10:08 Insulin Aspart (NovoLOG) BEFORE MEALS AND HS SUBQ 03/16/18 21:00 04/15/18 20:59 03/21/18 06:12 Lorazepam (Ativan 2mg/ml 1ml) 1 mg Q6H PRN IV For Anxiety 03/16/18 21:44 03/23/18 21:43 03/20/18 10:15 Morphine Sulfate (Morphine Sulfate) 2 mg Q4H PRN IVP For Pain 03/16/18 21:44 03/23/18 21:43 03/21/18 09:56 Mupirocin (Bactroban Oint) 1 applic THREE TIMES A DAY TOPIC 03/18/18 18:00 03/23/18 17:59 03/21/18 10:08 Pantoprazole (Protonix) 40 mg BIAC ORAL 03/18/18 16:45 04/17/18 16:44 03/21/18 05:52 Quetiapine Fumarate (SEROquel) 25 mg DAILY ORAL 03/17/18 09:00 04/16/18 08:59 03/21/18 09:00 Shreyas Flores M.D. Mar 21, 2018 14:54
[2018-03-21 16:00] VITALS: BP 152/74
--- NOTE | 2018-03-21 16:32 | General Progress Note ---
Assessment/Plan Assessment/Plan ASSESSMENT/RECOMMENDATION: # Anemia due to GI bleeding, unclear source. GI and Surgery are following. --> s/p colo today and results are pending --> Monitor hemoglobin and hematocrit. --> Continue PPI, transfuse as needed. May need endoscopy. --> on ppi , does not need octreotide # Anemia of iron deficiency, ferritin is 50 --> started on iv iron x 5 doses # Leukocytosis, rule out sepsis. We will start ceftriaxone and metronidazole empiric coverage for possible intra-abdominal infection and send blood culture x2. --> closely monitor for improvement --> smear has been ordered, no abnml lymphocytes noted --> does not need jak2 at this time # UTI. We will start ceftriaxone. Pending urine culture results. --> appreciate Id care # COPD. Continue inhalers, antibiotics, and oxygen as needed. Thank you for the consult. Greatly appreciate consultation. Subjective Constitutional: Denies: no symptoms, chills, diaphoresis, fever, malaise, weakness, other HEENT: Denies: no symptoms, eye pain, blurred vision, tearing, double vision, ear pain, ear discharge, nose pain, nose congestion, throat pain, throat swelling, mouth pain, mouth swelling, other Cardiovascular: Denies: no symptoms, chest pain, edema, irregular heart rate, lightheadedness, palpitations, syncope, other Respiratory: Denies: no symptoms, cough, orthopnea, shortness of breath, SOB with excertion, SOB at rest, sputum, stridor, wheezing, other Gastrointestinal/Abdominal: Denies: no symptoms, abdomen distended, abdominal pain, black stools, tarry stools, blood in stool, constipated, diarrhea, difficulty swallowing, nausea, poor appetite, poor fluid intake, rectal bleeding , vomiting, other Genitourinary: Denies: no symptoms, burning, discharge, frequency, flank pain, hematuria, incontinence, pain, urgency, other Neurologic/Psychiatric: Denies: no symptoms, anxiety, depressed, emotional problems, headache, numbness, paresthesia, pre-existing deficit, seizure, tingling, tremors, weakness, other Endocrine: Denies: no symptoms, excessive sweating, flushing, intolerance to cold, intolerance to heat, increased hunger, increased thirst, increased urine, unexplained weight gain, unexplained weight loss, other Hematologic/Lymphatic: Denies: no symptoms, anemia, easy bleeding, easy bruising, other Allergies: Coded Allergies: No Known Allergies (Unverified , 03/16/18) Subjective 03/19: seen by bedside, s/p colonoscopy, biopsy taken. no active bleeding. labs stable 03/20: Pt is awake, resting in bed, no acute distress, stable 03/21: seen by bedside, awake, comfortable, no acute distress Objective Last 24 Hour Vital Signs Date Time Temp Pulse Resp B/P (MAP) Pulse Ox O2 Delivery O2 Flow Rate FiO2 03/21/18 15:52 89 149/86 03/21/18 12:00 97.9 89 16 149/86 (107) 95 03/21/18 09:00 Room Air 03/21/18 08:00 97.2 89 16 156/81 (106) 92 03/21/18 05:52 83 108/82 03/21/18 04:00 83 03/21/18 00:00 101 03/20/18 22:22 114 108/82 03/20/18 21:00 Room Air 03/20/18 20:00 114 03/20/18 17:16 97.0 Intake and Output 03/20/18 03/21/18 19:00 07:00 Intake Total 460 ml 120 ml Balance 460 ml 120 ml Intake Oral 360 ml 120 ml IV Total 100 ml # Voids 4 Laboratory Tests 03/21/18 07:25: White Blood Count 14.3H, Red Blood Count 3.60L, Hemoglobin 10.1L, Hematocrit 31.3L, Mean Corpuscular Volume 87, Mean Corpuscular Hemoglobin 28.2, Mean Corpuscular Hemoglobin Concent 32.4, Red Cell Distribution Width 22.1H, Platelet Count 275, Mean Platelet Volume 7.0, Neutrophils (%) (Auto) 66.9, Lymphocytes (%) (Auto) 11.6L, Monocytes (%) (Auto) 16.9H, Eosinophils (%) (Auto ) 3.6H, Basophils (%) (Auto) 1.1, Sodium Level 143, Potassium Level 3.5, Chloride Level 107, Carbon Dioxide Level 28, Anion Gap 8, Blood Urea Nitrogen 10 , Creatinine 0.9, Estimat Glomerular Filtration Rate , Glucose Level 103, Calcium Level 8.9 03/21/18 12:00: White Blood Count 13.3H, Red Blood Count 3.58L, Hemoglobin 9.8L, Hematocrit 31.3L, Mean Corpuscular Volume 87, Mean Corpuscular Hemoglobin 27.4, Mean Corpuscular Hemoglobin Concent 31.4L, Red Cell Distribution Width 21.7H, Platelet Count 258, Mean Platelet Volume 7.7, Neutrophils (%) (Auto) 66.9, Lymphocytes (%) (Auto) 12.0L, Monocytes (%) (Auto) 16.2H, Eosinophils (%) (Auto ) 3.9H, Basophils (%) (Auto) 1.0 Height (Feet): 5 Height (Inches): 9.00 Weight (Pounds): 232 Objective PHYSICAL EXAMINATION GENERAL: An elderly male, lying in bed, awake, alert, responsive, not in acute distress. HEENT: Normocephalic and atraumatic. Pupils reactive to light equally. Moist oral mucosa. No exudate or thrush. NECK: Supple. No lymphadenopathy. CARDIOVASCULAR: Regular rate and rhythm. No murmur or gallop. LUNGS: He had diminished breathing sounds at the bases with crackles. No wheezing or rhonchi ABDOMEN: Soft, obese, distended, and nontender. Normal bowel sounds. No hepatosplenomegaly or ascites. EXTREMITIES: No edema or cyanosis. Christopher Steinberg MD Mar 21, 2018 16:32
[2018-03-21] MEDS ORDERED: D5NS 1000ml IV ONE (18:29)
[2018-03-21] MEDS ORDERED: Tubing IV Secondary IV ONE (18:29)
--- NOTE | 2018-03-21 18:34 | NUR ---
PATIENT D/C ORDERED WITH HIS BELONGING.
--- NOTE | 2018-03-22 10:45 | Discharge Summary ---
Discharge Summary Hospital Course Date of Admission Date of Discharge Mar 21, 2018 at 18:30 Admitting Diagnosis HPI Hospital Course patient was discharged 03/21/18 Discharge Discharge Disposition Patient was discharged to SNF/Subacute Facility(03) Annalisa Short NP Mar 22, 2018 10:45
== END 2018-03-21 18:30 | DRG 378 ==
LOC: EDBD 13:20 → EMR 14:12 → EDBEDREQ 14:31 → 2E 15:35
DX: K92.2 Gastrointestinal hemorrhage, unspecified (principal); N39.0 Urinary tract infection, site not specified; K62.6 Ulcer of anus and rectum; J44.9 Chronic obstructive pulmonary disease, unspecified; F17.200 Nicotine dependence, unspecified, uncomplicated; F29 Unspecified psychosis not due to a substance or known physiological condition; I10 Essential (primary) hypertension; F03.90 Unspecified dementia, unspecified severity, without behavioral disturbance, psychotic disturbance, mood disturbance, and anxiety; Z79.82 Long term (current) use of aspirin; E03.9 Hypothyroidism, unspecified; D50.0 Iron deficiency anemia secondary to blood loss (chronic); K64.8 Other hemorrhoids; K57.90 Diverticulosis of intestine, part unspecified, without perforation or abscess without bleeding; Z22.322 Carrier or suspected carrier of Methicillin resistant Staphylococcus aureus
CPT/HCPCS: 36415; 71045; 80048; 80053; 81003; 82270; 82378; 82607; 82728; 82746; 82962; 83540; 83550; 83690; 83735; 84439; 84443; 85007; 85025; 85044; 85610; 85730; 86703; 86850; 86900; 86901; 86920; 87081; 87086; 93005; 94003; 94150; 94640; 96374; 96375; 99285; J1815; J7620